=== PATIENT | female | born 1940 | race Caucasian/White ===

== ENCOUNTER → 2017-08-13 11:01 | Outpatient (CLI) | payer MEDICARE, OTHER, SELFPAY ==
[2017-08-13 12:59] LABS: Add Manual Diff / Slide Review NO; Basophils Percent Auto 0.7 % (0-2); Eosinophils Percent Auto 1.2 % (2-4); Hematocrit 39.7 % (36-46); Hemoglobin 13.1 g/dL (12.0-16.0); Lymphocytes Percent Auto 37.5 % (25-40); Mean Corpuscular Hemoglobin 28.9 PG (26-34); Mean Corpuscular Volume 87.7 fL (80-100); Monocytes Percent Auto 8.3 % (3-14); Neutrophils Absolute Auto 2500 /uL (3000-5900); Neutrophils Percent Auto 52.3 % (50-75); Platelet Count 273 X10^3/uL (150-400); Red Blood Cell Count 4.53 X10^6/uL (4.0-5.2); Red Cell Distribution Width 15.5 % (11.6-14.8); White Blood Cell Count 4.9 X10^3/uL (4.5-11.0)
[2017-08-13 13:18] LABS: Alanine Aminotransferase 36 IU/L (9-52); Albumin Globulin Ratio 1.5 (1.0-2.8); Alkaline Phosphatase 102 U/L (38-126); Aspartate Aminotransferase 25 IU/L (14-36); BUN Creatinine Ratio 17.5 (6-22); Bilirubin Total 0.6 mg/dL (0.2-1.3); Blood Urea Nitrogen 14 mg/dL (7-17); Calcium 9.5 mg/dL (8.4-10.2); Carbon Dioxide 25 mmol/L (22-32); Chloride 103 mmol/L (98-107); Cholesterol 179 mg/dL (140-199); Estimated Glomerular Filt Rate > 60.0 mL/min (>60); Globulin 2.7 g/dL (1.7-4.1); Glucose 83 mg/dL (80-110); HDL Cholesterol 78 mg/dL (40-60); HEMOLYSIS < 15 (0-50); LDL Cholesterol Calculated 79 mg/dL (<100); Potassium 4.9 mmol/L (3.4-5.1); Sodium 139 mmol/L (137-145); Total Protein 6.7 g/dL (6.3-8.2); Triglycerides 112 mg/dL (35-150)
[2017-08-13 13:40] LABS: Thyroid Stimulating Hormone 1.31 uIU/mL (0.47-4.68)
== END ==
PROVIDERS: PCP Physician Assistant; Visit Provider Physician Assistant
DX: I10 Essential (primary) hypertension (principal); E03.9 Hypothyroidism, unspecified; E78.5 Hyperlipidemia, unspecified
CPT/HCPCS: 36415; 80053; 80061; 84443; 85025

== ENCOUNTER → 2017-09-20 08:01 | Outpatient (CLI) | payer MEDICARE, OTHER, SELFPAY ==
--- NOTE | 2017-09-20 | DI.MG.S_ITS ---
BILATERAL DIGITAL SCREENING MAMMOGRAM 3D/2D WITH CAD: 09/20/2017 CLINICAL: Routine screening. Family history of breast cancer. Personal history of breast cancer. Comparison is made to exams dated: 09/11/2016 mammogram, 09/11/2015 mammogram, and 09/07/2014 mammogram - [facility]. There are scattered fibroglandular elements in both breasts. Current study was also evaluated with a Computer Aided Detection (CAD) system. There are post operative findings in the left breast. No significant masses, calcifications, or other findings are seen in either breast. There has been no significant interval change. IMPRESSION: NEGATIVE There is no mammographic evidence of malignancy. A 1 year screening mammogram is recommended. This exam was interpreted at Station ID: [id number]. NOTE: For mammograms, a report in lay terms will be sent to the patient. Approximately 15% of breast malignancies will not be visualized mammographically. In the management of a palpable breast mass, a negative mammogram must not discourage biopsy of a clinically suspicious lesion. Electronically Signed By: Dakota stevens/huber:09/20/2017 08:59:12 letter sent: Normal Exam ACR BI-RADS Category 1: Negative [id number]
== END ==
PROVIDERS: Family Provider Physician Assistant; PCP Physician Assistant; Visit Provider Physician Assistant
DX: Z12.31 Encounter for screening mammogram for malignant neoplasm of breast (principal); Z85.3 Personal history of malignant neoplasm of breast; Z80.3 Family history of malignant neoplasm of breast
CPT/HCPCS: 77063; 77067

== ENCOUNTER → 2017-11-17 11:26 | Outpatient (CLI) | payer MEDICARE, OTHER, SELFPAY ==
--- NOTE | 2017-11-17 11:53 | DI.RAD.S_ITS ---
PROCEDURE: XR CERVICAL SPINE 4V OR 5V INDICATIONS: headaches TECHNIQUE: 5 views of the cervical spine were acquired. COMPARISON: None. FINDINGS: Bones: No fractures or dislocations to the T1 level. No suspicious bony lesions. There is normal range of motion between flexion and extension, with preserved normal bony alignment. Note is made of moderately severe degenerative disc height reduction and endplate osteophyte formation at C4-5 and to a slightly lesser degree C5-6. C6-7 and C7-T1 moderate degenerative changes are present also and at none of these levels is significant subluxation during flexion and extension identified. Facet hyperostosis is prominent at C34 through C67, slightly greater on the left than the right Soft tissues: Prevertebral soft tissues are normal in thickness. IMPRESSION: Degenerative disc disease from the mid through the lower thirds of the cervical spine is moderately severe overall with facet hyperostosis through these areas but no ligamentous laxity is seen and no subluxation during flexion and extension was identified. Dictated by: Kevan Denny M.D. on 11/17/2017 at 12:53 Approved by: Kevan Denny M.D. on 11/17/2017 at 12:55
[2017-11-17 12:38] LABS: Erythrocyte Sedimentation Rate 13 MM/HR (0-20)
== END ==
PROVIDERS: Family Provider Physician Assistant; PCP Physician Assistant; Visit Provider Family Medicine
DX: R51 Headache (principal)
CPT/HCPCS: 36415; 72050; 85651

== ENCOUNTER → 2017-11-26 07:25 | Outpatient (CLI) | payer MEDICARE, OTHER, SELFPAY ==
--- NOTE | 2017-11-26 07:26 | DI.MRI.S_ITS ---
PROCEDURE: MR HEAD/BRAIN WO CON INDICATIONS: headaches TECHNIQUE: Non-contrast axial T1 spin echo, axial T2 fast spin echo, sagittal and axial FLAIR, coronal T2 fast spin echo, axial gradient echo, axial diffusion and ADC through the brain. COMPARISON: None. FINDINGS: Image quality: Excellent. CSF spaces: Ventricles appear symmetric in size and shape. Basal cisterns are patent. No extra-axial fluid collections. Brain: No intracranial bleeds or mass effects. There is cerebral volume loss for age. There are periventricular and deep white matter chronic small vessel ischemic changes. Brainstem appears normal. Diffusion-weighted images show no acute ischemic insults. No chronic ischemic insults. Normal intravascular flow voids are present. Skull and face: Calvarial bone marrow is normal in signal. Orbits are normal. Sinuses: Sinuses and mastoids are clear. IMPRESSION: Unremarkable unenhanced examination as above Dictated by: Wilfredo Cummings M.D. on 11/26/2017 at 9:49 Approved by: Wilfredo Cummings M.D. on 11/26/2017 at 9:52
== END ==
PROVIDERS: Family Provider Physician Assistant; PCP Physician Assistant; Visit Provider Family Medicine
DX: R51 Headache (principal)
CPT/HCPCS: 70551

== ENCOUNTER → 2018-06-10 11:57 | Outpatient (CLI) | payer MEDICARE, OTHER, SELFPAY ==
[2018-06-10 15:46] LABS: BUN Creatinine Ratio 15.5 (6-22); Blood Urea Nitrogen 17 mg/dL (7-17); Calcium 9.7 mg/dL (8.4-10.2); Carbon Dioxide 27 mmol/L (22-32); Chloride 98 mmol/L (98-107); Estimated Glomerular Filt Rate 48.2 mL/min (>60); Glucose 99 mg/dL (80-110); HEMOLYSIS < 15 (0-50); Potassium 4.5 mmol/L (3.4-5.1); Sodium 137 mmol/L (137-145)
== END ==
PROVIDERS: PCP Physician Assistant; Visit Provider Internal Medicine Cardiovascular Disease
DX: I10 Essential (primary) hypertension (principal)
CPT/HCPCS: 36415; 80048

== ENCOUNTER → 2018-08-10 13:41 | Outpatient (CLI) | payer MEDICARE, OTHER, SELFPAY ==
[2018-08-10 14:52] LABS: Blood Urea Nitrogen 18 mg/dL (7-17); Calcium 9.6 mg/dL (8.4-10.2); Carbon Dioxide 30 mmol/L (22-32); Chloride 97 mmol/L (98-107); Estimated Glomerular Filt Rate > 60.0 mL/min (>60); Glucose 114 mg/dL (80-110); HEMOLYSIS < 15 (0-50); Potassium 3.7 mmol/L (3.4-5.1); Sodium 135 mmol/L (137-145)
== END ==
PROVIDERS: PCP Physician Assistant; Visit Provider Nurse Practitioner
DX: I10 Essential (primary) hypertension (principal)
CPT/HCPCS: 36415; 80048

== ENCOUNTER → 2018-09-21 09:47 | Outpatient (CLI) | payer MEDICARE, OTHER, SELFPAY ==
--- NOTE | 2018-09-21 | DI.MG.S_ITS ---
BILATERAL DIGITAL SCREENING MAMMOGRAM 3D/2D WITH CAD: 09/21/2018 CLINICAL: Routine screening. Personal history of left breast cancer. Family history of breast cancer. Comparison is made to exams dated: 09/20/2017 mammogram, 09/11/2016 mammogram, and 09/11/2015 mammogram - [facility]. There are scattered fibroglandular elements in both breasts. Current study was also evaluated with a Computer Aided Detection (CAD) system. There are benign post operative findings in the left breast. No significant masses, calcifications, or other findings are seen in either breast. There has been no significant interval change. IMPRESSION: There is no mammographic evidence of malignancy. A 1 year screening mammogram is recommended. This exam was interpreted at Station ID: [id number]. NOTE: For mammograms, a report in lay terms will be sent to the patient. Approximately 15% of breast malignancies will not be visualized mammographically. In the management of a palpable breast mass, a negative mammogram must not discourage biopsy of a clinically suspicious lesion. Electronically Signed By: Estefanía coon/huber:09/21/2018 10:14:42 letter sent: Normal Exam ACR BI-RADS Category 2: Benign Finding(s) 3342F
== END ==
PROVIDERS: PCP Physician Assistant; Visit Provider Physician Assistant
DX: Z12.31 Encounter for screening mammogram for malignant neoplasm of breast (principal); Z85.3 Personal history of malignant neoplasm of breast; Z80.3 Family history of malignant neoplasm of breast
CPT/HCPCS: 77063; 77067

== ENCOUNTER → 2018-11-09 13:08 | Outpatient (CLI) | payer MEDICARE, OTHER, SELFPAY ==
[2018-11-09 14:32] LABS: Alanine Aminotransferase 36 IU/L (9-52); Albumin 4.2 g/dL (3.5-5.0); Albumin Globulin Ratio 1.6 (1.0-2.8); Alkaline Phosphatase 113 U/L (38-126); Aspartate Aminotransferase 28 IU/L (14-36); BUN Creatinine Ratio 21.1 (6-22); Bilirubin Total 0.5 mg/dL (0.2-1.3); Blood Urea Nitrogen 19 mg/dL (7-17); Calcium 10.1 mg/dL (8.4-10.2); Carbon Dioxide 27 mmol/L (22-32); Chloride 94 mmol/L (98-107); Estimated Glomerular Filt Rate > 60.0 mL/min (>60); Globulin 2.7 g/dL (1.7-4.1); Glucose 89 mg/dL (80-110); HEMOLYSIS < 15 (0-50); Potassium 4.4 mmol/L (3.4-5.1); Sodium 134 mmol/L (137-145); Total Protein 6.9 g/dL (6.3-8.2)
== END ==
PROVIDERS: PCP Physician Assistant; Visit Provider Physician Assistant
DX: I10 Essential (primary) hypertension (principal); E03.9 Hypothyroidism, unspecified; E78.2 Mixed hyperlipidemia; R73.09 Other abnormal glucose; R74.8 Abnormal levels of other serum enzymes
CPT/HCPCS: 36415; 80053

== ENCOUNTER 2019-03-27 13:28 | Emergency (ER) | payer MEDICARE, OTHER, SELFPAY ==
[2019-03-27 13:32] VITALS: BP 134/80; PULSE 90; RESP 13; TEMP 36.1; O2SAT 98
--- NOTE | 2019-03-27 13:46 | DI.CT.S_ITS ---
PROCEDURE: CT HEAD/BRAIN WO CON INDICATIONS: left arm numb TECHNIQUE: Noncontrast 4.5 mm thick angled axial sections acquired from the foramen magnum to the vertex, with coronal and sagittal reformats. For radiation dose reduction, the following was used: automated exposure control, adjustment of mA and/or kV according to patient size. COMPARISON: [facility], , MR HEAD/BRAIN WO CON, 11/26/2017, 8:07. FINDINGS: Image quality: Excellent. CSF spaces: Basal cisterns are patent. No extra-axial fluid collections. Ventricles are normal in size and shape. Brain: No midline shift. No intracranial masses or hemorrhage. Hargrove-white matter interface is normal. Skull and face: Calvarium and visualized facial bones are intact, without suspicious lesions. Sinuses: Visualized sinuses and mastoids are clear. IMPRESSION: Negative head CT. No acute intracranial hemorrhage. Dictated by: Thomas Renee M.D. on 03/27/2019 at 13:04 Approved by: Thomas Renee M.D. on 03/27/2019 at 13:05
--- NOTE | 2019-03-27 14:04 | ED_ITS ---
HPI - Neuro Symptoms/Deficit General Chief Complaint: Neuro Symptoms/Deficit Stated Complaint: Pain and Numbness On Left Side Time Seen by Provider: 03/27/19 13:46 Source: patient Mode of arrival: Ambulatory Limitations: no limitations History of Present Illness HPI Narrative: Patient is a 78-year-old female who presents with left arm numbness off and on for while however this morning around 8:00 a.m. she felt lik e it was worse. She has no weakness no neck pain. She has had headache a little bit as well. She says that she has some pain from her shoulder to her fingertips. It is not reproduced whenever she turns her head. She does remember injuring it. She has no difficulty speaking or other focal deficits. She states that she did take nitroglycerin prior to arrival she has no known coronary artery disease is however she does have nitroglycerin she said it did not help. However she did not have any chest pain or shortness of breath or shortness of breath with exertion she denies any heart palpitations. Onset (ago): hour(s) On Anticoagulants: No (baby asa) Related Data Home Medications Medication Instructions Recorded Confirmed alprazolam 0.25 mg PO BEDTIME PRN #0 09/28/08 03/27/19 citalopram 20 mg PO DAILY #0 09/28/08 03/27/19 diltiazem HCl 120 mg PO DAILY #0 06/30/16 03/27/19 aspirin 81 mg PO DAILY 03/27/19 03/27/19 calcium carbonate-vitamin D3 1 tab PO DAILY 03/27/19 03/27/19 [Caltrate 600 plus D] chlorthalidone 25 mg PO DAILY 03/27/19 03/27/19 cholecalciferol (vitamin D3) 2,000 unit PO DAILY 03/27/19 03/27/19 [Vitamin D3] cyanocobalamin (vitamin B-12) 1,000 mcg PO DAILY 03/27/19 03/27/19 [Vitamin B-12] irbesartan 300 mg PO DAILY 03/27/19 03/27/19 levothyroxine 50 mcg PO DAILY 03/27/19 03/27/19 fejkpuqe-dbv-RS-lycopen-lutein 1 tab PO DAILY 03/27/19 03/27/19 [Centrum Silver] nitroglycerin [Nitrostat] 0.4 mg SUBLINGUAL PRN PRN 03/27/19 03/27/19 ondansetron 4 mg TRANSLINGUAL DAILY 03/27/19 03/27/19 Allergies Allergy/AdvReac Type Severity Reaction Status Date / Time Sulfa (Sulfonamide Allergy Severe rash Verified 12/14/17 14:10 Antibiotics) [SULFA (SULFONAMIDE ANTIBIOTICS)] lisinopril [LISINOPRIL] Allergy Intermediate Cough Verified 12/14/17 14:10 Review of Systems Review of Systems ROS Unobtainable: All systems reviewed & are unremarkable except as noted in HPI and below Constitutional Constitutional: Denies chills, Denies fever(s), Denies lethargy and Denies weakness Eyes Eyes: Denies change in vision, Denies eye discharge, Denies irritation and Denies loss of vision Cardiovascular Cardiovascular: Denies chest pain, Denies irregular heart rhythm, Denies lightheadedness, Denies palpitations, Denies dyspnea, Denies dyspnea on exertion and Denies orthopnea Respiratory Respiratory: Denies cough, Denies dyspnea, Denies dyspnea on exertion and Denies wheezing Gastrointestinal Gastrointestinal: Denies abdominal pain, Denies change in bowel habits, Denies diarrhea, Denies nausea and Denies vomiting Genitourinary Genitourinary: Denies hematuria, Denies flank pain, Denies urinary incontinence and Denies urinary urgency Musculoskeletal Musculoskeletal: Denies back pain, Denies muscle weakness, Reports numbness and Reports tingling Integumentary/Breasts Skin/Breast: Denies pruritus, Denies erythema, Denies rash and Denies wounds Neurologic Neurologic: Reports as per HPI, Denies loss of vision, Reports numbness, Reports tingling and Denies weakness Endocrine Endocrine: Denies palpitations Allergic/Immunologic Allergic/Immunologic: Denies wheezing Patient History Social History Smoking Status: Never smoker Smoking Status: Never smoker Substance Use Type: does not use Exam Initial Vital Signs Initial Vital Signs: Vital Signs Temperature 97 F L 03/27/19 13:32 Pulse Rate 90 03/27/19 13:32 Respiratory Rate 13 03/27/19 13:32 Blood Pressure 134/80 03/27/19 13:32 Pulse Oximetry 98 03/27/19 13:32 GENERAL: Well-appearing, well-nourished and in no acute distress. HEENT: Head atraumatic,EOMI, pupils reactive, face symmetric CARDIOVASCULAR: Regular rate and rhythm without murmurs, rubs or gallops. RESPIRATORY: Breath sounds equal bilaterally, no wheezes rales or rhonchi. ABDOMEN: Soft, nontender. Normoactive bowel sounds all 4 quadrants. No guarding or rebound. EXTREMITIES: Normal range of motion, no clubbing or edema. Neurovascularly intact NEUROLOGICAL: Alert and oriented x4.Normal gait and speech. Cranial nerves II through XII grossly intact. Good jagkoy-op-skhc, good tkow-xi-ubay, strength equal bilaterally, no dysarthria or aphasia, sensation in tact to soft touch bilaterally, no visual changes, no facial droop SKIN: Warm, dry, no laceration, no petechiae, no rashes or lesions. Scores NIH Stroke Scale Level of Conciousness: Alert, keenly responsive Ask month/age: Answers both questions correctly. Open/close eyes, close hand: Performs both tasks correctly Best gaze horizontal: Normal Visual borrego: No visual loss Facial palsy: Normal symetrical movement Left arm drift: No drift for full 10 sec Right arm drift: No drift for full 10 sec Left leg drift: No drift for full 10 sec Right leg drift: No drift for full 10 sec Limb ataxia: Absent Sensory on face/arms/legs: Normal, no sensory loss Best language: No aphasia, normal Dysarthria: Normal Extinction or inattention: No abnormality Total NIH Stroke scale score: 0 Course Orders Ordered: Discontinued Medications Sodium Chloride (Normal Saline 0.9%) 1,000 mls @ 150 mls/hr IV CONT RONAL Vital Signs Vital signs: Vital Signs - 8 hr 03/27/19 13:32 03/27/19 14:30 03/27/19 16:10 Temperature 97 F L Pulse Rate 90 59 L 56 L Respiratory Rate 13 14 19 Blood Pressure 134/80 Blood Pressure [Right Arm] 125/76 143/78 H Pulse Oximetry 98 100 100 MDM - Neuro Symptoms/Deficit Lab Data Attestation: I reviewed the patient's lab results. Result diagrams: 03/27/19 14:09 03/27/19 14:09 Labs: Lab Results 03/27/19 03/27/19 03/27/19 Range/Units 14:09 14:09 14:09 WBC 5.8 (4.5-11.0) X10^3/uL RBC 4.17 (4.0-5.2) X10^6/uL Hgb 12.5 (12.0-16.0) g/dL Hct 37.2 (36-46) % MCV 89.4 (80-100) fL MCH 30.1 (26-34) PG MCHC 33.6 (30-36) % RDW 14.6 (11.6-14.8) % Plt Count 311 (150-400) X10^3/uL Neut % (Auto) 53.8 (50-75) % Lymph % (Auto) 36.1 (25-40) % [place] % (Auto) 8.2 (3-14) % Eos % (Auto) 1.2 L (2-4) % Baso % (Auto) 0.7 (0-2) % Neut # (Auto) 3100 (6289-7522) /uL Lymph # (Auto) 2100 (4262-1448) /uL [place]ard # (Auto) 500 (0-900) /uL Eos # (Auto) 100 (0-450) /uL Baso # (Auto) 0 (0-100) /uL PT 9.9 L (10.1-12.7) SECONDS INR 0.9 (0.9-1.3) APTT 31 (26.4-36.2) SECONDS Sodium 136 L (137-145) mmol/L Potassium 3.9 (3.4-5.1) mmol/L Chloride 99 (98-107) mmol/L Carbon Dioxide 30 (22-32) mmol/L BUN 22 H (7-17) mg/dL Creatinine 1.00 (0.52-1.04) mg/dL Estimated GFR 53.6 L (>60) mL/min BUN/Creatinine Ratio 22.0 (6-22) Glucose 106 (80-110) mg/dL Calcium 9.5 (8.4-10.2) mg/dL Urine RBC (0-5/HPF) Urine WBC (0-5/HPF) Ur Renal Epithelial Cell (0-1/HPF) Amorphous Sediment Urine Bacteria (None) Ur Culture Indicated? U Opiates 300ng/mL cut (Negative) Ur Oxycodone Screen (Negative) Urine Methadone Screen (Negative) Ur Barbiturates Screen (Negative) U Tricyclic Antidepress (Negative) Ur Phencyclidine Scrn (Negative) Ur Amphetamines Screen (Negative) U Methamphetamines Scrn (Negative) Ur MDMA Scrn (Ecstasy) (Negative) U Benzodiazepines Scrn (Negative) Urine Cocaine Screen (Negative) U Marijuana (THC) Screen (Negative) 03/27/19 03/27/19 Range/Units 16:10 16:10 WBC (4.5-11.0) X10^3/uL RBC (4.0-5.2) X10^6/uL Hgb (12.0-16.0) g/dL Hct (36-46) % MCV (80-100) fL MCH (26-34) PG MCHC (30-36) % RDW (11.6-14.8) % Plt Count (150-400) X10^3/uL Neut % (Auto) (50-75) % Lymph % (Auto) (25-40) % [place]ard % (Auto) (3-14) % Eos % (Auto) (2-4) % Baso % (Auto) (0-2) % Neut # (Auto) (9489-2437) /uL Lymph # (Auto) (3846-8900) /uL Menard # (Auto) (0-900) /uL Eos # (Auto) (0-450) /uL Baso # (Auto) (0-100) /uL PT (10.1-12.7) SECONDS INR (0.9-1.3) APTT (26.4-36.2) SECONDS Sodium (137-145) mmol/L Potassium (3.4-5.1) mmol/L Chloride (98-107) mmol/L Carbon Dioxide (22-32) mmol/L BUN (7-17) mg/dL Creatinine (0.52-1.04) mg/dL Estimated GFR (>60) mL/min BUN/Creatinine Ratio (6-22) Glucose (80-110) mg/dL Calcium (8.4-10.2) mg/dL Urine RBC 0-1/hpf (0-5/HPF) Urine WBC 1-5/hpf (0-5/HPF) Ur Renal Epithelial Cell 1-5/hpf H (0-1/HPF) Amorphous Sediment 1+ Urine Bacteria Moderate (10-30) H (None) Ur Culture Indicated? Specimen cultured U Opiates 300ng/mL cut Negative (Negative) Ur Oxycodone Screen Negative (Negative) Urine Methadone Screen Negative (Negative) Ur Barbiturates Screen Negative (Negative) U Tricyclic Antidepress Negative (Negative) Ur Phencyclidine Scrn Negative (Negative) Ur Amphetamines Screen Negative (Negative) U Methamphetamines Scrn Negative (Negative) Ur MDMA Scrn (Ecstasy) Negative (Negative) U Benzodiazepines Scrn Negative (Negative) Urine Cocaine Screen Negative (Negative) U Marijuana (THC) Screen Negative (Negative) Urine Dip Bedside Urine Glucose Negative Bedside Urine Bilirubin - Negative Bedside Urine Ketone - Negative Urine Specific [place] 1.015 Bedside Urine Occult Blood - Negative Bedside Urine pH 7.0 Bedside Urine Protein - Negative Bedside Urine Urobilinogen - Negative Bedside Urine Nitrite - Negative Bedside Urine Leukocytes +/- [address] scan - head: Radiologist's Impression: PROCEDURE: CT HEAD/BRAIN WO CON INDICATIONS: left arm numb TECHNIQUE: Noncontrast 4.5 mm thick angled axial sections acquired from the foramen magnum to the vertex, with coronal and sagittal reformats. For radiation dose reduction, the following was used: automated exposure control, adjustment of mA and/or kV according to patient size. COMPARISON: [facility], , MR HEAD/BRAIN WO CON, 11/26/2017, 8:07. FINDINGS: Image quality: Excellent. CSF spaces: Basal cisterns are patent. No extra-axial fluid collections. Ventricles are normal in size and shape. Brain: No midline shift. No intracranial masses or hemorrhage. Hargrove-white matter interface is normal. Skull and face: Calvarium and visualized facial bones are intact, without suspicious lesions. Sinuses: Visualized sinuses and mastoids are clear. IMPRESSION: Negative head CT. No acute intracranial hemorrhage. Dictated by: Thomas Renee M.D. on 03/27/2019 at 13:04 CT - cervical spine: Radiologist's Impression: PROCEDURE: CT CERVICAL SPINE WO CON INDICATIONS: left arm numb TECHNIQUE: Noncontrast 3 mm thick sections acquired from the skull base to the T4 level. Sagittal and coronal reformats were then constructed. For radiation dose reduction, the following was used: automated exposure control, adjustment of mA and/or kV according to patient size. COMPARISON: None. FINDINGS: Image quality: Excellent. Bones: No fractures or dislocations. Visualized superior ribs are intact. Note is made of moderately severe degenerative disc disease along the cervical spine from C4- 5 through C7-T1. Slight anterolisthesis (grade 1) of C3 on C4 is present, likely due to to ligamentous laxity from degenerative change. Facet osteoarthritis is moderate in severity from C4-T1, as potential etiology for nerve root impingement. Soft tissues: Prevertebral soft tissues are normal in thickness. No paravertebral hematomas. No apical pneumothoraces. IMPRESSION: Multilevel degenerative disc disease and facet osteoarthritis to the degree that spinal and foraminal stenosis likely is present. This extends from C4 through T1, and followup by accurate assessment with MR scanning for degree of nerve root impingement and possible disc bulge or herniation contributing to current symptomatology may be warranted. No trauma found. Dictated by: Kevan Denny M.D. on 03/27/2019 at 15:12 ECG Data Attestation: I personally reviewed and interpreted this ECG as follows: Prior ECG tracings: available for review Interpretation: The normal sinus rhythm rate 59 p.r. interval 252 QRS [address] elevation depression or T-wave inversions similar to previous EKG 2015 [facility] Narrative Medical decision making narrative: Patient has been having intermittent left arm numbness ongoing for awhile. CT of cervical spine does show significant degenerative changes. Symptoms seem to be more consistent with a neuropathy rather than cardiac or neurologic. I did recommend she have outpatient MRI with her PCP. 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 *What to do: Recommend MRI possible spine surgery consultation *Continue to take medications as directed Tylenol 650 mg every 4-6 hours if needed for pain *Follow up with your primary care provider in 2-3 days *Return to ER if you should have increasing weakness inability to grab things worsening numbness chest pain she or any new, worsening or concerning symptoms Prescriptions: No Action alprazolam 0.25 mg Tablet 0.25 mg PO BEDTIME PRN (Reason: Anxiety) Qty: 0 RF: 0 citalopram 20 mg Tablet 20 mg PO DAILY Qty: 0 RF: 0 diltiazem HCl 120 MG capsule,extended release 24hr 120 mg PO DAILY Qty: 0 RF: 0 chlorthalidone 25 mg tablet 25 mg PO DAILY RF: 0 aspirin 81 mg Tablet,Delayed Release (Dr/Ec) 81 mg PO DAILY RF: 0 levothyroxine 50 mcg tablet 50 mcg PO DAILY RF: 0 irbesartan 300 mg tablet 300 mg PO DAILY RF: 0 nitroglycerin [Nitrostat] 0.4 mg Tablet, Sublingual 0.4 mg sublingual PRN PRN (Reason: Chest Pain) RF: 0 ondansetron 4 mg tablet,disintegrating 4 mg translingual DAILY RF: 0 Centrum Silver 0.4-300-250 mg-mcg-mcg Tablet 1 tab PO DAILY RF: 0 cyanocobalamin (vitamin B-12) [Vitamin B-12] 1,000 mcg Tablet 1,000 mcg PO DAILY RF: 0 cholecalciferol (vitamin D3) [Vitamin D3] 2,000 unit Tablet 2,000 unit PO DAILY RF: 0 Caltrate 600 plus D 600 mg (1,500 mg)-800 unit Tablet,Chewable 1 tab PO DAILY RF: 0 Referrals: Nereyda Oliver PA-C [Primary Care Provider] -
[2019-03-27 14:18] LABS: Add Manual Diff / Slide Review NO; Basophils Absolute Auto 0 /uL (0-100); Basophils Percent Auto 0.7 % (0-2); Eosinophils Absolute Auto 100 /uL (0-450); Eosinophils Percent Auto 1.2 % (2-4); Hematocrit 37.2 % (36-46); Hemoglobin 12.5 g/dL (12.0-16.0); Lymphocytes Absolute Auto 2100 /uL (1100-4500); Lymphocytes Percent Auto 36.1 % (25-40); Mean Corpuscular HGB Conc 33.6 % (30-36); Mean Corpuscular Hemoglobin 30.1 PG (26-34); Mean Corpuscular Volume 89.4 fL (80-100); Monocytes Absolute Auto 500 /uL (0-900); Monocytes Percent Auto 8.2 % (3-14); Neutrophils Absolute Auto 3100 /uL (1500-7000); Neutrophils Percent Auto 53.8 % (50-75); Platelet Count 311 X10^3/uL (150-400); Red Blood Cell Count 4.17 X10^6/uL (4.0-5.2); Red Cell Distribution Width 14.6 % (11.6-14.8); White Blood Cell Count 5.8 X10^3/uL (4.5-11.0)
[2019-03-27 14:25] LABS: INR 0.9 (0.9-1.3); Prothrombin Time 9.9 SECONDS (10.1-12.7)
[2019-03-27 14:28] LABS: Blood Urea Nitrogen 22 mg/dL (7-17); Calcium 9.5 mg/dL (8.4-10.2); Carbon Dioxide 30 mmol/L (22-32); Chloride 99 mmol/L (98-107); Estimated Glomerular Filt Rate 53.6 mL/min (>60); Glucose 106 mg/dL (80-110); HEMOLYSIS 15 (0-50); PTT Partial Thromboplastin Tim 31 SECONDS (26.4-36.2); Potassium 3.9 mmol/L (3.4-5.1); Sodium 136 mmol/L (137-145)
--- NOTE | 2019-03-27 14:29 | DI.CT.S_ITS ---
PROCEDURE: CT CERVICAL SPINE WO CON INDICATIONS: left arm numb TECHNIQUE: Noncontrast 3 mm thick sections acquired from the skull base to the T4 level. Sagittal and coronal reformats were then constructed. For radiation dose reduction, the following was used: automated exposure control, adjustment of mA and/or kV according to patient size. COMPARISON: None. FINDINGS: Image quality: Excellent. Bones: No fractures or dislocations. Visualized superior ribs are intact. Note is made of moderately severe degenerative disc disease along the cervical spine from C4-5 through C7-T1. Slight anterolisthesis (grade 1) of C3 on C4 is present, likely due to to ligamentous laxity from degenerative change. Facet osteoarthritis is moderate in severity from C4-T1, as potential etiology for nerve root impingement. Soft tissues: Prevertebral soft tissues are normal in thickness. No paravertebral hematomas. No apical pneumothoraces. IMPRESSION: Multilevel degenerative disc disease and facet osteoarthritis to the degree that spinal and foraminal stenosis likely is present. This extends from C4 through T1, and followup by accurate assessment with MR scanning for degree of nerve root impingement and possible disc bulge or herniation contributing to current symptomatology may be warranted. No trauma found. Dictated by: Kevan Denny M.D. on 03/27/2019 at 15:12 Approved by: Kevan Denny M.D. on 03/27/2019 at 15:14
[2019-03-27 14:30] VITALS: BP 125/76; PULSE 59; RESP 14; O2SAT 100
[2019-03-27 16:10] VITALS: BP 143/78; PULSE 56; RESP 19; O2SAT 100
[2019-03-27 16:39] LABS: Amorphous Sediment Urine 1+; Bacteria Urine Moderate (10-30); Culture Indicated Urine Specimen Cultured; RBC Urine 0-1/HPF (0-5/HPF); Renal Epithelial Cells Urine 1-5/HPF (0-1/HPF); WBC Urine 1-5/HPF (0-5/HPF)
[2019-03-27 17:12] LABS: UR Morphine/Opiate cutoff 300 Negative (Negative); Ur Creatinine Normal (Normal); Ur Specific Gravity Normal (Normal); Urine Amphetamines Negative (Negative); Urine Barbiturates Negative (Negative); Urine Benzodiazepines Negative (Negative); Urine Cocaine Negative (Negative); Urine MDMA Negative (Negative); Urine Methadone Negative (Negative); Urine Methamphetamines Negative (Negative); Urine Oxycodone Negative (Negative); Urine Phencyclidine Negative (Negative); Urine Tetrahydrocannabinol Negative (Negative); Urine Tricyclic Antidepressant Negative (Negative); Urine pH Normal (Normal)
== END 2019-03-27 17:11 | disposition home or self-care (01) ==
PROVIDERS: Emergency Provider Emergency Medicine; PCP Physician Assistant
DX: G62.9 Polyneuropathy, unspecified (principal); R07.9 Chest pain, unspecified
CPT/HCPCS: 36415; 70450; 72125; 80048; 80305; 81003; 81015; 85025; 85610; 85730; 87086; 93005; 99284; 99285

== ENCOUNTER → 2019-04-05 09:39 | Outpatient (CLI) | payer MEDICARE, OTHER, SELFPAY ==
--- NOTE | 2019-04-05 | DI.MRI.S_ITS ---
PROCEDURE: MR CERVICAL SPINE WO CON INDICATIONS: Cervical root disorders, not elsewhere classified TECHNIQUE: Noncontrast sagittal T1 spin echo and T2 fast spin echo, sagittal STIR, foraminal oblique sagittal T2 fast spin echo, and axial gradient echo or T2 fast spin echo through the cervical spine. COMPARISON: [facility], CT, CT CERVICAL SPINE WO CON, 03/27/2019, 14:41. [facility], MR, C-SPINE WITHOUT CONTRAST, 06/02/2012, 15:34. FINDINGS: Image quality: Excellent. Alignment and Curvature: There is mild straightening of normal cervical curvature. There is trace anterolisthesis of C3 on C4, trace retrolisthesis of C4 on C5, C5 on C6. Bone Marrow: Marrow demonstrates normal overall signal. Spinal Cord: Visualized spinal cord has normal size and signal. No cerebellar tonsillar herniation. Paraspinous Soft Tissues: No paravertebral masses. Prevertebral soft tissues are normal in thickness. Discs: Moderate to severe desiccation is present cervical spine. C2-C3: Mild disc bulge without spinal stenosis. There is mild bilateral foraminal narrowing, progressive compared to prior exam. C3-C4: Mild disc bulge with minimal effacement of the anterior thecal sac. Mild to moderate left and mild right foraminal narrowing with uncovertebral hypertrophy, progressive compared to prior exam. C4-C5: Mild disc bulge with moderate spinal stenosis. Severe right and moderate to severe left foraminal narrowing with uncovertebral hypertrophy, progressive compared to prior exam. C5-C6: Mild disc bulge with moderate spinal stenosis. Mild left and moderate right foraminal narrowing with uncovertebral hypertrophy, progressive compared to prior exam. C6-C7: Mild disc bulge with moderate spinal stenosis. Mild left and mild to moderate right foraminal narrowing with uncovertebral hypertrophy, progressive compared to prior exam. C7-T1: Mild disc bulge with mild spinal stenosis. There is a disc protrusion/extrusion with caudal migration, extending from the inferior margin of the C7-T1 disc space and extending to the level of T1-T2. It is posterior central with indentation of the anterior thecal sac. Moderate to severe right and mild to moderate left foraminal narrowing with uncovertebral hypertrophy. IMPRESSION: 1. Multilevel degenerative changes demonstrate interval progression as above. 2. Posterior central disc protrusion/extrusion with caudal migration extending from the inferior margin of C7-T1 through T1-T2 with indentation of the anterior thecal sac. Dictated by: Kymberly Colindres M.D. on 04/05/2019 at 12:38 Approved by: Kymberly Colindres M.D. on 04/05/2019 at 12:58
== END ==
PROVIDERS: PCP Physician Assistant; Visit Provider Physician Assistant
DX: M47.812 Spondylosis without myelopathy or radiculopathy, cervical region (principal); M50.23 Other cervical disc displacement, cervicothoracic region; M51.24 Other intervertebral disc displacement, thoracic region; R29.898 Other symptoms and signs involving the musculoskeletal system; R20.2 Paresthesia of skin
CPT/HCPCS: 72141

== ENCOUNTER → 2019-10-20 10:29 | Outpatient (CLI) | payer MEDICARE, OTHER, SELFPAY ==
--- NOTE | 2019-10-20 | DI.MG.S_ITS ---
BILATERAL DIGITAL SCREENING MAMMOGRAM 3D/2D WITH CAD POST LUMPECTOMY: 10/20/2019 CLINICAL: Routine screening. Personal history of left breast cancer. Family history of breast cancer. Comparison is made to exams dated: 09/21/2018 mammogram, 09/20/2017 mammogram, 09/11/2016 mammogram, 09/07/2014 mammogram, and 09/06/2013 mammogram - [facility]. There are scattered fibroglandular elements in both breasts. Current study was also evaluated with a Computer Aided Detection (CAD) system. There are benign post operative findings in the left breast. No significant masses, calcifications, or other findings are seen in either breast. There has been no significant interval change. IMPRESSION: BENIGN There is no mammographic evidence of malignancy. A 1 year screening mammogram is recommended. This exam was interpreted at Station ID: [id number]. NOTE: For mammograms, a report in lay terms will be sent to the patient. Approximately 15% of breast malignancies will not be visualized mammographically. In the management of a palpable breast mass, a negative mammogram must not discourage biopsy of a clinically suspicious lesion. Electronically Signed By: Wilber mccormick/huber:10/20/2019 15:47:22 letter sent: Normal Exam ACR BI-RADS Category 2: Benign Finding(s) 3342F
== END ==
PROVIDERS: PCP Physician Assistant; Referring Provider Physician Assistant; Visit Provider Physician Assistant
DX: Z12.31 Encounter for screening mammogram for malignant neoplasm of breast (principal); Z85.3 Personal history of malignant neoplasm of breast; Z80.3 Family history of malignant neoplasm of breast
CPT/HCPCS: 77063; 77067

== ENCOUNTER → 2019-10-30 21:45 | Outpatient (ROUT) | payer MEDICARE, OTHER, SELFPAY ==
[2019-10-30 22:02] LABS: Add Manual Diff / Slide Review NO; Basophils Absolute Auto 0 /uL (0-100); Basophils Percent Auto 0.9 % (0-2); Eosinophils Absolute Auto 100 /uL (0-450); Eosinophils Percent Auto 1.4 % (2-4); Hematocrit 35.6 % (36-46); Hemoglobin 11.8 g/dL (12.0-16.0); Lymphocytes Absolute Auto 2100 /uL (1100-4500); Lymphocytes Percent Auto 42.8 % (25-40); Mean Corpuscular HGB Conc 33.2 % (30-36); Mean Corpuscular Hemoglobin 29.7 PG (26-34); Mean Corpuscular Volume 89.3 fL (80-100); Monocytes Absolute Auto 500 /uL (0-900); Monocytes Percent Auto 9.3 % (3-14); Neutrophils Absolute Auto 2200 /uL (1500-7000); Neutrophils Percent Auto 45.6 % (50-75); Platelet Count 279 X10^3/uL (150-400); Red Blood Cell Count 3.98 X10^6/uL (4.0-5.2); Red Cell Distribution Width 14.8 % (11.6-14.8); White Blood Cell Count 4.8 X10^3/uL (4.5-11.0)
[2019-10-30 22:28] LABS: Alanine Aminotransferase 18 IU/L (<35); Albumin 3.9 g/dL (3.5-5.0); Albumin Globulin Ratio 1.4 (1.0-2.8); Alkaline Phosphatase 82 U/L (38-126); Aspartate Aminotransferase 26 IU/L (14-36); Bilirubin Total 0.4 mg/dL (0.2-1.3); Blood Urea Nitrogen 25 mg/dL (7-17); Calcium 9.3 mg/dL (8.4-10.2); Carbon Dioxide 28 mmol/L (22-32); Chloride 99 mmol/L (98-107); Cholesterol 156 mg/dL (140-199); Estimated Glomerular Filt Rate 53.5 mL/min (>60); Globulin 2.7 g/dL (1.7-4.1); Glucose 91 mg/dL (80-110); HDL Cholesterol 78 mg/dL (40-60); HEMOLYSIS < 15 (0-50); LDL Cholesterol Calculated 46 mg/dL (<100); Sodium 134 mmol/L (137-145); Total Protein 6.6 g/dL (6.3-8.2); Triglycerides 160 mg/dL (35-150)
[2019-10-30 22:52] LABS: TSH w/ Reflex to FT4 1.57 uIU/mL (0.47-4.68)
== END ==
PROVIDERS: PCP Physician Assistant; Visit Provider Physician Assistant
DX: I10 Essential (primary) hypertension (principal); E03.9 Hypothyroidism, unspecified; E78.5 Hyperlipidemia, unspecified
CPT/HCPCS: 80053; 80061; 84443; 85025

== ENCOUNTER → 2020-07-01 09:45 | Outpatient (CLI) | payer MEDICARE, OTHER, SELFPAY ==
[2020-07-01 10:39] LABS: Add Manual Diff / Slide Review NO; Basophils Absolute Auto 0 /uL (0-100); Basophils Percent Auto 0.6 % (0-2); Eosinophils Absolute Auto 0 /uL (0-450); Eosinophils Percent Auto 1.1 % (2-4); Hematocrit 36.3 % (36-46); Hemoglobin 12.1 g/dL (12.0-16.0); Lymphocytes Absolute Auto 1700 /uL (1100-4500); Lymphocytes Percent Auto 37.8 % (25-40); Mean Corpuscular HGB Conc 33.4 % (30-36); Mean Corpuscular Hemoglobin 29.6 PG (26-34); Mean Corpuscular Volume 88.5 fL (80-100); Monocytes Absolute Auto 400 /uL (0-900); Monocytes Percent Auto 8.8 % (3-14); Neutrophils Absolute Auto 2300 /uL (1500-7000); Neutrophils Percent Auto 51.7 % (50-75); Platelet Count 294 X10^3/uL (150-400); White Blood Cell Count 4.5 X10^3/uL (4.5-11.0)
--- NOTE | 2020-07-01 10:47 | DI.RAD.S_ITS ---
PROCEDURE: XR KNEE RT 1TO2V INDICATIONS: BI KNEE PAIN TECHNIQUE: 3 views of the knee were acquired. COMPARISON: [facility], , KNEE 3V RIGHT, 05/05/2010, 10:35. FINDINGS: Bones: No fractures or dislocations. No suspicious bony lesions. Soft tissues: No joint effusion. No suspicious soft tissue calcifications. IMPRESSION: Moderate to moderately severe medial compartment and mild lateral compartment knee joint space narrowing. This has worsened from the comparison study from 05/05/10. Dictated by: Kevan Denny M.D. on 07/01/2020 at 12:56 Approved by: Kevan Denny M.D. on 07/01/2020 at 12:57
--- NOTE | 2020-07-01 10:47 | DI.RAD.S_ITS ---
PROCEDURE: XR KNEE LT 1TO2V INDICATIONS: BI KNEE PAIN TECHNIQUE: 3 views of the knee were acquired. COMPARISON: None. FINDINGS: Bones: No fractures or dislocations. No suspicious bony lesions. Soft tissues: No joint effusion. No suspicious soft tissue calcifications. IMPRESSION: There is moderately severe medial compartment and moderate lateral compartment knee joint space narrowing consistent with osteoarthritis as the underlying cause. Dictated by: Kevan Denny M.D. on 07/01/2020 at 12:54 Approved by: Kevan Denny M.D. on 07/01/2020 at 12:55
[2020-07-01 10:50] LABS: Hemoglobin A1C% w Est Avg Glu 5.7 % (4.0-6.0)
[2020-07-01 11:01] LABS: Alanine Aminotransferase 23 IU/L (<35); Albumin 4.2 g/dL (3.5-5.0); Albumin Globulin Ratio 1.4 (1.0-2.8); Alkaline Phosphatase 86 U/L (38-126); Aspartate Aminotransferase 33 IU/L (14-36); BUN Creatinine Ratio 21.3 (6-22); Bilirubin Total 0.3 mg/dL (0.2-1.3); Blood Urea Nitrogen 20 mg/dL (7-17); C-Reactive Protein Quant < 0.5 mg/dL (<1.0); Carbon Dioxide 30 mmol/L (22-32); Chloride 99 mmol/L (98-107); Cholesterol 187 mg/dL (140-199); Estimated Glomerular Filt Rate 57.4 mL/min (>60); Globulin 3.1 g/dL (1.7-4.1); Glucose 95 mg/dL (80-110); HDL Cholesterol 81 mg/dL (40-60); HEMOLYSIS < 15 (0-50); LDL Cholesterol Calculated 82 mg/dL (<100); Potassium 4.5 mmol/L (3.4-5.1); Sodium 135 mmol/L (137-145); Total Protein 7.3 g/dL (6.3-8.2); Triglycerides 122 mg/dL (35-150)
[2020-07-01 11:08] LABS: Erythrocyte Sedimentation Rate 12 MM/HR (0-20)
[2020-07-01 11:31] LABS: TSH w/ Reflex to FT4 3.48 uIU/mL (0.47-4.68)
[2020-07-03 11:36] LABS: Albumin 3.9 g/dL (2.9-4.4); Alpha-1-Globulin 0.3 g/dL (0.0-0.4); Alpha-2-Globulin 0.8 g/dL (0.4-1.0); Gamma Globulin 0.9 g/dL (0.4-1.8); Globulin Total 2.9 g/dL (2.2-3.9); Protein, Total 6.8 g/dL (6.0-8.5)
== END ==
PROVIDERS: PCP Physician Assistant; Referring Provider Physician Assistant; Visit Provider Physician Assistant
DX: E03.9 Hypothyroidism, unspecified (principal); I10 Essential (primary) hypertension; G62.9 Polyneuropathy, unspecified; E78.5 Hyperlipidemia, unspecified; R51.9 Headache, unspecified; R20.0 Anesthesia of skin; M25.561 Pain in right knee; M25.562 Pain in left knee
CPT/HCPCS: 36415; 73560; 80053; 80061; 83036; 84155; 84165; 84443; 85025; 85651; 86140

== ENCOUNTER → 2020-07-15 12:19 | Outpatient (CLI) | payer MEDICARE, OTHER, SELFPAY ==
--- NOTE | 2020-07-15 12:21 | DI.RAD.S_ITS ---
PROCEDURE: XR CERVICAL SPINE 2V OR 3V INDICATIONS: CERVICAL NEUROPATHY TECHNIQUE: 3 view(s) of the cervical spine were acquired. COMPARISON: [facility], CR, XR CERVICAL SPINE 4V OR 5V, 11/17/2017, 11:31. FINDINGS: Bones: No fracture identified. Trace anterolisthesis of C3 on C4. Straightening of the normal lordotic curvature. Severe narrowing of the C4-C5 disc space and moderate narrowing of the remaining cervical disc spaces, with sparing at C3-C4. Multilevel spondylosis/endplate changes. Diffuse facet arthropathy. Soft tissues: No prevertebral soft tissue swelling. IMPRESSION: Multilevel cervical spondylosis and facet disease, with slight interval progression at C4-C5. Straightening of the normal lordotic curvature. Dictated by: Wilfredo Cummings M.D. on 07/15/2020 at 14:21 Approved by: Wilfredo Cummings M.D. on 07/15/2020 at 14:23
--- NOTE | 2020-07-15 12:21 | DI.RAD.S_ITS ---
PROCEDURE: XR THORACIC SPINE 3V INDICATIONS: pain TECHNIQUE: 3 views of the thoracic spine were acquired. COMPARISON: None. FINDINGS: Bones: No acute fracture. Multilevel spondylosis/endplate changes. Diffuse facet arthropathy. Mild diffuse narrowing of the thoracic disc spaces. Partially visualized lateral curvature of the spine. Lower cervical spondylosis also noted. Soft tissues: Scattered surgical clips project in the right upper quadrant. IMPRESSION: Diffuse thoracic spondylosis and facet arthropathy Dictated by: Wilfredo Cummings M.D. on 07/15/2020 at 13:09 Approved by: Wilfredo Cummings M.D. on 07/15/2020 at 13:10
--- NOTE | 2020-07-15 12:21 | DI.RAD.S_ITS ---
PROCEDURE: XR LUMBAR SPINE 2-3V INDICATIONS: pain TECHNIQUE: 3 views of the lumbar spine were acquired. COMPARISON: None. FINDINGS: Bones: No acute fracture identified. Partially visualized scoliosis. Multilevel spondylosis/endplate changes. Diffuse facet arthropathy. Moderate to severe narrowing of the lumbar spaces diffusely. Soft tissues: Scattered surgical clips incidentally noted. IMPRESSION: Moderate to severe diffuse spondylosis and facet arthropathy. Partially visualized scoliosis Dictated by: Wilfredo Cummings M.D. on 07/15/2020 at 13:07 Approved by: Wilfredo Cummings M.D. on 07/15/2020 at 13:09
== END ==
PROVIDERS: PCP Physician Assistant; Referring Provider Physician Assistant; Visit Provider Physician Assistant
DX: M47.26 Other spondylosis with radiculopathy, lumbar region (principal); M47.24 Other spondylosis with radiculopathy, thoracic region; M47.22 Other spondylosis with radiculopathy, cervical region; M41.9 Scoliosis, unspecified
CPT/HCPCS: 72040; 72072; 72100

== ENCOUNTER → 2020-07-31 13:08 | Outpatient (CLI) | payer MEDICARE, OTHER, SELFPAY ==
--- NOTE | 2020-07-31 | DI.RAD.S_ITS ---
PROCEDURE: XR ANKLE RT MIN 3V INDICATIONS: ACUTE RIGHT ANKLE PAIN TECHNIQUE: 3 views of the ankle were acquired. COMPARISON: [facility], , ANKLE 3 VIEWS LEFT, 09/28/2008, 17:24. FINDINGS: Bones: No acute fracture identified. Scattered degenerative subchondral sclerosis and spurring. Large plantar calcaneal spur is seen. There is diffuse midfoot and hindfoot osteoarthritis Soft tissues: Lateral soft tissue swelling. IMPRESSION: Chronic degenerative changes as above . If the patient's pain or other symptoms persist, consider further evaluation with MRI Dictated by: Wilfredo Cummings M.D. on 07/31/2020 at 15:47 Approved by: Wilfredo Cummings M.D. on 07/31/2020 at 15:49
== END ==
PROVIDERS: PCP Physician Assistant; Referring Provider Internal Medicine; Visit Provider Internal Medicine
DX: M25.571 Pain in right ankle and joints of right foot (principal); M79.89 Other specified soft tissue disorders; M19.071 Primary osteoarthritis, right ankle and foot; M77.31 Calcaneal spur, right foot
CPT/HCPCS: 73610

== ENCOUNTER → 2020-09-23 12:08 | Outpatient (CLI) | payer MEDICARE, OTHER, SELFPAY ==
[2020-09-23 13:58] LABS: Alanine Aminotransferase 22 IU/L (<35); Albumin 4.2 g/dL (3.5-5.0); Albumin Globulin Ratio 1.4 (1.0-2.8); Alkaline Phosphatase 78 U/L (38-126); Aspartate Aminotransferase 36 IU/L (14-36); BUN Creatinine Ratio 20.7 (6-22); Bilirubin Total 0.4 mg/dL (0.2-1.3); Blood Urea Nitrogen 17 mg/dL (7-17); Calcium 9.7 mg/dL (8.4-10.2); Carbon Dioxide 29 mmol/L (22-32); Chloride 106 mmol/L (98-107); Cholesterol 173 mg/dL (140-199); Estimated Glomerular Filt Rate > 60.0 mL/min (>60); Glucose 88 mg/dL (80-110); HDL Cholesterol 86 mg/dL (40-60); HEMOLYSIS < 15 (0-50); LDL Cholesterol Calculated 70 mg/dL (<100); Potassium 4.6 mmol/L (3.4-5.1); Sodium 139 mmol/L (137-145); Total Protein 7.2 g/dL (6.3-8.2); Triglycerides 84 mg/dL (35-150)
== END ==
PROVIDERS: PCP Physician Assistant; Referring Provider Internal Medicine Cardiovascular Disease; Visit Provider Internal Medicine Cardiovascular Disease
DX: I28.8 Other diseases of pulmonary vessels (principal); E78.5 Hyperlipidemia, unspecified
CPT/HCPCS: 36415; 80053; 80061

== ENCOUNTER → 2020-10-17 14:41 | Outpatient (CLI) | payer MEDICARE, OTHER, SELFPAY ==
--- NOTE | 2020-10-17 | DI.ECHO.S_ITS ---
[place] [facility]---------+ [facility] +---------+ : : [address] : : : : [id number] : : : : Phone: [phone]+ Echocardiogram Report + + :Name: JAY JAY CRESPO Study Date: 10/17/2020 Height: 65 in : :[facility] : Weight: 176 lb : : Gender: Female BSA: 1.9 m2 : :: 1940 Age: 80 yrs BP: 175/106 mmHg: :Reason For Study: PULMONARY VESSELS : :Ordering Physician: Xiomara : :Perry Hernandez Performed By: Michele Cuenca : :Referring: XIOMARA HERNANDEZ : + + Interpretation Summary The left ventricle is normal in size and wall thickness. The ejection fraction is estimated to be 60-65%. There has been no significant change in LV EF since the previous exam. The right ventricle is normal in size and function. There is mild tricuspid regurgitation. Compared to the prior echo exam, there has been no change in TR severity. The right ventricular systolic pressure is estimated to be at least 27 mmHg based on an estimated right atrial pressure of 3 mm Hg. The ascending aorta is mildly enlarged. This is unchanged compared to the previous study. Main pulmonary artery measures 2.7 cm. In May 2017 it was 4.3 cm in diameter. Procedure: A two-dimensional transthoracic echocardiogram with color flow and Doppler was performed. The study quality was technically adequate. Comparison is made with the echocardiogram of 05/13/2017. The patient was in normal sinus rhythm during the exam. Left Ventricle: The left ventricle is normal in size and wall thickness. There is no thrombus. Left ventricular systolic function is normal. The ejection fraction is estimated to be 60-65%. There has been no significant change since the previous exam. There are no focal wall motion abnormalities. MV E/A: 0.85 Med Peak E' Sergey: 2.8 cm/sec E/E' med: 33.8. Right Ventricle: The right ventricle is normal in size and function. Atria: Both atria are normal in size. The left atrium has remained unchanged in size since the prior echo exam. There is no Doppler evidence for an interatrial shunt. Mitral Valve: The mitral valve is normal in structure and function. There is trace mitral regurgitation. Aortic Valve: The aortic valve is normal in structure and function. The aortic valve is trileaflet. There is no aortic valve stenosis. There is trace aortic regurgitation. Tricuspid Valve: The tricuspid valve is normal. There is mild tricuspid regurgitation. The right ventricular systolic pressure is estimated to be at least 27 mmHg based on an estimated right atrial pressure of 3 mm Hg. Compared to the prior echo exam, there has been no change in TR severity. Pulmonic Valve: The pulmonic valve is not well seen, but is grossly normal. Main pulmonary artery measures 2.7 cm. There is trace pulmonic regurgitation. Great Vessels: The aortic root is normal size. The ascending aorta is mildly enlarged. This is unchanged compared to the previous study. The IVC is of normal diameter and collapses greater than 50% with a sniff. This suggests a low right atrial pressure of 3 mm Hg. Pericardium/ Pleura There is no pericardial effusion. There is no pleural effusion. MMode/2D Measurements & Calculations LVIDd: 4.7 cm LVOT diam: 1.9 cm LVIDs: 3.1 cm Ao root diam: 3.2 cm FS: 33.1 % asc Aorta Diam: 3.8 cm IVSd: 0.85 cm LVPWd: 0.93 cm LV rey. diameter/BSA (cm/m^2): 2.5 LV sys. diameter/BSA (cm/m^2): 1.7 LA A2 area: 18.8 cm2 RA long axis: 4.0 cm LA A4 area: 13.9 cm2 RA area: 10.1 cm2 LA length (vol): 4.5 cm RA vol: 21.6 ml LA vol: 49.6 ml RA : 11.5 ml/m2 LA vol index: 26.5 ml/m2 TAPSE: 2.5 cm Doppler Measurements & Calculations Ao V2 max: 116.3 cm/sec LVOT Max Sergey: 126.1 cm/sec Ao V2 mean: 78.2 cm/sec LV V1 max P.4 mmHg Ao max P.4 mmHg LV V1 VTI: 25.1 cm Ao mean P.7 mmHg HIMA(I,D): 3.2 cm2 Ao V2 VTI: 23.4 cm HIMA(V,D): 3.2 cm2 sev ratio: 1.1 HIMA indexed to BSA (cm^2/m^2): 1.7 MV E max sergey: 93.4 cm/sec TR max sergey: 243.5 cm/sec MV A max sergey: 109.7 cm/sec TR max P.7 mmHg MV E/A: 0.85 PA pr(Accel): 55.9 mmHg Med Peak E' Sergey: 2.8 cm/sec E/E' med: 33.8 Lat Peak E' Sergey: 6.0 cm/sec E/E' lat: 15.6 E/e' average: 24.7 MV dec time: 0.19 sec SV(LVOT): 74.6 ml Reading Physician:10:53 AM
== END ==
PROVIDERS: PCP Physician Assistant; Referring Provider Internal Medicine Cardiovascular Disease; Visit Provider Internal Medicine Cardiovascular Disease
DX: I07.1 Rheumatic tricuspid insufficiency (principal); I77.89 Other specified disorders of arteries and arterioles; I28.8 Other diseases of pulmonary vessels
CPT/HCPCS: 93306

== ENCOUNTER 2020-10-29 19:32 | Emergency (ER) | payer MEDICARE, OTHER, SELFPAY ==
[2020-10-29 19:35] VITALS: BP 153/80; PULSE 73; RESP 18; TEMP 36.5; O2SAT 98
[2020-10-30 00:12] VITALS: BP 174/97; PULSE 63; RESP 20; O2SAT 99
--- NOTE | 2020-10-30 04:38 | ED_ITS ---
HPI - Fall General Chief Complaint: Fall Stated Complaint: FELL AND HIT HEAD Time Seen by Provider: 10/29/20 23:59 Source: patient and family Mode of arrival: Ambulatory History of Present Illness HPI Narrative: Woman with a history of occasional vertigo with worsening balance difficulties was in her yd this evening lost her balance fell over backwards and hit her head. She is not on blood thinners. There was no loss of consciousness no obvious trauma, bleeding, pain. She does come in for further evaluation. She reports no chest pain, dyspnea, palpitation, headache, neck pain or other musculoskeletal pain. Related Data Home Medications Medication Instructions Recorded Confirmed alprazolam 0.25 mg tablet 0.25 mg PO BEDTIME PRN #0 09/28/08 03/27/19 citalopram 20 mg tablet 20 mg PO DAILY #0 09/28/08 03/27/19 diltiazem HCl 120 mg 120 mg PO DAILY #0 06/30/16 03/27/19 capsule,extended release 24 hr aspirin 81 mg tablet,delayed 81 mg PO DAILY 03/27/19 03/27/19 release calcium carbonate 600 mg(1,500 1 tab PO DAILY 03/27/19 03/27/19 mg)-vitamin D3 800 unit chewable tablet (Caltrate 600 plus D) chlorthalidone 25 mg tablet 25 mg PO DAILY 03/27/19 03/27/19 cholecalciferol (vitamin D3) 50 2,000 unit PO DAILY 03/27/19 03/27/19 mcg (2,000 unit) tablet (Vitamin D3) cyanocobalamin (vitamin B-12) 1,000 mcg PO DAILY 03/27/19 03/27/19 1,000 mcg tablet (Vitamin B-12) irbesartan 300 mg tablet 300 mg PO DAILY 03/27/19 03/27/19 levothyroxine 50 mcg tablet 50 mcg PO DAILY 03/27/19 03/27/19 xjclyuwl-ihd-vacrb acid 0.4 1 tab PO DAILY 03/27/19 03/27/19 mg-lycopene 300 mcg-lutein 250 mcg tablet (Centrum Silver) nitroglycerin 0.4 mg sublingual 0.4 mg SUBLINGUAL PRN PRN 03/27/19 03/27/19 tablet (Nitrostat) ondansetron 4 mg disintegrating 4 mg TRANSLINGUAL DAILY 03/27/19 03/27/19 tablet Allergies Allergy/AdvReac Type Severity Reaction Status Date / Time Sulfa (Sulfonamide Allergy Severe rash Verified 12/14/17 14:10 Antibiotics) [SULFA (SULFONAMIDE ANTIBIOTICS)] lisinopril [LISINOPRIL] Allergy Intermediate Cough Verified 12/14/17 14:10 Review of Systems Review of Systems Narrative: Remainder of complete review of systems is otherwise unremarkable e xcept for that included in the HPI. Patient History Medical History (Updated 10/30/20 @ 04:53 by Sherley Valeor MD) Vertigo Social History Smoking Status: Never smoker Smoking Status: Never smoker Substance Use Type: does not use Exam Narrative Exam Narrative: General: Healthy appearing, in no acute distress. Able to give a complete and coherent history. Well-nourished well-developed HEENT: Atraumatic, normocephalic Moist mucous membranes, normal sclera with reactive pupils, Neck: No midline cervical spine tenderness and no paraspinous or trapezius muscle spasm Respiratory: Lungs are clear to auscultation, no wheezing no rales no rhonchi. Full and symmetrical air movement Cardiac: Regular rate and rhythm no murmurs no bruits Abdomen: Soft, nontender, good bowel tones, no flank pain Skin: Warm and dry, no rashes Neurologic: Grossly neurologically intact with no obvious asymmetries or abnormalities Extremities: No trauma, well perfused Psych: Cooperative, appropriate insight and affect Initial Vital Signs Initial Vital Signs: Vital Signs Temperature 97.7 F 10/29/20 19:35 Pulse Rate 73 10/29/20 19:35 Respiratory Rate 18 10/29/20 19:35 Blood Pressure 153/80 H 10/29/20 19:35 Pulse Oximetry 98 10/29/20 19:35 Course Vital Signs Vital signs: Vital Signs - 8 hr 10/30/20 00:12 Pulse Rate 63 Respiratory Rate 20 Blood Pressure 174/97 H Pulse Oximetry 99 MDM - Fall MDM Narrative Medical decision making narrative: 80-year-old woman with a history of intermittent vertigo and balance difficulties slightly off balance stumbled fell backward landing on soft grass with no immediate injury or trauma appreciated. She has no abrasions contusions or musculoskeletal complaints at this time. There is no indication for head CT. Physical exa is reassuring. Findings reviewed with patient and she is safe for home discharge Discharge Plan Departure Patient Disposition: Home Clinical Impression: Dizziness Fall Qualifiers: Encounter type: initial encounter Qualified Code(s): W19.XXXA - Unspecified fall, initial encounter Instructions: DI for Dizziness-Nonvertigo Activity Restrictions/Additional Instructions: Thank you for coming in today I am sorry that you are experiencing some dizziness however it does not sound like it is significant enough that taking medications that can have additional side effects are warranted at this time. I am not seeing any signs of life-threatening diagnoses After your fall I am not seeing any evidence of a severe head injury and at this time, there is no need to do any imaging of your head. I would not be surprised if you do have some minor aches and pains that you notice over the next 24 hours after this small fall. If your having continued issues with dizziness or vertigo, please discuss this with your primary care provider at your previously scheduled appointment on Prescriptions: No Action alprazolam 0.25 mg Tablet 0.25 mg PO BEDTIME PRN (Reason: Anxiety) Qty: 0 RF: 0 citalopram 20 mg Tablet 20 mg PO DAILY Qty: 0 RF: 0 diltiazem HCl 120 MG capsule,extended release 24hr 120 mg PO DAILY Qty: 0 RF: 0 chlorthalidone 25 mg tablet 25 mg PO DAILY RF: 0 aspirin 81 mg Tablet,Delayed Release (Dr/Ec) 81 mg PO DAILY RF: 0 levothyroxine 50 mcg tablet 50 mcg PO DAILY RF: 0 irbesartan 300 mg tablet 300 mg PO DAILY RF: 0 nitroglycerin [Nitrostat] 0.4 mg Tablet, Sublingual 0.4 mg sublingual PRN PRN (Reason: Chest Pain) RF: 0 ondansetron 4 mg tablet,disintegrating 4 mg translingual DAILY RF: 0 Centrum Silver 0.4-300-250 mg-mcg-mcg Tablet 1 tab PO DAILY RF: 0 cyanocobalamin (vitamin B-12) [Vitamin B-12] 1,000 mcg Tablet 1,000 mcg PO DAILY RF: 0 cholecalciferol (vitamin D3) [Vitamin D3] 2,000 unit Tablet 2,000 unit PO DAILY RF: 0 Caltrate 600 plus D 600 mg (1,500 mg)-800 unit Tablet,Chewable 1 tab PO DAILY RF: 0 Referrals: Desch,Nereyda, PA-C [Primary Care Provider] -
== END 2020-10-30 00:13 | disposition home or self-care (01) ==
PROVIDERS: Emergency Provider Emergency Medicine; PCP Physician Assistant
DX: R42 Dizziness and giddiness (principal); W19.XXXA Unspecified fall, initial encounter
CPT/HCPCS: 99281

== ENCOUNTER → 2020-11-02 12:46 | Outpatient (CLI) | payer MEDICARE, OTHER, SELFPAY ==
--- NOTE | 2020-11-02 12:48 | DI.MG.S_ITS ---
BILATERAL DIGITAL SCREENING MAMMOGRAM 3D/2D WITH CAD: 11/02/2020 CLINICAL: Routine screening. Personal history of left breast cancer. Family history of breast cancer. Comparison is made to exams dated: 10/20/2019 mammogram, 09/21/2018 mammogram, and 09/20/2017 mammogram - [facility]. There are scattered fibroglandular elements in both breasts. Current study was also evaluated with a Computer Aided Detection (CAD) system. The left breast has post-operative findings. There are grouped heterogeneous calcifications in the left breast at 12 o'clock anterior depth. These are more prominent and increased in number and correlates with surgery. There is a post-surgical scar associated with the calcifications. No other significant masses, calcifications, or other findings are seen in either breast. IMPRESSION: INCOMPLETE: NEEDS ADDITIONAL IMAGING EVALUATION The grouped heterogeneous calcifications in the left breast likely represent sequela of previous surgery and are indeterminate. Diagnostic mammogram for additional views to include mediolateral and spot magnification views is recommended as well as possible ultrasound. This exam was interpreted at Station ID: [id number]. NOTE: For mammograms, a report in lay terms will be sent to the patient. Approximately 15% of breast malignancies will not be visualized mammographically. In the management of a palpable breast mass, a negative mammogram must not discourage biopsy of a clinically suspicious lesion. Electronically Signed By: Wilber Luu M.D. aty/:11/03/2020 21:59:06 letter sent: Additional Imaging Needed ACR BI-RADS Category 0: Incomplete 3340F
== END ==
PROVIDERS: PCP Physician Assistant; Referring Provider Physician Assistant; Visit Provider Physician Assistant
DX: Z12.31 Encounter for screening mammogram for malignant neoplasm of breast (principal); Z85.3 Personal history of malignant neoplasm of breast; Z80.3 Family history of malignant neoplasm of breast
CPT/HCPCS: 77063; 77067

== ENCOUNTER → 2020-11-25 11:52 | Outpatient (CLI) | payer MEDICARE, OTHER, SELFPAY ==
--- NOTE | 2020-11-25 11:55 | DI.MG.S_ITS ---
UNILATERAL LEFT DIGITAL DIAGNOSTIC MAMMOGRAM 3D/2D WITH ADDITIONAL VIEWS: 11/25/2020 CLINICAL: Additional evaluation requested from prior study. Comparison is made to exams dated: 10/20/2019 mammogram, 11/02/2020 mammogram, 09/21/2018 mammogram, 09/20/2017 mammogram, 09/11/2016 mammogram, and 10/07/2009 mammogram - [facility]. There are scattered fibroglandular elements in left breast. The left breast has post-operative findings. There are grouped heterogeneous calcifications in the left breast at 12 o'clock anterior depth. This correlates with surgery. There is a post-surgical scar associated with the calcifications. No other significant masses or calcifications are seen in the breast. IMPRESSION: PROBABLY BENIGN The grouped heterogeneous calcifications in the left breast likely represent fat necrosis from previous surgery and are probably benign. A follow-up mammogram in 6 months is recommended to closely follow and demonstrate stability. This exam was interpreted at Station ID: [id number]. NOTE: For mammograms, a report in lay terms will be sent to the patient. Approximately 15% of breast malignancies will not be visualized mammographically. In the management of a palpable breast mass, a negative mammogram must not discourage biopsy of a clinically suspicious lesion. Electronically Signed By: Partha Gonzales acr/:11/25/2020 12:37:25 letter sent: Followup Recommended ACR BI-RADS Category 3: Probably benign 3343F
== END ==
PROVIDERS: PCP Physician Assistant; Referring Provider Physician Assistant; Visit Provider Physician Assistant
DX: R92.8 Other abnormal and inconclusive findings on diagnostic imaging of breast (principal); R92.1 Mammographic calcification found on diagnostic imaging of breast
CPT/HCPCS: 77065; G0279

== ENCOUNTER → 2021-01-14 15:12 | Outpatient (CLI) | payer MEDICARE, OTHER, SELFPAY ==
[2021-01-14 17:11] LABS: Add Manual Diff / Slide Review NO; Basophils Absolute Auto 0 /uL (0-100); Basophils Percent Auto 0.7 % (0-2); Eosinophils Absolute Auto 100 /uL (0-450); Hematocrit 36.4 % (36-46); Hemoglobin 11.8 g/dL (12.0-16.0); Lymphocytes Absolute Auto 1900 /uL (1100-4500); Lymphocytes Percent Auto 34.4 % (25-40); Mean Corpuscular HGB Conc 32.4 % (30-36); Mean Corpuscular Hemoglobin 28.4 PG (26-34); Mean Corpuscular Volume 87.6 fL (80-100); Monocytes Absolute Auto 400 /uL (0-900); Monocytes Percent Auto 7.3 % (3-14); Neutrophils Absolute Auto 3200 /uL (1500-7000); Neutrophils Percent Auto 56.6 % (50-75); Platelet Count 280 X10^3/uL (150-400); Red Blood Cell Count 4.16 X10^6/uL (4.0-5.2); Red Cell Distribution Width 16.1 % (11.6-14.8); White Blood Cell Count 5.6 X10^3/uL (4.5-11.0)
[2021-01-14 17:32] LABS: Carbon Dioxide 30 mmol/L (22-32); Chloride 104 mmol/L (98-107); HEMOLYSIS < 15 (0-50); Potassium 4.8 mmol/L (3.4-5.1); Sodium 139 mmol/L (137-145)
== END ==
PROVIDERS: PCP Physician Assistant; Referring Provider Orthopaedic Surgery; Visit Provider Orthopaedic Surgery
DX: Z01.812 Encounter for preprocedural laboratory examination (principal); Z01.818 Encounter for other preprocedural examination
CPT/HCPCS: 36415; 80051; 85025

== ENCOUNTER → 2021-05-26 11:59 | Outpatient (CLI) | payer MEDICARE, OTHER, SELFPAY ==
--- NOTE | 2021-05-26 | DI.MG.S_ITS ---
UNILATERAL LEFT DIGITAL DIAGNOSTIC MAMMOGRAM 3D/2D SHORT-TERM FOLLOW-UP POST LUMPECTOMY: 05/26/2021 CLINICAL: Short term follow up for the left breast. Comparison is made to exams dated: 11/25/2020 mammogram, 11/02/2020 mammogram, 10/20/2019 mammogram, and 09/21/2018 mammogram - [facility]. There are scattered fibroglandular elements in left breast. There are grouped coarse dystrophic calcifications in the left breast at 12 o'clock middle depth. These are increased in number of calcifications. No other significant masses or calcifications are seen in the breast. IMPRESSION: BENIGN The grouped coarse dystrophic calcifications in the left breast likely represent fat necrosis and are benign. There is no mammographic evidence of malignancy. Return to annual mammogram screening schedule is recommended. This exam was interpreted at Station ID: [id number]. NOTE: For mammograms, a report in lay terms will be sent to the patient. Approximately 15% of breast malignancies will not be visualized mammographically. In the management of a palpable breast mass, a negative mammogram must not discourage biopsy of a clinically suspicious lesion. Electronically Signed By: Dakota stevens/huber:05/26/2021 12:32:59 letter sent: Normal Exam ACR BI-RADS Category 2: Benign Finding(s) 3342F
== END ==
PROVIDERS: PCP Physician Assistant; Referring Provider Physician Assistant; Visit Provider Physician Assistant
DX: R92.1 Mammographic calcification found on diagnostic imaging of breast
CPT/HCPCS: 77065; G0279

== ENCOUNTER → 2021-11-04 11:14 | Outpatient (CLI) | payer MEDICARE, OTHER, SELFPAY ==
--- NOTE | 2021-11-04 | DI.RAD.S_ITS ---
PROCEDURE: XR KNEE LT 3V INDICATIONS: CHRONIC LEFT KNEE PAIN TECHNIQUE: 3 views of the knee were acquired. COMPARISON: [facility], CR, XR KNEE 4+ VIEWS LEFT, 04/28/2021, 11:01. [facility], CR, XR KNEE RT 1TO2V, 07/01/2020, 11:08. [facility], CR, KNEE 3V RIGHT, 05/05/2010, 10:35. FINDINGS: Bones: No fractures or dislocations. No suspicious bony lesions. Prior medial compartment arthroplasty. There is lucency adjacent to the tibial component. Degenerative changes of the patellofemoral compartment demonstrated. Medial compartment narrowing demonstrated of the imaged right knee. Soft tissues: No joint effusion. No suspicious soft tissue calcifications. IMPRESSION: 1. No acute fracture visualized. 2. Prior medial compartment arthroplasty. Lucency is present adjacent to the tibial component which could indicate loosening or infection. Dictated by: Perez Estes M.D. on 11/04/2021 at 21:59 Approved by: Perez Estes M.D. on 11/04/2021 at 22:08
== END ==
PROVIDERS: PCP Physician Assistant; Referring Provider Physician Assistant; Visit Provider Physician Assistant
DX: M25.562 Pain in left knee (principal); G89.29 Other chronic pain; Z96.652 Presence of left artificial knee joint
CPT/HCPCS: 73562

== ENCOUNTER 2021-11-05 19:10 | Observation (INO) | payer MEDICARE, OTHER, SELFPAY ==
[2021-11-05 19:16] VITALS: BP 181/88; PULSE 75; RESP 16; TEMP 36.1; O2SAT 97; BMI 28.6
--- NOTE | 2021-11-05 19:20 | DI.RAD.S_ITS ---
PROCEDURE: XR CHEST 1V INDICATIONS: chest pain TECHNIQUE: One view of the chest was acquired. COMPARISON: [facility], , CHEST 2 VIEW, 12/12/2014, 10:09. FINDINGS: Surgical changes and devices: Surgical clips project over the right upper abdomen and left chest/breast. Lungs and pleura: Lungs are clear. No pleural effusions or pneumothorax. Mediastinum: Mediastinal contours appear normal. Heart size is normal. Bones and chest wall: No suspicious bony lesions. Overlying soft tissues appear unremarkable. IMPRESSION: Stable radiographic evaluation of the chest without acute cardiopulmonary abnormalities or focal airspace disease. Dictated by: Wilber Luu M.D. on 11/05/2021 at 20:31 Approved by: Wilber Luu M.D. on 11/05/2021 at 20:32
[2021-11-05 19:55] LABS: Add Manual Diff / Slide Review NO; Basophils Absolute Auto 0 /uL (0-100); Basophils Percent Auto 0.8 % (0-2); Eosinophils Absolute Auto 100 /uL (0-450); Eosinophils Percent Auto 1.1 % (2-4); Hemoglobin 13.3 g/dL (12.0-16.0); Lymphocytes Absolute Auto 1800 /uL (1100-4500); Lymphocytes Percent Auto 30.8 % (25-40); Mean Corpuscular HGB Conc 34.1 % (30-36); Mean Corpuscular Hemoglobin 29.7 PG (26-34); Mean Corpuscular Volume 87.2 fL (80-100); Monocytes Absolute Auto 500 /uL (0-900); Monocytes Percent Auto 7.8 % (3-14); Neutrophils Absolute Auto 3400 /uL (1500-7000); Neutrophils Percent Auto 59.5 % (50-75); Platelet Count 281 X10^3/uL (150-400); Red Blood Cell Count 4.47 X10^6/uL (4.0-5.2); White Blood Cell Count 5.8 X10^3/uL (4.5-11.0)
[2021-11-05 20:15] LABS: Alanine Aminotransferase 19 IU/L (<35); Albumin 4.3 g/dL (3.5-5.0); Albumin Globulin Ratio 1.4 (1.0-2.8); Alkaline Phosphatase 97 U/L (38-126); Aspartate Aminotransferase 26 IU/L (14-36); BUN Creatinine Ratio 18.3 (6-22); Bilirubin Total 0.5 mg/dL (0.2-1.3); Blood Urea Nitrogen 17 mg/dL (7-17); Calcium 9.4 mg/dL (8.4-10.2); Carbon Dioxide 26 mmol/L (22-32); Chloride 103 mmol/L (98-107); Creatine Kinase 108 U/L (30-135); Estimated Glomerular Filt Rate > 60 mL/min (>60); Glucose 103 mg/dL (80-110); Lipase 72 U/L (23-300); Magnesium 2.1 mg/dL (1.6-2.3); Potassium 4.2 mmol/L (3.4-5.1); Sodium 135 mmol/L (137-145); Total Protein 7.3 g/dL (6.3-8.2)
[2021-11-05 20:26] LABS: Troponin I < 0.012 ng/mL (0.01-0.034)
[2021-11-05 20:29] LABS: CKMB % Relative Index 0.9 % (1.5-5.0); Creatine Kinase MB 0.96 ng/mL (<2.37); HEMOLYSIS 18 (0-50)
[2021-11-05 21:46] VITALS: BP 163/90; PULSE 60; RESP 16; O2SAT 97
--- NOTE | 2021-11-05 22:03 | ED_ITS ---
HPI - Chest Pain General Chief Complaint: Chest Pain Stated Complaint: Nausea, Headache, Left arm numbness Time Seen by Provider: 11/05/21 20:38 Source: patient Mode of arrival: Family Vehicle History of Present Illness HPI narrative: Patient here for nonreproducible left-sided chest pain that went to her neck and arm with tingling to the arm that started this morning and lasted about 6 hours. Was nauseous and sweaty with it. No dyspnea. Patient has had this off and on for at least couple of months. However, she did see her oak tanner last week for routine annual checkup Dr Peoples, and is scheduled for stress test next month. She did see her family doctor yesterday. Her blood pressure was normal at 120 systolic. It is elevated tonight. Patient denies any chest pain at this time. No complaints. Related Data Home Medications Medication Instructions Recorded Confirmed alprazolam 0.25 mg tablet 0.25 mg PO BEDTIME PRN Anxiety ##0 09/28/08 03/27/19 citalopram 20 mg tablet 20 mg PO DAILY ##0 09/28/08 03/27/19 diltiazem HCl 120 mg 120 mg PO DAILY ##0 06/30/16 03/27/19 capsule,extended release 24 hr aspirin 81 mg tablet,delayed 81 mg PO DAILY 03/27/19 03/27/19 release calcium carbonate 600 mg-vitamin 1 tab PO DAILY 03/27/19 03/27/19 D3 20 mcg (800 unit) chewable tablet (Caltrate 600 plus D) chlorthalidone 25 mg tablet 25 mg PO DAILY 03/27/19 03/27/19 cholecalciferol (vitamin D3) 50 2,000 unit PO DAILY 03/27/19 03/27/19 mcg (2,000 unit) tablet (Vitamin D3) cyanocobalamin (vitamin B-12) 1,000 mcg PO DAILY 03/27/19 03/27/19 1,000 mcg tablet (Vitamin B-12) irbesartan 300 mg tablet 300 mg PO DAILY 03/27/19 03/27/19 levothyroxine 50 mcg tablet 50 mcg PO DAILY 03/27/19 03/27/19 [id number]-ofl-xdtfg acid 0.4 1 tab PO DAILY 03/27/19 03/27/19 mg-lycopene 300 mcg-lutein 250 mcg tablet (Centrum Silver) nitroglycerin 0.4 mg sublingual 0.4 mg sublingual PRN PRN Chest 03/27/19 03/27/19 tablet (Nitrostat) Pain ondansetron 4 mg disintegrating 4 mg translingual DAILY 03/27/19 03/27/19 tablet Allergies Allergy/AdvReac Type Severity Reaction Status Date / Time Sulfa (Sulfonamide Allergy Severe rash Verified 11/05/21 19:20 Antibiotics) [SULFA (SULFONAMIDE ANTIBIOTICS)] lisinopril [LISINOPRIL] Allergy Intermediate Cough Verified 11/05/21 19:20 Review of Systems Review of Systems Narrative: GENERAL: Denies chills, fatigue, malaise, fever, positive sweats. HEENT: Denies sinus pain, ear pain, sore throat RESPIRATORY: Denies dyspnea, cough CARDIOVASCULAR: Positive for chest pain, negative for palpitations GASTROINTESTINAL: Positive for nausea, negative vomiting, abdominal pain : Denies dysuria, frequency, hematuria MUSCULOSKELETAL: denies muscle or bony pain SKIN: Denies rash, skin lesions NEUROLOGIC: Denies weakness, numbness ROS Unobtainable: All systems reviewed & are unremarkable except as noted in HPI and below Patient History Medical History Vertigo Social History Smoking Status: Never smoker Smoking Status: Never smoker Substance Use Type: does not use Exam Narrative Exam Narrative: GENERAL: in no distress, not toxic not dyspneic HEAD: Normocephalic. EYES: Pupils equal round No scleral icterus. ENT: Mucous membranes moist. NECK: Trachea midline. CARDIOVASCULAR: Regular rate and rhythm without murmurs RESPIRATORY: Clear to auscultation. Breath sounds equal bilaterally. No wheezes, rales, or rhonchi. GASTROINTESTINAL: Abdomen soft, non-tender EXTREMITIES: No gross deformities. BACK: No flank tenderness. NEURO: AOx4. SKIN: Warm and dry PSYCH: Not anxious, is cooperative Initial Vital Signs Initial Vital Signs: Vital Signs Temperature 97 F L 11/05/21 19:16 Pulse Rate 75 11/05/21 19:16 Respiratory Rate 16 11/05/21 19:16 Blood Pressure 181/88 H 11/05/21 19:16 Pulse Oximetry 97 11/05/21 19:16 Oxygen Delivery Method 11/05/21 19:16 Course Course Course Narrative: No new issues during course of stay Decision to Admit Date: 11/05/21 Decision to Admit time: 22:08 Orders Ordered: ED Orders 11/05/21 19:20 XR chest 1V Stat EKG-12 Lead Stat 11/05/21 19:35 Complete Blood Count AUTO DIFF Stat Comprehensive Metabolic Panel Stat Lipase Stat Magnesium Stat Troponin & CK Cardiac Panel Stat 11/06/21 05:00 Basic Metabolic Panel Routine Complete Blood Count AUTO DIFF Routine Troponin I Routine Acetaminophen (Acetaminophen 325 Mg Tablet) 650 mg PO Q6HR PRN PRN Reason: Fever/Mild Pain (1-3) Aspirin (Aspirin Ec 81 Mg Tablet) 81 mg PO DAILY RONAL Atorvastatin Calcium (Atorvastatin 20 Mg Tablet) 40 mg PO BEDTIME RONAL Heparin Sodium (Porcine) (Heparin 5,000 Unit/Ml Vial) 5,000 unit SUBCUT BID RONAL Ondansetron HCl (Ondansetron 4 Mg/2 Ml Inj) 4 mg IV Q8HR PRN PRN Reason: Nausea And Vomiting Reevaluation(s) Reevaluation #1: Spoke with patient results. Will likely need admit. She understands Time: 22:08 Consultations Consultation #1: Spoke with Cardiology, recommends admit for stress test and echocardiogram in the morning. dr peoples Time: 22:08 Consultation #2: Spoke with hospitalist, will admit dr valentino Time: 22:17 Vital Signs Vital signs: Vital Signs - 8 hr 11/05/21 19:16 11/05/21 21:46 Temperature 97 F L Pulse Rate 75 60 Respiratory Rate 16 16 Blood Pressure 181/88 H 163/90 H Pulse Oximetry 97 97 Oxygen Delivery Method Room Air Room Air MDM - Chest Pain Differential Diagnosis Differential diagnosis: Likely stable angina, unstable angina pectoris, atypical chest pain, st elevation myocardial infarction and chest pain Lab Data Result diagrams: 11/05/21 19:35 11/05/21 19:35 Labs: Lab Results 11/05/21 11/05/21 Range/Units 19:35 19:35 WBC 5.8 (4.5-11.0) X10^3/uL RBC 4.47 (4.0-5.2) X10^6/uL Hgb 13.3 (12.0-16.0) g/dL Hct 39.0 (36-46) % MCV 87.2 (80-100) fL MCH 29.7 (26-34) PG MCHC 34.1 (30-36) % RDW 16.0 H (11.6-14.8) % Plt Count 281 (150-400) X10^3/uL Neut % (Auto) 59.5 (50-75) % Lymph % (Auto) 30.8 (25-40) % [place] % (Auto) 7.8 (3-14) % Eos % (Auto) 1.1 L (2-4) % Baso % (Auto) 0.8 (0-2) % Neut # (Auto) 3400 (1990-1977) /uL Lymph # (Auto) 1800 (1984-0331) /uL [place] # (Auto) 500 (0-900) /uL Eos # (Auto) 100 (0-450) /uL Baso # (Auto) 0 (0-100) /uL Sodium 135 L (137-145) mmol/L Potassium 4.2 (3.4-5.1) mmol/L Chloride 103 (98-107) mmol/L Carbon Dioxide 26 (22-32) mmol/L BUN 17 (7-17) mg/dL Creatinine 0.93 (0.52-1.04) mg/dL Estimated GFR > 60 (>60) mL/min BUN/Creatinine Ratio 18.3 (6-22) Glucose 103 (80-110) mg/dL Calcium 9.4 (8.4-10.2) mg/dL Magnesium 2.1 (1.6-2.3) mg/dL Total Bilirubin 0.5 (0.2-1.3) mg/dL AST 26 (14-36) IU/L ALT 19 (<35) IU/L Alkaline Phosphatase 97 (38-126) U/L Total Creatine Kinase 108 (30-135) U/L CK-MB (CK-2) 0.96 (<2.37) ng/mL CK-MB (CK-2) Rel Index 0.9 L (1.5-5.0) % Troponin I < 0.012 (0.01-0.034) ng/mL Total Protein 7.3 (6.3-8.2) g/dL Albumin 4.3 (3.5-5.0) g/dL Globulin 3.0 (1.7-4.1) g/dL Albumin/Globulin Ratio 1.4 (1.0-2.8) Lipase 72 (23-300) U/L Imaging Data Chest x-ray: Radiologist's Impression: [address] [address] XRay Report Signed Patient: Dia Tran MR#: [id number] : 1940 Acct:[id number] Age/Sex: 81 / F Date of Service: 11/05/21 Loc: ED Accession Number: [id number] ?? Procedure: XR chest 1V Ordering Provider: Bora Ochoa MD PROCEDURE:? XR CHEST 1V ? INDICATIONS:? chest pain ? TECHNIQUE:? One view of the chest was acquired.? ? COMPARISON:? [facility], , CHEST 2 VIEW, 12/12/2014, 10:09. ? FINDINGS:? ? Surgical changes and devices:? Surgical clips project over the right upper abdomen and left chest/breast. ? Lungs and pleura:? Lungs are clear.? No pleural effusions or pneumothorax.? ? Mediastinum:? Mediastinal contours appear normal.? Heart size is normal.? ? Bones and chest wall:? No suspicious bony lesions.? Overlying soft tissues appear unremarkable.? ? IMPRESSION:? Stable radiographic evaluation of the chest without acute cardiopulmonary abnormalities or focal airspace disease. ? Dictated by: Wilber Luu M.D. on 11/05/2021 at 20:31 ? ? Approved by: Wilber Luu M.D. on 11/05/2021 at 20:32 ? ECG Data Interpretation: Sinus rhythm rate [address] elevation or depression MDM Narrative Medical decision making narrative: Appropriate for admission. I spoke with patient and patient's oak tanner as well as hospitalist. Agree for urgent admit for stress test. Symptoms concerning for unstable angina/angina. Discharge Plan Departure Patient Disposition: Admitted as Observation Clinical Impression: Chest pain Admit Date/Time: 11/05/21 22:16 Admit Provider: Kenyon Valentino
--- NOTE | 2021-11-05 23:23 | P.HP_ITS ---
History of Present Illness History of Present Illness Date Patient Seen: 11/05/21 Time Patient Seen: 23:30 Chief complaint: Nausea, Headache, Left arm numbness Narrative: Ms. Tran is an 81W with PMH HTN, vertigo who presents with chest pain. She states she had been in her normal state of health and had left sided chest pain, associated with nausea and left arm numbness. No shortness of breath. She has seen her entry level recruiter for previous episodes of chest pain, and has been ordered for an stress test which is to be done in December. In the ED workup was done which showed vitals with elevated blood pressure 181/88. Labs showed wbc 5.8, hgb 13.3, plts 281. Creatinine 0.93. Trop negative. EKG showed sinus rhythm no acute ischemia. Chest xray showed no acute process. Patient's entry level recruiter was consulted and recommended admission for stress test. When I saw the patient she notes a knee injury limits her mobility, and she states her chest pain has improved. Family history: Mother with breast cancer Patient History Medical History Vertigo Family & Social History Safety & Behavioral: Feels Safe in Current Yes Environment Been Physically Hurt or No Threatened By a Person Tobacco & Substance use: Smoking Status Never smoker Substance Use Type does not use Meds Home Medications and Allergies Home Medications Medication Instructions Recorded Confirmed Type alprazolam 0.25 mg tablet 0.25 mg PO BEDTIME PRN Anxiety ##0 09/28/08 03/27/19 History citalopram 20 mg tablet 20 mg PO DAILY ##0 09/28/08 03/27/19 History diltiazem HCl 120 mg 120 mg PO DAILY ##0 06/30/16 03/27/19 History capsule,extended release 24 hr aspirin 81 mg tablet,delayed 81 mg PO DAILY 03/27/19 03/27/19 History release calcium carbonate 600 mg-vitamin 1 tab PO DAILY 03/27/19 03/27/19 History D3 20 mcg (800 unit) chewable tablet (Caltrate 600 plus D) chlorthalidone 25 mg tablet 25 mg PO DAILY 03/27/19 03/27/19 History cholecalciferol (vitamin D3) 50 2,000 unit PO DAILY 03/27/19 03/27/19 History mcg (2,000 unit) tablet (Vitamin D3) cyanocobalamin (vitamin B-12) 1,000 mcg PO DAILY 03/27/19 03/27/19 History 1,000 mcg tablet (Vitamin B-12) irbesartan 300 mg tablet 300 mg PO DAILY 03/27/19 03/27/19 History levothyroxine 50 mcg tablet 50 mcg PO DAILY 03/27/19 03/27/19 History nfyrsdow-psb-yvvmk acid 0.4 1 tab PO DAILY 03/27/19 03/27/19 History mg-lycopene 300 mcg-lutein 250 mcg tablet (Centrum Silver) nitroglycerin 0.4 mg sublingual 0.4 mg sublingual PRN PRN Chest 03/27/19 03/27/19 History tablet (Nitrostat) Pain ondansetron 4 mg disintegrating 4 mg translingual DAILY 03/27/19 03/27/19 History tablet Allergies Allergy/AdvReac Type Severity Reaction Status Date / Time Sulfa (Sulfonamide Allergy Severe rash Verified 11/05/21 19:20 Antibiotics) [SULFA (SULFONAMIDE ANTIBIOTICS)] lisinopril [LISINOPRIL] Allergy Intermediate Cough Verified 11/05/21 19:20 Review of Systems Review of Systems Narrative: 14 systems reviewed and negative aside from what is noted in HPI Exam Vital Signs (past 8 hours): - 11/05/21 19:16 11/05/21 21:46 11/06/21 00:00 Temperature 97 F L Pulse Rate 75 60 68 Respiratory Rate 16 16 16 Blood Pressure 181/88 H 163/90 H 183/80 H Pulse Oximetry 97 97 100 Oxygen Delivery Method Room Air Room Air Room Air 11/05/21 23:59 11/06/21 00:00 11/06/21 00:00 Temperature Pulse Rate 59 L 60 Respiratory Rate 15 15 Blood Pressure 183/80 H Pulse Oximetry 98 97 Oxygen Delivery Method Oxygen Delivery Method Room Air Narrative Exam Narrative: GEN: no acute distress HEENT: moist mucuous membranes, PERRL NECK: trachea midline, no JVD PULM: clear bilaterally CV: regular rate and rhythm, no murmurs ABD: soft, nontender, nondistended, no organomegaly EXT: warm and well perfused with no edema NEURO: awake, alert, oriented, no focal deficits Objective Labs Result Diagrams: 11/05/21 19:35 11/05/21 19:35 Labs: Laboratory Results - last 24 hr 11/05/21 11/05/21 19:35 19:35 WBC 5.8 RBC 4.47 Hgb 13.3 Hct 39.0 MCV 87.2 MCH 29.7 MCHC 34.1 RDW 16.0 H Plt Count 281 Neut % (Auto) 59.5 Lymph % (Auto) 30.8 [place] % (Auto) 7.8 Eos % (Auto) 1.1 L Baso % (Auto) 0.8 Neut # (Auto) 3400 Lymph # (Auto) 1800 [place] # (Auto) 500 Eos # (Auto) 100 Baso # (Auto) 0 Sodium 135 L Potassium 4.2 Chloride 103 Carbon Dioxide 26 BUN 17 Creatinine 0.93 Estimated GFR > 60 BUN/Creatinine Ratio 18.3 Glucose 103 Calcium 9.4 Magnesium 2.1 Total Bilirubin 0.5 AST 26 ALT 19 Alkaline Phosphatase 97 Total Creatine Kinase 108 CK-MB (CK-2) 0.96 CK-MB (CK-2) Rel Index 0.9 L Troponin I < 0.012 Total Protein 7.3 Albumin 4.3 Globulin 3.0 Albumin/Globulin Ratio 1.4 Lipase 72 Assessment & Plan Assessment & Plan narrative: Ms. Tran is an 81W with PMH HTN who presents with chest pain. 1. Acute chest pain -EKG shows no evidence of ischemia -first troponin negative -trend troponins -ordered for aspirin, statin -ordered for stress test 2. Hypothyroid -continue synthroid 3. Hypertension -continue patient's home blood pressure medications CODE: Full Proxy: Oumar Tran, I have utilized all available resources to reconcile the patient's home medications Time Spent With Patient Critical Care time: I spent a total of [] minutes of critical care time on this patient's care today; this time is exclusive of procedural time. Quality MIPS - Admit I confirm the patient?s Advance Care Plan is present, Code status is documented, Surrogate decision maker is in patient?s record [If Yes, STOP here]: Yes
[2021-11-05 23:59] VITALS: PULSE 59; RESP 15; O2SAT 98
[2021-11-06] VITALS (25 sets, daily range): BP systolic 154–189; BP diastolic 69–98; PULSE 56–78; RESP 12–21; TEMP 36.6; O2SAT 94–100
[2021-11-06 07:25] LABS: Add Manual Diff / Slide Review NO; Basophils Absolute Auto 0 /uL (0-100); Eosinophils Absolute Auto 100 /uL (0-450); Eosinophils Percent Auto 1.9 % (2-4); Hematocrit 37.8 % (36-46); Hemoglobin 12.7 g/dL (12.0-16.0); Lymphocytes Absolute Auto 1300 /uL (1100-4500); Lymphocytes Percent Auto 31.6 % (25-40); Mean Corpuscular HGB Conc 33.5 % (30-36); Mean Corpuscular Hemoglobin 29.3 PG (26-34); Mean Corpuscular Volume 87.5 fL (80-100); Monocytes Absolute Auto 400 /uL (0-900); Monocytes Percent Auto 9.8 % (3-14); Neutrophils Absolute Auto 2300 /uL (1500-7000); Neutrophils Percent Auto 55.7 % (50-75); Platelet Count 272 X10^3/uL (150-400); Red Blood Cell Count 4.32 X10^6/uL (4.0-5.2); Red Cell Distribution Width 15.8 % (11.6-14.8); White Blood Cell Count 4.1 X10^3/uL (4.5-11.0)
[2021-11-06 07:37] LABS: BUN Creatinine Ratio 16.3 (6-22); Blood Urea Nitrogen 14 mg/dL (7-17); Carbon Dioxide 27 mmol/L (22-32); Chloride 106 mmol/L (98-107); Estimated Glomerular Filt Rate > 60 mL/min (>60); Glucose 90 mg/dL (80-110); HEMOLYSIS < 15 (0-50); Potassium 4.5 mmol/L (3.4-5.1); Sodium 138 mmol/L (137-145)
[2021-11-06 07:46] LABS: Troponin I < 0.012 ng/mL (0.01-0.034)
[2021-11-06 08:03] LABS: COVID19 -Nasal RAPID Negative (Negative)
--- NOTE | 2021-11-06 08:09 | P.PN_ITS ---
Subjective Subjective Date Patient Seen: 11/06/21 Time Patient Seen: 08:00 Interval history: She feels well. She has no new complaints. Exam Vital Signs (past 8 hours): - 11/06/21 00:30 11/06/21 00:31 11/06/21 00:31 Pulse Rate 57 L 61 Respiratory Rate 19 17 Blood Pressure 160/74 H Pulse Oximetry 95 97 11/06/21 01:00 11/06/21 01:41 11/06/21 01:43 Pulse Rate 64 59 L 59 L Respiratory Rate 21 18 15 Blood Pressure Pulse Oximetry 96 96 98 11/06/21 01:43 11/06/21 02:00 11/06/21 02:30 Pulse Rate 57 L 58 L Respiratory Rate 14 12 Blood Pressure 178/88 H Pulse Oximetry 97 96 11/06/21 03:00 11/06/21 03:30 11/06/21 04:00 Pulse Rate 59 L 57 L Respiratory Rate 12 12 Blood Pressure 154/85 H Pulse Oximetry 96 96 11/06/21 04:00 11/06/21 04:30 11/06/21 05:00 Pulse Rate 59 L 59 L 78 Respiratory Rate 13 13 19 Blood Pressure Pulse Oximetry 97 96 96 11/06/21 05:30 11/06/21 06:00 11/06/21 06:30 Pulse Rate 56 L 59 L 61 Respiratory Rate 14 14 18 Blood Pressure Pulse Oximetry 96 94 97 11/06/21 07:00 11/06/21 07:38 11/06/21 07:39 Pulse Rate 58 L 66 61 Respiratory Rate 15 20 Blood Pressure Pulse Oximetry 97 100 98 11/06/21 07:39 Pulse Rate Respiratory Rate Blood Pressure 189/92 H Pulse Oximetry Oxygen Delivery Method Room Air Narrative Exam Narrative: GEN: no acute distress PULM: clear bilaterally CV: regular rate and rhythm, no murmurs ABD: soft, nontender, nondistended, no organomegaly Objective Labs Result Diagrams: 11/06/21 07:04 11/06/21 07:04 Labs: Laboratory Results - last 24 hr 11/05/21 11/05/21 11/06/21 19:35 19:35 07:04 WBC 5.8 4.1 L RBC 4.47 4.32 Hgb 13.3 12.7 Hct 39.0 37.8 MCV 87.2 87.5 MCH 29.7 29.3 MCHC 34.1 33.5 RDW 16.0 H 15.8 H Plt Count 281 272 Neut % (Auto) 59.5 55.7 Lymph % (Auto) 30.8 31.6 [place] % (Auto) 7.8 9.8 Eos % (Auto) 1.1 L 1.9 L Baso % (Auto) 0.8 1.0 Neut # (Auto) 3400 2300 Lymph # (Auto) 1800 1300 [place] # (Auto) 500 400 Eos # (Auto) 100 100 Baso # (Auto) 0 0 Sodium 135 L Potassium 4.2 Chloride 103 Carbon Dioxide 26 BUN 17 Creatinine 0.93 Estimated GFR > 60 BUN/Creatinine Ratio 18.3 Glucose 103 Calcium 9.4 Magnesium 2.1 Total Bilirubin 0.5 AST 26 ALT 19 Alkaline Phosphatase 97 Total Creatine Kinase 108 CK-MB (CK-2) 0.96 CK-MB (CK-2) Rel Index 0.9 L Troponin I < 0.012 Total Protein 7.3 Albumin 4.3 Globulin 3.0 Albumin/Globulin Ratio 1.4 Lipase 72 SARS-CoV-2 (PCR) 11/06/21 11/06/21 07:04 07:39 WBC RBC Hgb Hct MCV MCH MCHC RDW Plt Count Neut % (Auto) Lymph % (Auto) [place] % (Auto) Eos % (Auto) Baso % (Auto) Neut # (Auto) Lymph # (Auto) [place] # (Auto) Eos # (Auto) Baso # (Auto) Sodium 138 Potassium 4.5 Chloride 106 Carbon Dioxide 27 BUN 14 Creatinine 0.86 Estimated GFR > 60 BUN/Creatinine Ratio 16.3 Glucose 90 Calcium 9.0 Magnesium Total Bilirubin AST ALT Alkaline Phosphatase Total Creatine Kinase CK-MB (CK-2) CK-MB (CK-2) Rel Index Troponin I < 0.012 Total Protein Albumin Globulin Albumin/Globulin Ratio Lipase SARS-CoV-2 (PCR) Negative [facility] Medical History Vertigo Social History Smoking Status: Never smoker Assessment & Plan Assessment & Plan narrative: Ms. Tran is an 81W with PMH HTN who presents with chest pain. 1. Acute chest pain -EKG shows no evidence of ischemia -first troponin negative -trended troponins negative x2 -ordered for aspirin, statin -ordered for stress test 2. Hypothyroid -continue synthroid 3. Hypertension -continue patient's home blood pressure medications CODE: Full Proxy: Oumar Tran, I have utilized all available resources to reconcile the patient's home medications Time Spent With Patient Critical Care time: I spent a total of [] minutes of critical care time on this patient's care today; this time is exclusive of procedural time.
[2021-11-06] MEDS: HEPARIN 5,000 UNIT/ML VIAL 5000 UNIT SUBCUT (09:40)
[2021-11-06] MEDS: ASPIRIN EC 81 MG TABLET PO (09:40)
--- NOTE | 2021-11-06 13:51 | PC.NURSE ---
came to check on pt/ pt in stress test. don says he's going home for now and will check back in a bit he has and old back injury and cant wait in room and is hard of hearing so cant really understand anyone on phone. told where pt is and that i would have his call with an update when she returns.
--- NOTE | 2021-11-06 14:07 | PC.NURSE ---
pt has returned from her stress test. called and informed him of return to room. pt offered food. food heated up and given to pt. call light within reach, warm blankets provided.
--- NOTE | 2021-11-06 18:35 | DI.NM.S_ITS ---
DATE OF SERVICE: 11/06/2021 PROCEDURE PERFORMED: Exercise treadmill stress and rest myocardial perfusion imaging with gating to assess ejection fraction and regional wall motion. ORDERING PROVIDER: Kenyon Fuentes M.D. INDICATION: The patient is an 81-year-old female with a history of atypical chest discomfort. EXERCISE TREADMILL TESTING: The patient was able to exercise for a total of 4 minutes, 38 seconds on a standard [place] protocol, suggesting average exercise capacity with an SHONA of 0%, achieving 7.0 METs. She had a slightly accentuated heart rate response to exercise, achieving a maximum heart rate of 165 BPM (119% of her predicted maximum), and a mild hypertensive blood pressure response to exercise with a resting blood pressure of 140/92, increasing to 200/100. She had no chest discomfort or other anginal symptoms. Her resting ECG shows sinus rhythm with relatively normal ST segments. With stress, there were no significant ST- segment shifts, although at peak exercise, she develops a left bundle branch block that resolves in recovery, still with no ST-segment deviation. She had occasional PVCs, but otherwise no arrhythmias. At 3 minutes, 50 seconds of exercise at a heart rate of 144 BPM, 27.0 millicuries of technetium-99m Myoview was injected and she was imaged 10 minutes later using a gated SPECT acquisition protocol. Earlier in the day while at rest, she had been injected with 11.2 millicuries of technetium-99m Myoview and was imaged 20 minutes later, again using a gated SPECT acquisition protocol. FINDINGS: 1. Raw data: There is fair myocardial tracer uptake with moderate breast shadows noted that clearly produce some attenuation artifact. The lung/heart ratio is borderline increased at 0.42, which can be a sign of pulmonary congestion, but is not visually evident. The TID ratio was normal at 0.76. 2. Quantitated gated SPECT: Post-stress ejection fraction is estimated at 88% without any focal wall motion abnormality and specifically the distal anterior wall and anterior septum appear to have normal contractility. The resting ejection fraction is 81% with an end-diastolic volume of 75 mL and appears unchanged from the post-stress images. 3. Myocardial perfusion imaging: Post-stress supine images shows a fairly normal myocardial perfusion pattern with the exception of a moderate perfusion defect in the distal anterior wall extending into the anterior septum in a pattern that could reflect breast attenuation artifact. This defect improves, but does not completely resolve on the prone images. The resting images show an identical perfusion pattern without any clear area of improvement in the distal anterior and anteroseptal defect. IMPRESSION: 1. Probable normal myocardial perfusion study. 2. Small to moderate fixed perfusion defect in the distal anterior wall and anterior septum that improves but does not resolve on prone imaging, mostlikely reflecting breast attenuation artifact, although a previous nontransmural myocardial infarction cannot entirely be excluded. There is no evidence for any significant myocardial ischemia. 3. Normal left ventricular systolic function without any focal wall motion abnormality and normal left ventricular volumes. While the lung/heart ratio was borderline increased at 0.42, this is nonspecific given the absence of any obvious visual suggestion of increased uptake. 4. Average exercise capacity without angina or ECG evidence of ischemia, although she develops a LBBB pattern at peak exercise, likely reflecting sinus tachycardia with a rate related LBBB, although an SVT with aberrancy cannot be entirely excluded. This has been previously described. Otherwise, she had rare isolated PVCs, rarely in couplets, but no other complex ectopy.. Dia Tran - LATRICE/jun/dennis doc#: [id number]/job#: [id number] dd: 11/06/2021 16:35:00 dt: 11/06/2021 18:20:00 DICTATING MD/COPIES TO: Alireza Cooley MD/Bhaskar Peoples MD COPIES MNE: RUDDY;
--- NOTE | 2021-11-06 19:36 | P.DS_ITS ---
History of Present Illness History of Present Illness Chief complaint: Nausea, Headache, Left arm numbness Narrative: Ms. Tran is an 81W with PMH HTN, vertigo who presents with chest pain. She states she had been in her normal state of health and had left sided chest pain, associated with nausea and left arm numbness. No shortness of breath. She has seen her blankbook forwarder for previous episodes of chest pain, and has been ordered for an stress test which is to be done in December. In the ED workup was done which showed vitals with elevated blood pressure 181/88. Labs showed wbc 5.8, hgb 13.3, plts 281. Creatinine 0.93. Trop negative. EKG showed sinus rhythm no acute ischemia. Chest xray showed no acute process. Patient's blankbook forwarder was consulted and recommended admission for stress test. When I saw the patient she notes a knee injury limits her mobility, and she states her chest pain has improved. Family history: Mother with breast cancer Discharge Providers Provider Date of admission: 11/05/21 22:16 Discharge Date: 11/06/21 Primary care physician: Nereyda Oliver PA-C Discharge provider: Kenyon Fuentes MD Summary Hospital Course Discharge Diagnosis: 1. Atypical chest pain 2. Hypothyroid 3. Hypertension Hospital Course: Ms. Tran came in to the hospital with chest pain. Her pain resolved in the hospital. Her EKG was reassuring with no evidence acute ischemia. Her troponins were negative. She had a stress test that was low risk and she was able to be discharged home. Exam Vital Signs (past 8 hours): - 11/06/21 12:37 11/06/21 15:30 11/06/21 12:38 Temperature 98 F 98 F 98 F Pulse Rate 74 65 Respiratory Rate 18 18 18 Blood Pressure 181/69 H 173/69 H 181/86 H Pulse Oximetry 99 98 Oxygen Delivery Method Room Air Room Air 11/06/21 12:38 Temperature Pulse Rate 74 Respiratory Rate Blood Pressure Pulse Oximetry 98 Oxygen Delivery Method Oxygen Delivery Method Room Air Narrative Exam Narrative: GEN: no acute distress PULM: clear bilaterally CV: regular rate and rhythm, no murmurs ABD: soft, nontender, nondistended, no organomegaly Objective Labs Result Diagrams: 11/06/21 07:04 11/06/21 07:04 Labs: Laboratory Results - last 24 hr 11/05/21 11/05/21 11/06/21 19:35 19:35 07:04 WBC 5.8 4.1 L RBC 4.47 4.32 Hgb 13.3 12.7 Hct 39.0 37.8 MCV 87.2 87.5 MCH 29.7 29.3 MCHC 34.1 33.5 RDW 16.0 H 15.8 H Plt Count 281 272 Neut % (Auto) 59.5 55.7 Lymph % (Auto) 30.8 31.6 [place] % (Auto) 7.8 9.8 Eos % (Auto) 1.1 L 1.9 L Baso % (Auto) 0.8 1.0 Neut # (Auto) 3400 2300 Lymph # (Auto) 1800 1300 [place] # (Auto) 500 400 Eos # (Auto) 100 100 Baso # (Auto) 0 0 Sodium 135 L Potassium 4.2 Chloride 103 Carbon Dioxide 26 BUN 17 Creatinine 0.93 Estimated GFR > 60 BUN/Creatinine Ratio 18.3 Glucose 103 Calcium 9.4 Magnesium 2.1 Total Bilirubin 0.5 AST 26 ALT 19 Alkaline Phosphatase 97 Total Creatine Kinase 108 CK-MB (CK-2) 0.96 CK-MB (CK-2) Rel Index 0.9 L Troponin I < 0.012 Total Protein 7.3 Albumin 4.3 Globulin 3.0 Albumin/Globulin Ratio 1.4 Lipase 72 SARS-CoV-2 (PCR) 11/06/21 11/06/21 07:04 07:39 WBC RBC Hgb Hct MCV MCH MCHC RDW Plt Count Neut % (Auto) Lymph % (Auto) [place] % (Auto) Eos % (Auto) Baso % (Auto) Neut # (Auto) Lymph # (Auto) [place] # (Auto) Eos # (Auto) Baso # (Auto) Sodium 138 Potassium 4.5 Chloride 106 Carbon Dioxide 27 BUN 14 Creatinine 0.86 Estimated GFR > 60 BUN/Creatinine Ratio 16.3 Glucose 90 Calcium 9.0 Magnesium Total Bilirubin AST ALT Alkaline Phosphatase Total Creatine Kinase CK-MB (CK-2) CK-MB (CK-2) Rel Index Troponin I < 0.012 Total Protein Albumin Globulin Albumin/Globulin Ratio Lipase SARS-CoV-2 (PCR) Negative [facility] Medical History Vertigo Social History Smoking Status: Never smoker Discharge Plan Discharge Plan Patient Disposition: Home Provider Discharge Comment: Ms. Tran came in with chest pain. Her pain resolved. She did not have a heart attack. She had a stress test with no evidence of problem. She should follow up with her PCP and cardiology as soon as she can. Discharge orders & Medications Prescriptions: Continued alprazolam 0.25 mg Tablet 0.25 mg PO BEDTIME PRN (Reason: Anxiety) Qty: 0 citalopram 20 mg Tablet 20 mg PO DAILY Qty: 0 diltiazem HCl 120 MG capsule,extended release 24hr 120 mg PO DAILY Qty: 0 chlorthalidone 25 mg tablet 25 mg PO DAILY aspirin 81 mg Tablet,Delayed Release (Dr/Ec) 81 mg PO DAILY levothyroxine 50 mcg tablet 50 mcg PO DAILY irbesartan 300 mg tablet 300 mg PO DAILY nitroglycerin [Nitrostat] 0.4 mg Tablet, Sublingual 0.4 mg sublingual PRN PRN (Reason: Chest Pain) ondansetron 4 mg tablet,disintegrating 4 mg translingual DAILY Centrum Silver 0.4-300-250 mg-mcg-mcg Tablet 1 tab PO DAILY cyanocobalamin (vitamin B-12) [Vitamin B-12] 1,000 mcg Tablet 1,000 mcg PO DAILY Label Comments: sublingual cholecalciferol (vitamin D3) [Vitamin D3] 2,000 unit Tablet 2,000 unit PO DAILY Caltrate 600 plus D 600 mg (1,500 mg)-800 unit Tablet,Chewable 1 tab PO DAILY Follow up/Referrals: Nereyda Oliver PA-C [Primary Care Provider] - Diet/Activity/Treatments Diet: Regular Discharge Data Primary Care Provider: Nereyda Oliver Attending Provider: Kenyon Fuentes
--- NOTE | 2021-11-06 20:33 | PC.NURSE ---
Pt d/c'd directly from ED by RN Pat Mcadams. Paperwork printed in [facility]. Discharge instructions and education given by ED RN. Pt was not ever brought up to [facility]. Left campus at 20:06.
== END 2021-11-06 20:06 | disposition home or self-care (01) ==
LOC: ED 22:10 → AC 22:17
PROVIDERS: Admitting Provider Internal Medicine; Emergency Provider Internal Medicine; PCP Physician Assistant; Referring Provider Emergency Medicine; Visit Provider Internal Medicine
DX: R07.9 Chest pain, unspecified (principal); R20.0 Anesthesia of skin; R11.0 Nausea; E03.9 Hypothyroidism, unspecified; I10 Essential (primary) hypertension; Z20.822 Contact with and (suspected) exposure to COVID-19
CPT/HCPCS: 36415; 71045; 78452; 80048; 80053; 82550; 82553; 83690; 83735; 84484; 85025; 87635; 93005; 93017; 96372; 99283; 99284; C9803; G0378; A9502; J1644

== ENCOUNTER → 2021-11-26 08:59 | Outpatient (CLI) | payer MEDICARE, OTHER, SELFPAY ==
--- NOTE | 2021-11-26 09:00 | DI.MG.S_ITS ---
BILATERAL DIGITAL SCREENING MAMMOGRAM 3D/2D WITH CAD: 11/26/2021 CLINICAL: Routine screening. Comparison is made to exams dated: 05/26/2021 mammogram, 11/25/2020 mammogram, 11/02/2020 mammogram, 10/20/2019 mammogram, and 09/21/2018 mammogram - [facility]. There are scattered areas of fibroglandular density in both breasts (category b / 25%-50% glandular tissue). Current study was also evaluated with a Computer Aided Detection (CAD) system. There is a benign calcification in the left breast. There also are benign vascular calcifications in the right breast. Additionally, there are benign post operative findings in the left breast. No significant masses, calcifications, or other findings are seen in either breast. There has been no significant interval change. IMPRESSION: BENIGN There is no mammographic evidence of malignancy. A 1 year screening mammogram is recommended. This exam was interpreted at Station ID: [id number]. NOTE: For mammograms, a report in lay terms will be sent to the patient. Approximately 15% of breast malignancies will not be visualized mammographically. In the management of a palpable breast mass, a negative mammogram must not discourage biopsy of a clinically suspicious lesion. Electronically Signed By: Cristal bear/huber:11/26/2021 13:04:24 letter sent: Normal Exam ACR BI-RADS Category 2: Benign Finding(s) 3342F
== END ==
PROVIDERS: PCP Physician Assistant; Referring Provider Physician Assistant; Visit Provider Physician Assistant
DX: Z12.31 Encounter for screening mammogram for malignant neoplasm of breast (principal)
CPT/HCPCS: 77063; 77067

== ENCOUNTER → 2022-03-09 12:02 | Outpatient (CLI) | payer MEDICARE, OTHER, SELFPAY ==
[2022-03-09 13:13] LABS: Add Manual Diff / Slide Review NO; Basophils Absolute Auto 0 /uL (0-100); Basophils Percent Auto 0.8 % (0-2); Eosinophils Absolute Auto 100 /uL (0-450); Eosinophils Percent Auto 2.2 % (2-4); Hematocrit 39.1 % (36-46); Hemoglobin 12.6 g/dL (12.0-16.0); Lymphocytes Absolute Auto 1800 /uL (1100-4500); Lymphocytes Percent Auto 35.2 % (25-40); Mean Corpuscular HGB Conc 32.3 % (30-36); Mean Corpuscular Hemoglobin 28.6 PG (26-34); Mean Corpuscular Volume 88.6 fL (80-100); Monocytes Absolute Auto 500 /uL (0-900); Monocytes Percent Auto 9.2 % (3-14); Neutrophils Absolute Auto 2700 /uL (1500-7000); Neutrophils Percent Auto 52.6 % (50-75); Platelet Count 285 X10^3/uL (150-400); Red Blood Cell Count 4.41 X10^6/uL (4.0-5.2); Red Cell Distribution Width 16.4 % (11.6-14.8); White Blood Cell Count 5.1 X10^3/uL (4.5-11.0)
[2022-03-09 13:34] LABS: C-Reactive Protein Quant < 0.5 mg/dL (<1.0)
[2022-03-09 14:39] LABS: Erythrocyte Sedimentation Rate 11 MM/HR (0-20)
== END ==
PROVIDERS: PCP Physician Assistant; Referring Provider Orthopaedic Surgery; Visit Provider Orthopaedic Surgery
DX: M25.561 Pain in right knee (principal); M25.462 Effusion, left knee
CPT/HCPCS: 36415; 85025; 85651; 86140

== ENCOUNTER → 2022-03-20 09:00 | Outpatient (CLI) | payer MEDICARE, OTHER, SELFPAY ==
--- NOTE | 2022-03-20 | DI.NM.S_ITS ---
PROCEDURE: NM BONE SCAN WHOLE BODY RADIOPHARMACEUTICAL: 20.5 mCi Tc-99m MDP IV. INDICATIONS: Presence of left artificial knee joint TECHNIQUE: Delayed whole-body scintigrams were obtained approximately 3-4 hours after intravenous injection of radiotracer. Anterior and posterior views were acquired from vertex to feet. Additional left and right oblique views of the knees were obtained. COMPARISON: [facility], CR, XR KNEE LT 3V, 11/04/2021, 11:19. FINDINGS: On whole body images, there is normal radiotracer excretion in the urinary system. Some degenerative uptake is seen in the shoulders, and axial skeleton. Degenerative uptake is also seen in the right knee, and ankle joints. Moderate degree of uptake is seen surrounding the medial left knee prosthesis. Degenerative changes are also seen in the lateral compartment. IMPRESSION: Moderate uptake around the medial unicondylar left knee prosthesis. This can be seen in the postoperative setting, or as a result of loosening or infection. If necessary, consider repeat bone scan as a three phase protocol and/or repeat radiograph. Dictated by: Ernesto Jha M.D. on 03/20/2022 at 13:32 Approved by: Ernesto Jha M.D. on 03/20/2022 at 13:36
== END ==
PROVIDERS: PCP Physician Assistant; Referring Provider Orthopaedic Surgery; Visit Provider Orthopaedic Surgery
DX: M25.562 Pain in left knee (principal); Z96.652 Presence of left artificial knee joint
CPT/HCPCS: 78306; A9503

== ENCOUNTER 2022-07-07 08:46 | Inpatient (IN) | payer MEDICARE, OTHER, SELFPAY ==
[2022-07-02 12:51] VITALS: BMI 29.4
[2022-07-07] VITALS (13 sets, daily range): BP systolic 94–171; BP diastolic 58–94; PULSE 58–74; RESP 12–18; TEMP 36.2–36.8; O2SAT 90–99; BMI 29.4
--- NOTE | 2022-07-07 06:00 | DI.RAD.S_ITS ---
PROCEDURE: XR KNEE LT 1TO2V INDICATIONS: TKA TECHNIQUE: 2 view(s) of the knee acquired. COMPARISON: [facility], CR, XR KNEE LT 1TO2V, 07/01/2020, 11:08. FINDINGS: Bones: Patient is status post knee joint arthroplasty. Hardware components are in expected positions. Visualized bony structures are intact. Soft tissues: Overlying postoperative changes are noted. IMPRESSION: Expected postsurgical change for left knee arthroplasty. Dictated by: Evelin Fabian MD, PhD on 07/07/2022 at 15:07 Approved by: Evelin Fabian MD, PhD on 07/07/2022 at 15:08
[2022-07-07 09:33] LABS: COVID19 -Nasal RAPID Negative (Negative)
[2022-07-07] MEDS: ACETAMINOPHEN 325 MG TABLET 975 MG PO (09:33)
[2022-07-07] MEDS: CELECOXIB 200 MG CAPSULE PO (09:33)
[2022-07-07] MEDS: LACTATED RINGERS 1,000 ML 42 ML IV ×2 (09:52→12:33)
[2022-07-07] MEDS: VANCOMYCIN 1,000 MG/200 ML PIGGYBACK 200 MG IV (09:58)
--- NOTE | 2022-07-07 10:21 | PM.PREOP ---
Pre-operative Note Interval Note History & Physical reviewed/Exam performed by Physician: Yes Changes to H&P: No
--- NOTE | 2022-07-07 10:22 | PM.OP.1 ---
Operative Date/Time/Diagnoses Date of procedure: 07/07/22 Time of procedure: 11:10 Pre-op diagnosis: Left knee history of medial compartment arthroplasty with slight loosening, progressive osteoarthritis and a loose body Post-op diagnosis: same Procedure & Clinicians Procedure: Revision left total knee arthroplasty unicompartment total knee arthroplasty Same procedure as scheduled: Yes Indications: This is a 81-year-old female with a history of a left knee medial compartment arthroplasty. She notes persistent ongoing medial joint line pain. She also has a history of locking and had fairly large loose body noted in the lateral compartment. She has some progressive osteoarthritis of her lateral compartment and patellofemoral joint. She is brought the operating room for revision to total knee arthroplasty. Preoperative workup did not suggest underlying infection. Surgeon: Paris Maldonado Stitcher Tape Controlled Machine: Liana Hernandez Anesthesia Type: General and Spinal Operative Notes Findings: Adequate bone, adequate stability, mild synovitis, until obvious softening of bone or suggestions of significant infection, loose body removed. Closure Type: primary Specimen(s): other (Cultures and PCR) Prosthetic devices, grafts, tissues, transplants, or devices: Maldonado and Nephew Journey BCS 2 size 4 femur, size 4 tibia, +11 poly, Journey BCS to, 10 x 100 mm stem, 35 x 7-1/2 mm patella Estimated Blood Loss (mL): 250 Blood products transfused: none Tourniquet time (min): 137 Procedure in detail: The patient was seen in the pre-operative area, where the patient identified the left knee as the operative site and this was marked with my initials. The patient received pre-operative antibiotics, and was taken to the operating room and placed on the operative table in the supine position. After satisfactory anesthesia, a full stack software developer out was performed. The left leg was encircled with a tourniquet about the proximal thigh, and the leg was prepared from the toes to the tourniquet with ChloroPrep in the usual fashion and draped through sterile drapes. The leg was elevated and exsanguinated with Eschmark bandage and the tourniquet inflated to [250] mmHg pressure. The knee was approached through an approximately 18 cm incision centered over the patella and carried into the knee through a medial parapatellar arthrotomy. A portion of the lateral meniscus was resected. Soft tissue was carefully mobilized around the patella the patella was measured with a caliper. Bone was resected from the patella and the patellar height was reconstituted with an appropriate sized patellar component. A cover was then placed on the patella. A small amount of additional medial and lateral meniscus was resected. The polyethylene was removed and soft tissue was carefully cleared from around the medial unicompartment replacement components. The distal femur was cut at 5?. A [+2] cut was used. The initial cut was started and then we left the pins in to clean up the cup after the femoral component was removed. A TPS was used to carefully remove the femoral component. Carefully cleared around the component removing mainly cement and trying to preserve as much bone as possible. The pins and distal femoral block were then used to find on the freshened up the distal femoral cut on the medial side. It looked like an appropriate distal femoral cut and the cut was made without difficulty. The distal femoral cut was reasonably good there was a little loss from the medial femoral condyle cancellous bone. We harvested bone for ultimate grafting to fill in the defect. Attention was then directed to the tibia. A TPS was used to carefully free the tibial component from medial tibia. The component was then removed. An extramedullary guide was used for the tibial cut. 11 mm was resected off the least affected side. The patient was placed in extension residual medial and lateral meniscus as well as any residual bone was carefully resected. Hemostasis was achieved especially posteriorly. Additional local was injected into the posterior capsule. The extension gap was assessed and additional releases for gap balancing were performed as necessary. It was checked with the gap casting chipper. The rotation was assessed and the appropriate size femoral guide was placed on the distal femur and finishing cuts were made. The rotation was set by making up for the posterior medial defect and then externally rotating the femoral component. An osteotome was used. There was no evidence of notching. The anterior, posterior and chamfer cuts were then made. The posterior osteophytes and soft tissues were then removed. The posterior capsule was injected with part of a mixture of 60 ml 0.25% Marcaine mixed with 20 ml Exparel for post operative pain control. The femoral component was placed and the notch was finished. The remainder of this mixture was injected into the capsule and subcutaneous tissues during cement curing. The tibial and femoral components were then placed and the knee placed through a range of motion. Range of motion was [0-130], with good stability throughout the range. The trials were then removed, and the tibia was finished. A short cemented stem was also placed on the tibia. The bone was prepared with pulsatile lavage, and dried with a sponge. Cement was applied and the final prosthetics placed. Excess cement was removed during and after cement curing. A brief Betadine soak was performed. After confirming there was no extruded cement posteriorly, the final tibial insert was placed. The knee was copiously irrigated and the tourniquet deflated. Hemostasis was obtained with the Bovie cautery. A drain was placed and brought out superolaterally. The capsule was closed with interrupted nonabsorbable suture. The subcutaneous layer was closed with barbed sutures, and the skin with a running 3-0 V-Lock suture and Surgical glue. A Eve dressing was applied and the patient was taken to recovery having tolerated the procedure well. Complications: none Post-operative Condition: stable Disposition: Acute Care Plan for aftercare: The patient will be maintained on a standard total knee replacement protocol with weight bearing as tolerated. The patient will receive aspirin and sequential compression devices for DVT prophylaxis. The patient will be discharged home when safe for the home environment.
[2022-07-07] MEDS: CEFAZOLIN 2 GM/100 ML PREMIX 100 ML IV ×2 (11:10→18:48)
[2022-07-07] MEDS: TRANEXAMIC ACID 1,000 MG VIAL 2000 MG INJ ×2 (11:30→14:00)
[2022-07-07] MEDS: BUPIVACAINE LIPOSOME 266 MG/20 ML VIAL INJ (11:55)
[2022-07-07] MEDS: BUPIVACAINE 0.25% (PF) 60 ML, EPINEPHrine 0.3 MG INJ (11:55)
--- NOTE | 2022-07-07 12:21 | SUR.OPER ---
Supine on padded OR bed. Pillow under head, arms secured on padded armboards <90 degree abduction. Safety belt across torso. Non-operative leg secured with tape over blanket over lower leg. Operative leg secured in DeMayo/Billy/Nathe positioner. Foam padded brace at thigh of operative leg.
--- NOTE | 2022-07-07 15:07 | SUR.PHASEI ---
pt waiting to transfer and report given to Timoteo JONES and waiting on Dr. Maldonado to complete transfer orders.
[2022-07-07] MEDS: LACTATED RINGERS 1,000 ML 100 ML IV (15:55)
[2022-07-07] MEDS: IBUPROFEN 400 MG TABLET PO ×3 (15:57→23:18)
[2022-07-07] MEDS: ACETAMINOPHEN 325 MG TABLET 650 MG PO ×2 (15:57→23:18)
--- NOTE | 2022-07-07 17:20 | PT-IP ANOTE ---
Visited with patient; she was able to move her operative leg though stated it was still somewhat numb. Instructed patient to perform heel slides every hour while awake to reduce stiffness. Educated patient that PT will eval her in the morning.
[2022-07-07] MEDS: ASPIRIN EC 81 MG TABLET PO (20:10)
[2022-07-07] MEDS: DOCUSATE 100 MG CAPSULE PO (20:10)
[2022-07-08 01:39] VITALS: BP 169/89; PULSE 68; RESP 20; TEMP 36.3; O2SAT 96
[2022-07-08] MEDS: CEFAZOLIN 2 GM/100 ML PREMIX 100 ML IV (03:20)
[2022-07-08 05:00] VITALS: BP 142/71; PULSE 71; RESP 18; TEMP 36.4; O2SAT 95
[2022-07-08] MEDS: ACETAMINOPHEN 325 MG TABLET 650 MG PO ×2 (06:02→09:05)
[2022-07-08] MEDS: LEVOTHYROXINE 50 MCG TABLET PO (06:03)
[2022-07-08 06:14] LABS: Hemoglobin 11.7 g/dL (12.0-16.0)
--- NOTE | 2022-07-08 06:54 | P.DS_ITS ---
History of Present Illness History of Present Illness Date Patient Seen: 07/08/22 Time Patient Seen: 06:54 Chief complaint: INPT Narrative: Operative Date/Time/Diagnoses Date of procedure: 07/07/22 Time of procedure: 11:10 Pre-op diagnosis: Left knee history of medial compartment arthroplasty with slight loosening, progressive osteoarthritis and a loose body Post-op diagnosis: same Procedure & Clinicians Procedure: Revision left total knee arthroplasty unicompartment total knee arthroplasty Same procedure as scheduled: Yes Indications: This is a 81-year-old female with a history of a left knee medial compartment arthroplasty.? She notes persistent ongoing medial joint line pain.? She also has a history of locking and had fairly large loose body noted in the lateral compartment.? She has some progressive osteoarthritis of her lateral compartment and patellofemoral joint.? She is brought the operating room for revision to total knee arthroplasty.? Preoperative workup did not suggest underlying infection. Surgeon: Paris Maldonado Sheetmetal Worker: Liana Hernandez Anesthesia Type: General and Spinal Operative Notes Findings: Adequate bone, adequate stability, mild synovitis, until obvious softening of bone or suggestions of significant infection, loose body removed. Closure Type: primary Specimen(s): other (Cultures and PCR) Prosthetic devices, grafts, tissues, transplants, or devices: Maldonado and Nephew Journey BCS 2 size 4 femur, size 4 tibia, +11 poly, Jourpage BCS to, 10 x 100 mm stem, 35 x 7-1/2 mm patella Estimated Blood Loss (mL): 250 Blood products transfused: none Tourniquet time (min): 137 Discharge Providers Provider Date of admission: 07/07/22 08:46 Discharge Date: 07/08/22 Primary care physician: Hannah Zimmer PA-C Consults: 07/07/22 06:00 Consult to Anesthesiology Routine Comment: Consulting Provider: Anesthesiologist Reason for consultation: Regional block for post operative pain control 07/07/22 15:12 Consult to Discharge Planning Routine Comment: Consult to Occupational Therapy Evaluate & Treat Comment: Physician Instructions: Evaluate and treat Consult to Physical Therapy Evaluate & Treat Comment: Physician Instructions: postop TKA protocol Discharge provider: Orquidea Reynolds PA-C Summary Hospital Course Discharge Diagnosis: Left knee history of medial compartment arthroplasty with slight loosening, progressive osteoarthritis and a loose body; s/p revision total knee arthroplasty Hospital Course: Ms Tran's hospital course was unremarkable. On the morning of POD# 1, she was feeling well and wanted to go home. She had been OOB to use the bathroom, but had not yet worked w/ PT. Her pain was well-controlled w/ oral medication. She had not yet worked w/ PT. Exam Vital Signs (past 8 hours): - 07/08/22 01:39 07/08/22 05:00 Temperature 97.3 F L 97.5 F L Pulse Rate 68 71 Respiratory Rate 20 18 Blood Pressure 169/89 H 142/71 H Pulse Oximetry 96 95 Oxygen Flow Rate 0 0 Oxygen Delivery Method Room Air Oxygen Flow Rate 0 Narrative Exam Narrative: 5/5 strength in hip flexors, quadriceps, hamstrings, DF, PF, EHL on on left. Sensation to light touch intact throughout RLE. Calf soft, compressible, nonte nder and without palpable cords or masses. CHAS dressing functioning, CDI. Objective Labs 07/08/22 05:28 Labs: Laboratory Results - last 24 hr 07/07/22 07/08/22 09:00 05:28 Hgb 11.7 L Hct 36.0 SARS-CoV-2 (PCR) Negative [facility]END[facility] TO [facility] Medical History (Updated 07/02/22 @ 13:53 by Kesha Jordan RN) 1st degree AV block Anxiety GERD (gastroesophageal reflux disease) History of COVID-19 (03/2022) HTN (hypertension) Melanoma Osteoarthritis Thyroid disorder Vertigo Surgical History (Updated 07/08/22 @ 07:37 by Orquidea Reynolds PA-C) History of left nephrectomy (1984) History of lumpectomy of left breast History of partial hysterectomy Hx of bilateral cataract extraction Hx of hernia repair Hx of repair of right rotator cuff S/P left unicompartmental knee replacement (01/23/21) Social History household members: spouse Smoking Status: Never smoker alcohol intake: current Discharge Assessment & Plan Assessment and Plan Assessment: Left knee history of medial compartment arthroplasty with slight loosening, progressive osteoarthritis and a loose body; s/p revision total knee arthroplasty Plan of Treatment: Discharge home after PT if PT agrees. Multimodal pain control, ASA 81mg BID x 6 weeks for VTE prophylaxis, outpt PT, f/u in office in 2 weeks. Discharge Plan Discharge Plan Patient Disposition: Home Discharge orders & Medications Prescriptions: New oxycodone 5 mg Tablet 5 mg PO Q4-6H PRN (Reason: Pain, Moderate (4-6)) Qty: 50 0RF aspirin 81 mg Tablet,Delayed Release (Dr/Ec) 81 mg PO BID Qty: 90 0RF docusate sodium 100 mg Capsule 100 mg PO BID PRN (Reason: constipation) Qty: 60 1RF ondansetron 4 mg Tablet,Disintegrating 4 mg PO Q4HR PRN (Reason: Nausea And Vomiting) Qty: 30 0RF Continued alprazolam 0.25 mg Tablet 0.25 mg PO BEDTIME PRN (Reason: Anxiety) Qty: 0 citalopram 20 mg Tablet 20 mg PO DAILY Qty: 0 diltiazem HCl 120 MG capsule,extended release 24hr 120 mg PO DAILY Qty: 0 levothyroxine 50 mcg tablet 50 mcg PO DAILY irbesartan 300 mg tablet 300 mg PO DAILY nitroglycerin [Nitrostat] 0.4 mg Tablet, Sublingual 0.4 mg sublingual PRN PRN (Reason: Chest Pain) Centrum Silver 0.4-300-250 mg-mcg-mcg Tablet 1 tab PO DAILY cyanocobalamin (vitamin B-12) [Vitamin B-12] 1,000 mcg Tablet 1,000 mcg PO DAILY Patient Comments: sublingual cholecalciferol (vitamin D3) [Vitamin D3] 2,000 unit Tablet 2,000 unit PO DAILY Caltrate 600 plus D 600 mg (1,500 mg)-800 unit Tablet,Chewable 1 tab PO DAILY acetaminophen 500 mg Capsule 1,000 mg PO Q6H PRN (Reason: Pain) Discontinued aspirin 81 mg Tablet,Delayed Release (Dr/Ec) 81 mg PO DAILY Follow up/Referrals: Paris Maldonado MD [Physician] - As previously scheduled (Follow up w/ Violeta Hernandez PA-C, on 07/22/2022 @ 1:00 pm at [facility] office in [place].) Hannah Zimmer PA-C [Primary Care Provider] - Diet/Activity/Treatments Diet: Diet as Tolerated Activity: Walk frequently! Cold/Heat Therapy: Ice to knee as needed for pain. Skin/Wound/Dressing Care Report to your healthcare provider any signs of infection, such as:: chills, fever, night sweats, unusual drainage and unusual redness Dressing: May shower; may get battery pack wet, but keep out of direct shower spray. When batteries in 5-7 days, may disconnect or cut off battery pack and dispose of it. Leave dressing in place until follow up in office. No bathing or otherwise soaking incision. Call the office if the dressing becomes saturated inside. Visit Report/Discharge Packet Instructions: DI for Knee Replacement, DI for Prescription Opioid Use Stand Alone Forms: Patient Portal/API, Stroke Signs & Symptoms, Surgery Discharge Discharge Data Primary Care Provider: Hannah Zimmer
[2022-07-08 07:46] VITALS: BP 160/89; PULSE 77; RESP 17; TEMP 36.1; O2SAT 97
[2022-07-08] MEDS: ASPIRIN EC 81 MG TABLET PO (09:04)
[2022-07-08] MEDS: CALCIUM CARBONATE 500 MG TAB PO (09:04)
[2022-07-08] MEDS: CITALOPRAM 10 MG TABLET 20 MG PO (09:04)
[2022-07-08] MEDS: CYANOCOBALAMIN (VITAMIN B-12) 500 MCG TABLET 1000 MCG PO (09:04)
[2022-07-08] MEDS: CHOLECALCIFEROL (VITAMIN D3) 1,000 UNIT TABLET 2000 UNIT PO (09:04)
[2022-07-08] MEDS: DOCUSATE 100 MG CAPSULE PO (09:04)
[2022-07-08 09:05] VITALS: BP 160/89; PULSE 77
[2022-07-08] MEDS: MULTIVITAMIN 1 TABLET 1 TAB PO (09:05)
[2022-07-08] MEDS: dilTIAZem CD 120 MG CAP PO (09:05)
[2022-07-08] MEDS: LOSARTAN 50 MG TABLET 100 MG PO (09:05)
--- NOTE | 2022-07-08 10:20 | OT.IPNOTE ---
Attempted to see pt for OT eval, pt already dressed to go home. Able to touch base with pt for her OT needs, pt has a supportive to assist at home. Pt already able to reach her LLE for dressing needs, in addition that her will be able to assist her. No charge.
--- NOTE | 2022-07-08 11:43 | PT.IIE ---
Current Diagnoses Pain due to internal orthopedic prosthetic devices, implants and grafts, initial encounter (07/07/22) Presence of unspecified artificial knee joint (07/07/22) Surgery Performed Operation Date: 07/07/22 10:45 Actual Procedures p Total Knee Arthroplasty Revision all components, uni to total(Left) - Paris Maldonado MD Surgical History (Last Updated 07/02/22 @ 13:11 by Kesha Jordan, RN) History of left nephrectomy (1984) History of lumpectomy of left breast History of partial hysterectomy Hx of bilateral cataract extraction Hx of hernia repair Hx of repair of right rotator cuff S/P left unicompartmental knee replacement (01/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) Medical History (Last Updated 07/02/22 @ 13:53 by Kesha Jordan, RN) 1st degree AV block Anxiety GERD (gastroesophageal reflux disease) History of COVID-19 (03/2022) HTN (hypertension) Melanoma Osteoarthritis Thyroid disorder Vertigo Physical Therapy Inpatient Evaluation/Re-Eval M1 PT/OT-IP Prior Functional Status Start: 07/08/22 11:31 Freq: NEEDED Status: Active Protocol: Document 07/08/22 11:31 ES (Rec: 07/08/22 11:43 ES [id number]) Medical Review Prior Functional Status Medical History Reviewed Yes Diet/Fluid Consistency Regular Communication WFL Mobility and Gait Indep with cane Activities of Daily Living and IADL's Indep Social History Household Members spouse Living Arrangements House Number of Floors (Floors) One Floor Number of Stairs To Enter/Railing? 3 with single rail Home Environment High Toilet,Walk in Shower,Tub /Shower,Tub/Shower Doors Home Equipment Four Wheel Walker,Straight Cane Employment Status Retired Additional Social History Comment is able to assist M2 PT-IP Current Condition Start: 07/08/22 11:31 Freq: NEEDED Status: Active Protocol: Document 07/08/22 11:31 ES (Rec: 07/08/22 11:43 ES [id number]) Physical Therapy Current Condition Current Condition Evaluation Date 07/08/22 Treatment Diagnosis s/p L TKA Onset Date 07/07/22 M3 PT-IP Subjective Start: 07/08/22 11:31 Freq: NEEDED Status: Active Protocol: Document 07/08/22 11:31 ES (Rec: 07/08/22 11:43 ES [id number]) Subjective Physical Therapy Visit Type Type Initial Evaluation Visit Start Time 08:57 Visit Stop Time 09:38 Total Visit Minutes 41 Physical Therapy Visit Comments Patient Comments Patient up in chair and agreeable to work with PT. Reported no pain. Patient Goals To be able to work in her yard /garden again. Therapy Pain Assessment Pain Present Pain Present Denied Pain M4 PT-IP Mobility and Gait Start: 07/08/22 11:31 Freq: NEEDED Status: Active Protocol: Document 07/08/22 11:31 ES (Rec: 07/08/22 11:43 ES [id number]) PT-Bed Mobility Assessment Supine to Sit Supine to Sit Standby Assistance Sit to Supine Sit to Supine Standby Assistance Scooting Scooting to Edge of Bed Independent PT-Transfer Assessment Sit to and From Stand Sit to and from Stand Standby Assistance,Use of Upper Extremities Equipment Transfer Assistive Device Gait Belt,Front Wheeled Walker Transfers Transfer Destination Chair,Toilet Transfer Technique Stand Step Pivot Transfer Ability Level of Assist Standby Assistance Comments Mobility Comments Cues for placing operative foot forward, cues for hand placement with good recall. Gait Assessment Gait Gait Assistance Required: Standby Assistance Distance (Feet) 150 Able to Maintain Weight Bearing Status Yes During Gait Assistive Devices Assistive Device Gait Belt,Front Wheeled Walker Gait Deviations General Gait Pattern Antalgic Factors Limiting Gait Function Factors Limiting Gait Function Decreased Strength Comments Gait Comments Ambulated with decreased step length initially, then progressed to increased step length with cues. Stair Climbing Assessment Evaluation Level of Assist On Stairs Standby Assistance Devices Stair Climbing Assistive Devices Left Railing Technique/Endurance Stair Climbing Direction Ascend and Descend Stair Climbing Technique Step to Step Number of Steps Climbed 3 Query Text: Stair Climbing Set # Repetitions (reps) 2 Comments Stair Climbing Comments Initially performed with B rails facing forward, then performed with sidestepping using single rail. Educated patient to use sidestepping until able to transition to single rail. PT-Balance Assessment Sitting Balance and Reactions Static Sitting Balance Ability Normal Dynamic Sitting Balance Ability Normal Standing Balance and Reactions Static Standing Balance Ability Good Dynamic Standing Balance Ability Good Device Used FWW M5 PT-IP Objective Assessments Start: 07/08/22 11:31 Freq: NEEDED Status: Active Protocol: Document 07/08/22 11:31 ES (Rec: 07/08/22 11:43 ES [id number]) Orientation Orientation/Cognition Level of Alertness Alert Orientation Name,Age,Birthday,Month,Date, Year,Day of Week,Place, Situation Language Function Ability No Deficits Noted Safety Awareness Understands Safety Issues Memory Description No Deficits Noted Gross Range of Motion Upper Extremity ROM Assessment Within Functional Limits Lower Extremity ROM Assessment Left Impaired Impairments L knee limited 2/2 surgery/ stiffness Strength Upper Extremity Strength Assessment Within Functional Limits Lower Extremity Strength Assessment Left Impaired Hip WFL Knee grossly 3+/5 Ankle WFL Coordination Assessment Gross Coordination Gross Coordination WNL Sensation Assessment Sensation Gross Sensation WNL Muscle Tone Muscle Tone WNL Yes M6 PT-IP Treatment Start: 07/08/22 11:31 Freq: NEEDED Status: Active Protocol: Document 07/08/22 11:31 ES (Rec: 07/08/22 11:43 ES [id number]) Physical Therapy Treatment Exercises Exercises Ankle Pumps,Gluteal Sets,Quad Sets,Heel Slides,Straight Leg Raises,Short Arc Quads,Passive Knee Extension Hang,Seated Knee Flexion/Extension Knee ROM Measurement 90 degrees flexion in sitting Education Education Provided Precautions,Weight Bearing Status,Post-Op Packet,Safety M7 PT-IP Assessment and Plan Start: 07/08/22 11:31 Freq: NEEDED Status: Active Protocol: Document 07/08/22 11:31 ES (Rec: 07/08/22 11:43 ES [id number]) PT Summary Assessment and Plan Potential Rehabilitation Potential Excellent Status of Condition at Evaluation Stable Summary Impairments ROM,Strength,Balance,Bed Mobility,Transfers,Gait Assessment Summary Patient is a 81 year old female s/p L TKA who presents with impaired functional mobility due to the above impairments. Patient demonstrated ability to perform all mobility using FWW with supervision, and was able to ambulate household distances and ascend/descend stairs with modified sidestepping pattern with supervision. Her pain was well -controlled throughout visit. She demonstrated sufficient knee flexion ROM and good understanding of HEP. She is appropriate to d/c home with 's assistance. Frequency of Treatment Frequency Of Treatment Discharge Weight Bearing Status Weight Bearing Status Weight Bear as Tolerated Recommendations To Nursing Amount of Assist Needed Standby Assistance Discharge Recommendations PT Discharge Recommendations Home with Assistance, Outpatient PT Transportation Needs at Discharge Private Vehicle
--- NOTE | 2022-07-08 12:44 | CM.DANOTE ---
Initial DCP Assessment Note 81 yo F s/p knee surgery, cleared by therapies for return home w/assist, outpatient PT. Discharge home today, no needs from this CM team NABEEL Discharge Planning/Care Management CM Discharge Assessment Start: 07/08/22 08:42 Freq: Status: Discharge Protocol: Document 07/08/22 08:42 NABEEL (Rec: 07/08/22 08:51 NABEEL [id number]) Discharge Planning Assessment Assigned Training Administrator LIV Velazco DPOA/Assigned Designee Name Oumar () Nathalia (daughter) Contact Information Don: [phone] Nathalia: Advance Directives? Yes Advance Directives on File Yes History Provided By Patient,Medical Record Prior Living Arrangements House Household Members spouse Type of transporation used prior to Drives own vehicle admit Independent with ADL's Yes: Poor activity tolerance r /t pain Is patient alert and oriented? Yes Needs Assistance With Home Chores / Shopping Barriers to Discharge No Comment Patient is an 81 yo female s/p revision total knee arthroplasty PCP Hannah ELIAS /Mat Patient has planned to return home w/family to assist, she is eager to return home however still awaits eval with PT this morning If cleared by therapies, patient plans to return home w /family and outpatient PT No needs identifed by this CM team at this time , will plan to follow closely to address any DC needs or concerns that may arise Discharge Plan Home Transportation Arrangement Family to transport Referrals Initiated None needed Additional Comment Following Closely in case HH vs SNF recommended
== END 2022-07-08 10:40 | disposition home or self-care (01) | DRG 468 ==
PROVIDERS: Admitting Provider Orthopaedic Surgery; PCP Physician Assistant; Referring Provider Orthopaedic Surgery; Visit Provider Orthopaedic Surgery
PROC: 0SRD0J9 Replacement of Left Knee Joint with Synthetic Substitute, Cemented, Open Approach (ICD-10-PCS; principal; 2022-07-07 10:45)
DX: T84.033A Mechanical loosening of internal left knee prosthetic joint, initial encounter (principal); M17.12 Unilateral primary osteoarthritis, left knee; M23.42 Loose body in knee, left knee; F41.9 Anxiety disorder, unspecified; E07.9 Disorder of thyroid, unspecified; I10 Essential (primary) hypertension; Z20.822 Contact with and (suspected) exposure to COVID-19; Z96.652 Presence of left artificial knee joint
CPT/HCPCS: 36415; 73560; 82962; 85014; 85018; 87070; 87075; 87205; 87635; 87801; 97161; C1776; C9803; C9290; J0171; J0690; J1100; J2250; J2405; J2704; J3010

== ENCOUNTER → 2022-12-08 11:42 | Outpatient (CLI) | payer MEDICARE, OTHER, SELFPAY ==
[2022-07-07 16:04] VITALS: BMI 29.4
--- NOTE | 2022-12-08 11:44 | DI.MG.S_ITS ---
BILATERAL DIGITAL SCREENING MAMMOGRAM 3D/2D WITH CAD: 12/08/2022 CLINICAL: Routine screening. Family history of breast cancer. Breast cancer. Comparison is made to exams dated: 11/26/2021 mammogram, 05/26/2021 mammogram, 11/25/2020 mammogram, and 11/02/2020 mammogram - [facility]. There are scattered areas of fibroglandular density in both breasts (category b / 25%-50% glandular tissue). Current study was also evaluated with a Computer Aided Detection (CAD) system. There is a benign calcification in the left breast. There also are benign post operative findings in the left breast. No significant masses, calcifications, or other findings are seen in either breast. There has been no significant interval change. IMPRESSION: BENIGN There is no mammographic evidence of malignancy. A 1 year screening mammogram is recommended. This exam was interpreted at Station ID: [id number]. NOTE: For mammograms, a report in lay terms will be sent to the patient. Approximately 15% of breast malignancies will not be visualized mammographically. In the management of a palpable breast mass, a negative mammogram must not discourage biopsy of a clinically suspicious lesion. Electronically Signed By: Cristal bear/huber:12/08/2022 16:21:43 letter sent: Normal Exam ACR BI-RADS Category 2: Benign Finding(s) 3342F
== END ==
PROVIDERS: PCP Physician Assistant; Referring Provider Physician Assistant; Visit Provider Physician Assistant
DX: Z12.31 Encounter for screening mammogram for malignant neoplasm of breast (principal); Z85.3 Personal history of malignant neoplasm of breast; Z80.3 Family history of malignant neoplasm of breast
CPT/HCPCS: 77063; 77067

== ENCOUNTER → 2023-03-09 15:00 | Outpatient (CLI) | payer MEDICARE, OTHER, SELFPAY ==
[2022-07-07 16:04] VITALS: BMI 29.4
[2023-03-09 16:06] LABS: BUN Creatinine Ratio 20.7 (6-22); Blood Urea Nitrogen 17 mg/dL (7-17); Calcium 9.6 mg/dL (8.4-10.2); Carbon Dioxide 27 mmol/L (22-32); Chloride 103 mmol/L (98-107); Estimated Glomerular Filt Rate > 60 mL/min (>60); Glucose 93 mg/dL (80-110); HEMOLYSIS < 15 (0-50); Potassium 4.5 mmol/L (3.4-5.1); Sodium 136 mmol/L (137-145)
== END ==
PROVIDERS: PCP Physician Assistant; Referring Provider Internal Medicine Cardiovascular Disease; Visit Provider Internal Medicine Cardiovascular Disease
DX: I10 Essential (primary) hypertension (principal)
CPT/HCPCS: 36415; 80048

== ENCOUNTER 2023-08-03 10:20 | Emergency (ER) | payer MEDICARE, OTHER, SELFPAY ==
[2022-07-07 16:04] VITALS: BMI 29.4
[2023-08-03] VITALS (8 sets, daily range): BP systolic 165–181; BP diastolic 88–102; PULSE 61–71; RESP 17; TEMP 36.7; O2SAT 92–99
--- NOTE | 2023-08-03 11:00 | ED.FALL ---
HPI - Fall General Chief Complaint: Fall Stated Complaint: FELL T-1 Time Seen by Provider: 08/03/23 11:00 Source: patient Mode of arrival: Family Vehicle History of Present Illness HPI Narrative: 82-year-old woman with a history of hypertension, hypothyroidism, depression who presents after experiencing a mechanical fall last night hitting the edge of a stool on the right side of her face with some well swelling around the eye. Some minor swelling of the dorsum of the right hand. She has having no visual complaints, no headache, neck pain. She has full range of motion at the hand in the wrist. No tenderness at the right elbow. There is a minor minor contusion and no limited range of motion of the left elbow. She is looking for reassurance is that she did not break any bones in her hand or around her eye. She has not on blood thinners Related Data Home Medications Medication Instructions Recorded Confirmed alprazolam 0.25 mg tablet 0.25 mg PO BEDTIME PRN Anxiety ##0 09/28/08 07/07/22 citalopram 20 mg tablet 20 mg PO DAILY ##0 09/28/08 07/07/22 diltiazem HCl 120 mg 120 mg PO DAILY ##0 06/30/16 07/07/22 capsule,extended release 24 hr calcium carbonate 600 mg-vitamin 1 tab PO DAILY 03/27/19 07/07/22 D3 20 mcg (800 unit) chewable tablet (Caltrate 600 plus D) cholecalciferol (vitamin D3) 50 2,000 unit PO DAILY 03/27/19 07/07/22 mcg (2,000 unit) tablet (Vitamin D3) cyanocobalamin (vitamin B-12) 1,000 mcg PO DAILY 03/27/19 07/07/22 1,000 mcg tablet (Vitamin B-12) irbesartan 300 mg tablet 300 mg PO DAILY 03/27/19 07/07/22 levothyroxine 50 mcg tablet 50 mcg PO DAILY 03/27/19 07/07/22 oscfmbtv-[id number]-hjxtz acid 0.4 1 tab PO DAILY 03/27/19 07/07/22 mg-lycopene 300 mcg-lutein 250 mcg tablet (Centrum Silver) nitroglycerin 0.4 mg sublingual 0.4 mg sublingual PRN PRN Chest 03/27/19 07/02/22 tablet (Nitrostat) Pain acetaminophen 500 mg capsule 1,000 mg PO Q6H PRN Pain 07/02/22 07/02/22 Previous Rx's Medication Instructions Recorded aspirin 81 mg tablet,delayed 81 mg PO BID #90 tabs 07/08/22 release docusate sodium 100 mg capsule 100 mg PO BID PRN constipation #60 07/08/22 caps ondansetron 4 mg disintegrating 4 mg PO Q4HR PRN Nausea And 07/08/22 tablet Vomiting #30 tabs oxycodone 5 mg tablet 5 mg PO Q4-6H PRN Pain, Moderate 07/08/22 (4-6) #50 tabs Allergies Allergy/AdvReac Type Severity Reaction Status Date / Time Sulfa (Sulfonamide Allergy Severe rash Verified 07/07/22 09:14 Antibiotics) [SULFA (SULFONAMIDE ANTIBIOTICS)] lisinopril [LISINOPRIL] AdvReac Intermediate Cough Verified 07/07/22 09:14 Review of Systems Review of Systems Narrative: Pertinent positive and negative findings as per HPI Patient History Medical History (Updated 08/03/23 @ 12:50 by Sherley Valero MD) 1st degree AV block History of COVID-19 (03/2022) Anxiety Melanoma Osteoarthritis GERD (gastroesophageal reflux disease) Thyroid disorder HTN (hypertension) Vertigo Surgical History (Updated 07/08/22 @ 07:37 by Orquidea Reynolds PA-C) Hx of bilateral cataract extraction Hx of hernia repair Hx of repair of right rotator cuff History of lumpectomy of left breast History of left nephrectomy (1984) History of partial hysterectomy S/P left unicompartmental knee replacement (01/23/21) Social History household members: spouse Smoking Status: Never smoker alcohol intake: current Smoking Status: Never smoker alcohol intake frequency: 0-2 drinks per day Substance Use Type: does not use Exam Initial Vital Signs Initial Vital Signs: Vital Signs Pulse Rate 71 08/03/23 10:34 Pulse Oximetry 92 08/03/23 10:34 General: Contusion around the right eye but, in no acute distress. Able to give a complete and coherent history. Well-nourished well-developed HEENT: Moist mucous membranes, normal sclera with reactive pupils, no tenderness over his scalp. She is able to open the right eye does not have tenderness along the orbital rim or over the malar ridge. No dental malocclusion appreciated. Neck: No midline cervical spine tenderness Respiratory: Lungs are clear to auscultation, no wheezing no rales no rhonchi. Full and symmetrical air movement, no tenderness to compression of the chest Cardiac: Regular rate and rhythm no murmurs no bruits Abdomen: Soft, nontender, good bowel tones, no flank pain Skin: Warm and dry, no rashes Neurologic: Grossly neurologically intact with no obvious asymmetries or abnormalities Extremities: Her right hand has some swelling to the dorsum of the hand range of motion is preserved through the wrist hand and fingers. Minor contusion to the left elbow. Psych: Cooperative, appropriate insight and affect Course Orders Ordered: ED Orders 08/03/23 11:08 CT head/brain wo con Stat CT orbit BI wo con Stat XR hand RT min 3V Stat Vital Signs Vital signs: Vital Signs - 8 hr 08/03/23 10:34 08/03/23 10:35 08/03/23 10:35 Temperature Pulse Rate 71 71 Respiratory Rate Blood Pressure 169/102 H Pulse Oximetry 92 92 Oxygen Delivery Method 08/03/23 10:39 08/03/23 11:00 08/03/23 11:00 Temperature 98.0 F Pulse Rate 66 70 Respiratory Rate 17 Blood Pressure 169/102 H 165/88 H Pulse Oximetry 99 95 Oxygen Delivery Method Room Air 08/03/23 11:30 Temperature Pulse Rate 62 Respiratory Rate Blood Pressure Pulse Oximetry 97 Oxygen Delivery Method MDM - Fall MDM Narrative Medical decision making narrative: CC: Mechanical fall Complicating co-morbidities: Hypothyroidism Data collected from: patient, friend and neighbor Medical records reviewed: Discharge summary after an episode of atypical chest pain in October of 2021 is reviewed Differential considered: Fractures, contusions Exam documented above, pertinent findings include: She has some swelling around the right eye. No subconjunctival hemorrhage. No visual field deficits, no visual changes. No restrictions to extraocular eye movements and pupillary reflexes are appropriate. Some minor swelling to the dorsum of the right hand, neurovascularly intact. Minor bruise to the left elbow Imaging studies independently reviewed: CT scan of the head is unremarkable CT scan of the orbits shows no orbital injury and the periorbital edema is consistent with her clinical exam Right hand has no bony abnormalities Discussion: 82-year-old woman with a mechanical fall yesterday. Bruising to the right eye and contusion to the right hand. No intracranial bleeding, no periorbital injury and no hand fractures. Discussed use of Tylenol for pain control. Reassurance is given and she is safe for discharge home Discharge Plan Departure Patient Disposition: Home Clinical Impression: Contusion of periorbital region, right Qualifiers: Encounter type: initial encounter Qualified Code(s): S05.11XA - Contusion of eyeball and orbital tissues, right eye, initial encounter Contusion of hand Qualifiers: Encounter type: initial encounter Laterality: right Qualified Code(s): S60.221A - Contusion of right hand, initial encounter Instructions: DI for Eye Contusion Activity Restrictions/Additional Instructions: Thank you for coming in today You did not break any bones. Your eye socket as well as your brain all look nice and normal. There was no broken bones in your hand. It is going to take a couple of weeks for the bruising to entirely heal You can use ice as well as Tylenol to help with pain Please do take care to prevent falls, I am glad you did not have any worsening injuries today Prescriptions: No Action alprazolam 0.25 mg Tablet 0.25 mg PO BEDTIME PRN (Reason: Anxiety) Qty: 0 citalopram 20 mg Tablet 20 mg PO DAILY Qty: 0 diltiazem HCl 120 MG capsule,extended release 24hr 120 mg PO DAILY Qty: 0 levothyroxine 50 mcg tablet 50 mcg PO DAILY irbesartan 300 mg tablet 300 mg PO DAILY nitroglycerin [Nitrostat] 0.4 mg Tablet, Sublingual 0.4 mg sublingual PRN PRN (Reason: Chest Pain) Centrum Silver 0.4-300-250 mg-mcg-mcg Tablet 1 tab PO DAILY cyanocobalamin (vitamin B-12) [Vitamin B-12] 1,000 mcg Tablet 1,000 mcg PO DAILY Patient Comments: sublingual cholecalciferol (vitamin D3) [Vitamin D3] 2,000 unit Tablet 2,000 unit PO DAILY Caltrate 600 plus D 600 mg (1,500 mg)-800 unit Tablet,Chewable 1 tab PO DAILY acetaminophen 500 mg Capsule 1,000 mg PO Q6H PRN (Reason: Pain) aspirin 81 mg Tablet,Delayed Release (Dr/Ec) 81 mg PO BID Qty: 90 0RF docusate sodium 100 mg Capsule 100 mg PO BID PRN (Reason: constipation) Qty: 60 1RF ondansetron 4 mg Tablet,Disintegrating 4 mg PO Q4HR PRN (Reason: Nausea And Vomiting) Qty: 30 0RF oxycodone 5 mg Tablet 5 mg PO Q4-6H PRN (Reason: Pain, Moderate (4-6)) Qty: 50 0RF Referrals: Hannah Zimmer PA-C [Primary Care Provider] - Stand Alone Forms: Patient Portal/API
--- NOTE | 2023-08-03 11:08 | DI.RAD.S_ITS ---
PROCEDURE: XR HAND RT MIN 3V INDICATIONS: trauma TECHNIQUE: 3 views of the hand(s) acquired. COMPARISON: [facility], , HAND 2V RIGHT, 06/09/2006, 9:13. FINDINGS: Bones: No fractures or dislocations. Carpal bones are normally aligned. No suspicious bony lesions. Moderate to severe degenerative arthritis at the 1st carpometacarpal joint. Soft tissues: No suspicious soft tissue calcifications. IMPRESSION: No acute bony abnormality. 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 Dictated by: Robert Patel M.D. on 08/03/2023 at 12:07 Approved by: Robert Patel M.D. on 08/03/2023 at 12:11
--- NOTE | 2023-08-03 11:08 | DI.CT.S_ITS ---
PROCEDURE: CT ORBIT BI WO CON INDICATIONS: fall TECHNIQUE: Noncontrast 2.5 mm axial images acquired through the orbits, with coronal and sagittal reformats. For radiation dose reduction, the following was used: automated exposure control, adjustment of mA and/or kV according to patient size. COMPARISON: None. FINDINGS: Image quality: Excellent. Orbits: Globes are symmetrical. No metallic foreign bodies. The optic nerves are normal in size. No retrobulbar masses or fat abnormalities. The extra-ocular muscles are normal and symmetrical in appearance. Lacrimal glands are normal in size. Optic chiasm is normal. Intracranial: Visualized portions of the cerebral hemispheres, brainstem, and spinal cord are normal. Bones and sinuses: Right periorbital edema. Visualized calvarium and facial bones appear intact. Visualized sinuses and mastoids are clear. IMPRESSION: Right periorbital edema. Otherwise unremarkable CT of the orbits. Intact bony orbits and globes. Dictated by: Robert Patel M.D. on 08/03/2023 at 11:53 Approved by: Robert Patel M.D. on 08/03/2023 at 11:55
--- NOTE | 2023-08-03 11:08 | DI.CT.S_ITS ---
PROCEDURE: CT HEAD/BRAIN WO CON INDICATIONS: fall TECHNIQUE: Noncontrast 4.5 mm thick angled axial sections acquired from the foramen magnum to the vertex, with coronal and sagittal reformats. For radiation dose reduction, the following was used: automated exposure control, adjustment of mA and/or kV according to patient size. COMPARISON: [facility], CT, CT HEAD/BRAIN WO CON, 03/27/2019, 13:50. FINDINGS: Image quality: Diagnostic. CSF spaces: Basal cisterns are patent. No extra-axial fluid collections. The ventricles are symmetric in size and shape. Brain: No intracranial bleeds or masses. There is cerebral volume loss for age, with resultant ventricular and sulcal prominence. There are mild, age-appropriate periventricular and deep white matter chronic small vessel ischemic changes. There is intracranial internal carotid artery atherosclerosis. Skull and face: Calvarium and visualized facial bones appear intact, without suspicious lesions. Sinuses: Visualized sinuses and mastoids are clear. IMPRESSION: No acute intracranial pathology. Dictated by: Robert Patel M.D. on 08/03/2023 at 11:52 Approved by: Robert Patel M.D. on 08/03/2023 at 11:53
== END 2023-08-03 13:06 | disposition home or self-care (01) ==
PROVIDERS: Emergency Provider Emergency Medicine; PCP Physician Assistant
DX: S00.11XA Contusion of right eyelid and periocular area, initial encounter (principal); S60.221A Contusion of right hand, initial encounter; W18.30XA Fall on same level, unspecified, initial encounter
CPT/HCPCS: 70450; 70480; 73130; 99281; 99284

== ENCOUNTER → 2023-09-07 12:36 | Outpatient (CLI) | payer MEDICARE, OTHER, SELFPAY ==
[2022-07-07 16:04] VITALS: BMI 29.4
--- NOTE | 2023-09-07 12:39 | DI.RAD.S_ITS ---
PROCEDURE: XR KNEE RT 4V INDICATIONS: KNEE PAIN TECHNIQUE: 4 views of the knee were acquired. COMPARISON: [facility], CR, XR KNEE LT 1TO2V, 07/07/2022, 14:32. [facility], CR, XR KNEE LT 3V, 11/04/2021, 11:19. FINDINGS: Bones: No fractures or dislocations. No suspicious bony lesions. Tricompartmental osteophytosis. Moderate joint space narrowing at the medial compartment. Soft tissues: Trace joint effusion. No suspicious soft tissue calcifications. IMPRESSION: Moderate right knee DJD most pronounced at the medial compartment. Findings progressed compared to 2021. Dictated by: Jose Bolaños M.D. on 09/07/2023 at 22:04 Approved by: Jose Bolaños M.D. on 09/07/2023 at 22:08
== END ==
LOC: RAD 12:38
PROVIDERS: PCP Physician Assistant; Referring Provider Physician Assistant; Visit Provider Physician Assistant
DX: M17.11 Unilateral primary osteoarthritis, right knee (principal); M25.561 Pain in right knee
CPT/HCPCS: 73564

== ENCOUNTER → 2023-11-26 13:53 | Outpatient (CLI) | payer MEDICARE, OTHER, SELFPAY ==
[2022-07-07 16:04] VITALS: BMI 29.4
--- NOTE | 2023-11-26 13:57 | EKG_ITS ---
[place] [place] [id number] [place] [address] Test Date: 2023-11-26 Pat Name: Dia Tran Department: Room: Gender: Female Reconstructive Surgeon: : 1940 Requested By: Order Number: [id number] Reading MD: Raymond Funez Measurements Intervals [place] Rate: 55 P: 59 OK: 226 QRS: 4 QRSD: 84 T: 21 QT: 440 QTc: 420 Interpretive Statements Sinus bradycardia with 1st degree AV block with premature atrial complexes in a pattern of bigeminy Electronically Signed On 11-26-2023 18:03:50 PDT by Raymond Funez
[2023-11-26 15:33] LABS: Add Manual Diff / Slide Review NO; Basophils Absolute Auto 0 /uL (0-100); Basophils Percent Auto 0.5 % (0-2); Eosinophils Absolute Auto 0 /uL (0-450); Eosinophils Percent Auto 0.8 % (2-4); Hematocrit 39.3 % (36-46); Hemoglobin 12.8 g/dL (12.0-16.0); Lymphocytes Absolute Auto 1700 /uL (1100-4500); Mean Corpuscular HGB Conc 32.6 % (30-36); Mean Corpuscular Hemoglobin 29.1 PG (26-34); Mean Corpuscular Volume 89.3 fL (80-100); Monocytes Absolute Auto 500 /uL (0-900); Monocytes Percent Auto 8.8 % (3-14); Neutrophils Absolute Auto 3500 /uL (1500-7000); Neutrophils Percent Auto 60.9 % (50-75); Platelet Count 293 X10^3/uL (150-400); Red Blood Cell Count 4.41 X10^6/uL (4.0-5.2); Red Cell Distribution Width 15.6 % (11.6-14.8); White Blood Cell Count 5.7 X10^3/uL (4.5-11.0)
[2023-11-26 16:31] LABS: Blood Urea Nitrogen 15 mg/dL (7-17); Calcium 9.4 mg/dL (8.4-10.2); Carbon Dioxide 24 mmol/L (22-32); Chloride 104 mmol/L (98-107); Estimated Glomerular Filt Rate > 60 mL/min (>60); Glucose 88 mg/dL (80-110); HEMOLYSIS < 15 (0-50); Potassium 4.7 mmol/L (3.4-5.1); Sodium 136 mmol/L (137-145)
[2023-11-26 17:09] LABS: Hemoglobin A1C% w Est Avg Glu 5.7 % (4.0-6.0)
== END ==
PROVIDERS: PCP Physician Assistant; Referring Provider Orthopaedic Surgery; Visit Provider Orthopaedic Surgery
DX: Z01.818 Encounter for other preprocedural examination (principal); R73.9 Hyperglycemia, unspecified; Z01.812 Encounter for preprocedural laboratory examination; N39.0 Urinary tract infection, site not specified
CPT/HCPCS: 36415; 80048; 83036; 85025; 93005

== ENCOUNTER → 2023-11-27 10:53 | Outpatient (CLI) | payer MEDICARE, OTHER, SELFPAY ==
[2022-07-07 16:04] VITALS: BMI 29.4
[2023-11-27 11:37] LABS: Appearance Urine UA CLEAR; Bilirubin Urine UA NEGATIVE (NEGATIVE); Color Urine UA YELLOW; Glucose Urine UA NEGATIVE (Negative); Ketones Urine UA NEGATIVE (NEGATIVE); Leukocyte Esterase Urine UA NEGATIVE (NEGATIVE); Nitrite Urine UA NEGATIVE (Negative); Occult Blood Urine UA NEGATIVE (Negative); Protein Urine UA NEGATIVE (Negative); Specific Gravity Urine UA 1.015 (1.000-1.035); Urobilinogen Urine UA 0.2 E.U./dL (0.2)
[2023-11-27 11:48] LABS: Bacteria Urine None Seen; Culture Indicated Urine Cult Not Indicated; RBC Urine None Seen (0-5/HPF); Squamous Epithelial Cell Urine None Seen (0-5/HPF); Urine Volume 10mL (spun); WBC Urine 0-1/HPF (0-5/HPF)
== END ==
PROVIDERS: PCP Physician Assistant; Referring Provider Orthopaedic Surgery; Visit Provider Orthopaedic Surgery
DX: N39.0 Urinary tract infection, site not specified (principal)
CPT/HCPCS: 81001

== ENCOUNTER → 2023-12-13 11:50 | Outpatient (CLI) | payer MEDICARE, OTHER, SELFPAY ==
[2022-07-07 16:04] VITALS: BMI 29.4
--- NOTE | 2023-12-13 11:52 | DI.MG.S_ITS ---
BILATERAL DIGITAL SCREENING MAMMOGRAM 3D/2D WITH CAD POST LUMPECTOMY: 12/13/2023 CLINICAL: Routine screening. Personal history of left breast cancer. Family history of Breast Cancer. Comparison is made to exams dated: 12/08/2022 mammogram, 11/26/2021 mammogram, 11/02/2020 mammogram, 05/26/2021 mammogram, 10/20/2019 mammogram, and 09/21/2018 mammogram - [facility]. There are scattered areas of fibroglandular density (category b / 25%-50% glandular tissue). Current study was also evaluated with a Computer Aided Detection (CAD) system. There are benign post operative findings in the left breast. No significant masses, calcifications, or other findings are seen in either breast. There has been no significant interval change. IMPRESSION: BENIGN There is no mammographic evidence of malignancy. A 1 year screening mammogram is recommended. This exam was interpreted at Station ID: [id number]. NOTE: For mammograms, a report in lay terms will be sent to the patient. Approximately 15% of breast malignancies will not be visualized mammographically. In the management of a palpable breast mass, a negative mammogram must not discourage biopsy of a clinically suspicious lesion. Electronically Signed By: Winnie Fernandes M.D., Ph.D. mindy/huber:12/15/2023 10:06:05 letter sent: Normal Exam ACR BI-RADS Category 2: Benign
== END ==
LOC: MAMMO 11:51
PROVIDERS: PCP Physician Assistant; Referring Provider Physician Assistant; Visit Provider Physician Assistant
DX: Z12.31 Encounter for screening mammogram for malignant neoplasm of breast (principal); Z85.3 Personal history of malignant neoplasm of breast; Z80.3 Family history of malignant neoplasm of breast
CPT/HCPCS: 77063; 77067

== ENCOUNTER 2024-01-04 11:28 | Day surgery (SDC) | payer MEDICARE, OTHER, SELFPAY ==
[2022-07-07 16:04] VITALS: BMI 29.4
[2023-12-28 09:40] VITALS: BMI 29.9
[2024-01-04] VITALS (8 sets, daily range): BP systolic 132–166; BP diastolic 72–93; PULSE 57–86; RESP 12–18; TEMP 36.2–37.1; O2SAT 94–100; BMI 29.9
--- NOTE | 2024-01-04 06:00 | DI.RAD.S_ITS ---
PROCEDURE: XR KNEE RT 1TO2V INDICATIONS: TKA TECHNIQUE: 2 view(s) of the knee acquired. COMPARISON: [facility], , XR KNEE RT 4V, 09/07/2023, 12:02. FINDINGS: Bones: Patient is status post knee joint arthroplasty. Hardware components are in expected positions. Visualized bony structures are intact. Soft tissues: Overlying postoperative changes are noted. IMPRESSION: Expected immediate postoperative appearance, status post total right knee arthroplasty. Dictated by: Robert Patel M.D. on 01/04/2024 at 17:44 Approved by: Robert Patel M.D. on 01/04/2024 at 17:44
[2024-01-04] MEDS: ACETAMINOPHEN 325 MG TABLET 975 MG PO (12:18)
[2024-01-04] MEDS: CELECOXIB 200 MG CAPSULE 400 MG PO (12:19)
[2024-01-04] MEDS: LACTATED RINGERS 1,000 ML 42 ML IV (12:20)
[2024-01-04] MEDS: VANCOMYCIN 1,000 MG/200 ML PIGGYBACK 200 MG IV (13:33)
--- NOTE | 2024-01-04 14:19 | PM.PREOP ---
Pre-operative Note Interval Note History & Physical reviewed/Exam performed by Physician: Yes Changes to H&P: No
--- NOTE | 2024-01-04 14:32 | P.OP_ITS ---
Operative Date/Time/Diagnoses Date of procedure: 01/04/24 Time of procedure: 14:45 Pre-op diagnosis: right knee OA Post-op diagnosis: same Procedure & Clinicians Procedure: Right total knee arthroplasty Same procedure as scheduled: Yes Indications: The patient has had progressively worsening right knee pain with radiographic changes consistent with arthritis. Non-operative management has failed and the patient has requested total knee replacement. The risks, benefits and alternatives to surgery were discussed with the patient prior to proceeding. Risks discussed included, but were not limited to, failure to relieve pain, stiffness, infection, nerve damage, deep venous thrombosis, pulmonary embolism, stroke, coma, heart attack, permanent paralysis and , as well as the potential need for eventual revision of the prosthetic. Surgeon: Paris Maldonado Microwave Remote Sensing Scientist: Vladimir Mary Anesthesia Type: General and Peripheral nerve block Operative Notes Findings: Severe right knee OA, adequate bone, adequate stability Closure Type: primary Specimen(s): none sent Prosthetic devices, grafts, tissues, transplants, or devices: Maldonado and nephrenetta lucero BCS2 size 5 femur, size 4 tibia, +9 poly, 32 x 7-1/2 mm patella Estimated Blood Loss (mL): 250 Blood products transfused: none Tourniquet time (min): 87 Procedure in detail: The patient was seen in the pre-operative area, where the patient identified the right knee as the operative site and this was marked with my initials. The patient received pre-operative antibiotics, and was taken to the operating room and placed on the operative table in the supine position. After satisfactory anesthesia, a motel food service supervisor out was performed. The right leg was encircled with a tourniquet about the proximal thigh, and the leg was prepared from the toes to the tourniquet with ChloroPrep in the usual fashion and draped through sterile drapes. The leg was elevated and exsanguinated with Eschmark bandage and the tourniquet inflated to [250] mmHg pressure. A PA was used during the procedure was essential for intraoperative retraction and safe implantation of the components. The knee was approached through an approximately 18 cm incision centered over the patella and carried into the knee through a medial parapatellar arthrotomy. Portion of the medial and lateral meniscus was resected. Soft tissue was carefully mobilized around the patella the patella was measured with a caliper. Bone was resected from the patella and the patellar height was reconstituted with up an appropriate sized patellar component. A cover was then placed on the patella. A small amount of additional medial and lateral meniscus was resected. Cori pins were placed in the femur and a guide was pinned to the tibia for robotic assisted navigation. A careful plan was taken and defined. Patient was placed her range of motion testing stability and overall alignment. The Cori robotic bur was used for the distal femoral resection. It looked like an appropriate distal femoral cut and the cut was made without difficulty. The rotation was assessed and the appropriate size femoral guide was placed on the distal femur and finishing cuts were made. There was no evidence of notching. The anterior, posterior and chamfer cuts were then made. The posterior osteophytes and soft tissues were then removed. The posterior capsule was injected with part of a mixture of 60 ml 0.25% Marcaine mixed with 20 ml Exparel for post operative pain control. The remainder of this mixture was injected into the capsule and subcutaneous tissues during cement curing. The tibial guide was meticulously navigated in order to optimize the cut. Cut was made without difficulty. The rotation was assessed. The patient was placed in extension residual medial and lateral meniscus as well as any residual bone was carefully resected. [No] additional tibia was resected. Hemostasis was achieved especially posteriorly. Additional local was injected in the posterior capsule. The extension gap was assessed. The femoral component trial was placed and the notch was finished. Trial tibial and femoral components were then placed and the knee placed through a range of motion. Range of motion was [0- 130], with good stability throughout the range. The trials were then removed, and the tibia was finished. The bone was prepared with pulsatile lavage, and dried with a sponge. Cement was applied and the final prosthetics placed. Excess cement was removed during and after cement curing. A brief Betadine soak was performed. After confirming there was no extruded shayne ent posteriorly, the final tibial insert was placed. The knee was copiously irrigated and the tourniquet deflated. Hemostasis was obtained with the Bovie cautery. The capsule was closed with interrupted # 1 Vicryl suture. The subcutaneous layer was closed with barbed sutures, and the skin with a running 3-0 V-Lock suture and skin angela. An Aquacel Ag dressing was applied and the patient was taken to recovery having tolerated the procedure well. Complications: none Post-operative Condition: stable Disposition: Acute Care Plan for aftercare: The patient will be maintained on a standard total knee replacement protocol with weight bearing as tolerated. The patient will receive aspirin and sequential compression devices for DVT prophylaxis. The patient will be discharged home when safe for the home environment.
[2024-01-04] MEDS: CEFAZOLIN 2 GM/100 ML PREMIX 100 ML IV ×2 (14:45→22:30)
[2024-01-04] MEDS: TRANEXAMIC ACID 1,000 MG VIAL 1000 MG INJ ×2 (14:59→16:35)
[2024-01-04] MEDS: BUPIVACAINE 0.25% (PF) 60 ML, EPINEPHrine 0.3 MG INJ (15:26)
[2024-01-04] MEDS: BUPIVACAINE LIPOSOME 266 MG/20 ML VIAL INJ (15:26)
[2024-01-04] MEDS: LACTATED RINGERS 1,000 ML 100 ML IV (18:18)
[2024-01-04] MEDS: ONDANSETRON 4 MG/2 ML INJ IV (18:18)
[2024-01-04] MEDS: OXYCODONE IR 5 MG TABLET PO (20:24)
[2024-01-04] MEDS: ASPIRIN EC 81 MG TABLET PO (20:24)
[2024-01-04] MEDS: DOCUSATE 100 MG CAPSULE PO (20:24)
[2024-01-05] VITALS: BP 140/83; PULSE 86; RESP 17; TEMP 37; O2SAT 96
[2024-01-05] MEDS: OXYCODONE IR 5 MG TABLET PO ×3 (01:13→15:18)
[2024-01-05 05:37] LABS: Hematocrit 36.9 % (36-46); Hemoglobin 11.9 g/dL (12.0-16.0)
[2024-01-05] MEDS: LEVOTHYROXINE 50 MCG TABLET PO (06:11)
[2024-01-05] MEDS: CEFAZOLIN 2 GM/100 ML PREMIX 100 ML IV (06:11)
--- NOTE | 2024-01-05 07:47 | P.DS_ITS ---
History of Present Illness History of Present Illness Date Patient Seen: 01/05/24 Time Patient Seen: 07:47 Chief complaint: SDC Narrative: The patient has had progressively worsening right knee pain with radiographic changes consistent with arthritis. Non-operative management has failed and the patient has requested total knee replacement. The risks, benefits and alternatives to surgery were discussed with the patient prior to proceeding. Risks discussed included, but were not limited to, failure to relieve pain, stiffness, infection, nerve damage, deep venous thrombosis, pulmonary embolism, stroke, coma, heart attack, permanent paralysis and , as well as the potential need for eventual revision of the prosthetic. Discharge Providers Provider Discharge Date: 01/05/24 Primary care physician: Hannah Zimmer PA-C Consults: 01/04/24 06:00 Consult to Anesthesiology Routine Comment: Consulting Provider: Anesthesiologist Reason for consultation: Regional block for post operative pain control 01/04/24 17:38 Consult to Discharge Planning Routine Comment: Consult to Occupational Therapy Evaluate & Treat Comment: Physician Instructions: Evaluate and treat Consult to Physical Therapy Evaluate & Treat Comment: Physician Instructions: postop TKA protocol Discharge provider: Vladimir Mary PA-C Summary Hospital Course Discharge Diagnosis: right knee OA Hospital Course: Procedure & Clinicians Procedure: Right total knee arthroplasty Same procedure as scheduled: Yes Surgeon: Paris Maldonado Card Runner: Vladimir Mary Anesthesia Type: General and Peripheral nerve block Operative Notes Findings: Severe right knee OA, adequate bone, adequate stability Closure Type: primary Specimen(s): none sent Prosthetic devices, grafts, tissues, transplants, or devices: Maldonado and nephew journey BCS2 size 5 femur, size 4 tibia, +9 poly, 32 x 7-1/2 mm patella Estimated Blood Loss (mL): 250 Blood products transfused: none Tourniquet time (min): 87 Status at Discharge Cognitive/behavioral status at discharge: oriented Functional status at discharge: uses cane/walker Overall status at discharge: patient is back to baseline Time Spent with Patient Time spent: Less than 30 minutes Exam Vital Signs (past 8 hours): - 01/05/24 00:00 Temperature 98.6 F Pulse Rate 86 Respiratory Rate 17 Blood Pressure 140/83 Pulse Oximetry 96 Oxygen Flow Rate 0 Oxygen Delivery Method Room Air Oxygen Flow Rate 0 Narrative Exam Narrative: Pain controlled with oral medications. Mild soreness at surgical site. No new numbness or tingling down either lower extremity. 5/5 strength in hip flexors, quadriceps, hamstrings, DF, PF, EHL bilaterally. Sensation to light touch intact throughout BLE. Calves soft, compressible, nontender. Dressing placed intraoperatively CDI. Resp Effort & Inspection: normal respiratory effort and able to speak in complete sentences Objective Labs 01/05/24 05:19 Labs: Laboratory Results - last 24 hr 01/05/24 05:19 Hgb 11.9 L Hct 36.9 PFSH Medical History (Updated 08/18/23 @ 00:00 by ) 1st degree AV block History of COVID-19 (03/2022) Anxiety Melanoma Osteoarthritis GERD (gastroesophageal reflux disease) Thyroid disorder HTN (hypertension) Vertigo Surgical History (Updated 12/28/23 @ 10:24 by Ella Batres RN) History of total left knee replacement (2022) Hx of bilateral cataract extraction Hx of hernia repair Hx of repair of right rotator cuff History of lumpectomy of left breast History of left nephrectomy (1984) History of partial hysterectomy S/P left unicompartmental knee replacement (01/23/21) Social History household members: spouse Smoking Status: Never smoker alcohol intake: current Discharge Assessment & Plan Assessment and Plan Assessment: Status post right knee total arthroplasty. Plan of Treatment: Discharge to home. Aspirin 81 mg twice a day for DVT prophylaxis for 6 weeks. Multimodal pain control baseline with meloxicam 15 mg daily and acetaminophen 500 mg q.4 hours as needed for pain. Patient has been prescribed oxycodone 5 mg take 1 tablet every 4 as needed for breakthrough pain. Attend physical therapy within the next 5-10 days. Follow up in clinic in 2 weeks for wound check. Discharge Plan Discharge Plan Patient Disposition: Home Discharge orders & Medications Discharge Orders: Discharge (Order); Ordered 01/05/24 Ordered By: Vladimir Mary Prescriptions: Continued alprazolam 0.25 mg Tablet 0.25 mg PO BEDTIME PRN (Reason: Anxiety) Qty: 0 citalopram 20 mg Tablet 20 mg PO DAILY Qty: 0 levothyroxine 50 mcg tablet 50 mcg PO DAILY irbesartan 300 mg tablet 300 mg PO DAILY nitroglycerin [Nitrostat] 0.4 mg Tablet, Sublingual 0.4 mg sublingual PRN PRN (Reason: Chest Pain) Centrum Silver 0.4-300-250 mg-mcg-mcg Tablet 1 tab PO DAILY cyanocobalamin (vitamin B-12) [Vitamin B-12] 1,000 mcg Tablet 1,000 mcg PO DAILY Patient Comments: sublingual Caltrate 600 plus D 600 mg (1,500 mg)-800 unit Tablet,Chewable 1 tab PO DAILY metoprolol succinate 100 mg tablet extended release 24 hr 100 mg PO DAILY amlodipine 2.5 mg tablet 2.5 mg PO DAILY pantoprazole 40 mg Tablet,Delayed Release (Dr/Ec) 40 mg PO DAILY acetaminophen 500 mg Capsule 1,000 mg PO Q6H PRN (Reason: Pain) ondansetron 4 mg Tablet,Disintegrating 4 mg PO Q4HR PRN (Reason: Nausea And Vomiting) Qty: 30 0RF Follow up/Referrals: Vladimir Mary PA-C [Advanced Waste/Materials Exchange Specialist] - 01/14/24 9:30 am (appt:01/13 @ 9:30 with [facility] Hannah Zimmer PA-C [Primary Care Provider] - Diet/Activity/Treatments Diet: Diet as Tolerated Activity: Ambulate multiple times a day. Use a cane or walker as needed. Full weight on leg. Cold/Heat Therapy: Use ice multiple times a day. Skin/Wound/Dressing Care Report to your healthcare provider any signs of infection, such as:: chills, fever, night sweats, unusual drainage and unusual redness Dressing: Leave dressing in place until follow up in office. No bathing or otherwise soaking incision. Call the office if the dressing becomes saturated inside. Visit Report/Discharge Packet Instructions: DI for Knee Replacement, DI for Prescription Opioid Use Stand Alone Forms: Patient Portal/API, Surgery Discharge Discharge Data Primary Care Provider: Hannah Zimmer Attending Provider: Paris Maldonado
[2024-01-05] MEDS: MULTIVITAMIN 1 TABLET 1 TAB PO (08:14)
[2024-01-05] MEDS: DOCUSATE 100 MG CAPSULE PO (08:14)
[2024-01-05] MEDS: PANTOPRAZOLE DR 40 MG TABLET PO (08:14)
[2024-01-05] MEDS: AMLODIPINE 5 MG TABLET 2.5 MG PO (08:14)
[2024-01-05 08:15] VITALS: BP 119/80; PULSE 62
[2024-01-05] MEDS: CYANOCOBALAMIN (VITAMIN B-12) 500 MCG TABLET 1000 MCG PO (08:15)
[2024-01-05] MEDS: CHOLECALCIFEROL (VITAMIN D3) 1,000 UNIT TABLET 1000 UNIT PO (08:15)
[2024-01-05] MEDS: CALCIUM CARBONATE 500 MG TAB PO (08:15)
[2024-01-05] MEDS: LOSARTAN 50 MG TABLET 100 MG PO (08:15)
[2024-01-05] MEDS: CITALOPRAM 10 MG TABLET 20 MG PO (08:15)
[2024-01-05] MEDS: ASPIRIN EC 81 MG TABLET PO (08:15)
[2024-01-05 08:16] VITALS: BP 119/80; PULSE 62
[2024-01-05] MEDS: METOPROLOL ER 50 MG TABLET 100 MG PO (08:16)
[2024-01-05] MEDS: ACETAMINOPHEN 325 MG TABLET 650 MG PO ×2 (08:16→14:55)
[2024-01-05] MEDS: IBUPROFEN 400 MG TABLET PO (09:19)
--- NOTE | 2024-01-05 10:25 | PT.IIE ---
Current Diagnoses Unilateral primary osteoarthritis, right knee (01/04/24) Surgery Performed Operation Date: 01/04/24 13:45 Actual Procedures p Total Knee Arthroplasty - Robot(Right) - Paris Maldonado MD Surgical History (Last Updated 12/28/23 @ 10:24 by Ella Batres, KAREN) History of left nephrectomy (1984) History of lumpectomy of left breast History of partial hysterectomy History of total left knee replacement (2022) Hx of bilateral cataract extraction Hx of hernia repair Hx of repair of right rotator cuff S/P left unicompartmental knee replacement (01/23/21) Medical History (Last Updated 07/02/22 @ 13:53 by Kesha Jordan, KAREN) 1st degree AV block Anxiety GERD (gastroesophageal reflux disease) History of COVID-19 (03/2022) HTN (hypertension) Melanoma Osteoarthritis Thyroid disorder Vertigo Physical Therapy Inpatient Evaluation/Re-Eval M1 PT/OT-IP Prior Functional Status Start: 01/05/24 13:46 Freq: NEEDED Status: Active Protocol: Document 01/05/24 10:25 AB (Rec: 01/05/24 13:57 AB [id number]) Medical Review Prior Functional Status Medical History Reviewed Yes Communication able to make needs known Mobility and Gait pt stated that she was modified independent with all mobilities and ambulation without AD but occasionally uses a SPC for uneven/outdoor ambulation Social History Household Members spouse Living Arrangements House Number of Floors (Floors) One Floor Number of Stairs To Enter/Railing? 3 steps L rail to enter the house Home Environment High Toilet,Walk in Shower Home Equipment Four Wheel Walker,Straight Cane M2 PT-IP Current Condition Start: 01/05/24 13:46 Freq: NEEDED Status: Active Protocol: Document 01/05/24 10:25 AB (Rec: 01/05/24 13:57 AB [id number]) Physical Therapy Current Condition Current Condition Evaluation Date 01/05/24 Treatment Diagnosis s/p R TKA; difficulty in walking Onset Date 01/04/24 M3 PT-IP Subjective Start: 01/05/24 13:46 Freq: NEEDED Status: Active Protocol: Document 01/05/24 10:25 AB (Rec: 01/05/24 13:57 AB [id number]) Subjective Physical Therapy Visit Type Type Initial Evaluation Visit Start Time 10:25 Visit Stop Time 11:00 Number of LINE DANCER Visits 0 Physical Therapy Visit Comments Patient Comments agreeable to do PT Therapy Pain Assessment Pain When Pain Assessed At Rest Pain Present Pain Present Pain Reported Location right knee Intensity 3 Scale Used Numeric (0 - 10) Pain Management Techniques Apply Cold,Distraction, Modification of Treatment,Re- positioning,Timing of Activity with Medications M4 PT-IP Mobility and Gait Start: 01/05/24 13:46 Freq: NEEDED Status: Active Protocol: Document 01/05/24 10:25 AB (Rec: 01/05/24 13:57 AB [id number]) PT-Bed Mobility Assessment Supine to Sit Supine to Sit Standby Assistance Sit to Supine Sit to Supine Standby Assistance PT-Transfer Assessment Sit to and From Stand Sit to and from Stand Standby Assistance,Contact Guard Assistance,1 Person Assistance,Use of Upper Extremities Equipment Transfer Assistive Device Gait Belt,Front Wheeled Walker ,4 Wheeled Walker Orthotic/Prosthetic Devices or Brace: No Transfers Transfer Destination Toilet Transfer Technique ambulated Transfer Ability Level of Assist Standby Assistance,Contact Guard Assistance,1 Person Assistance,Use of Upper Extremities Comments Mobility Comments pt sitting on EOB wtih OT. PT took over pt's care. pt agreed to do PT. obtained PLOF and home setup. pt completed sit to stand from EOB SBA and ambulated in room ~ 25 ft using FWW SBA to CGA. pt sat on EOB and completed bed mobility sit <>supine SBA. Assessed ambulation using 4WW. pt requested to use the toilet. completed sit to stand CGA and ambulated to the toilet using 4WW SBA to CGA. pt needed assist with brief/ pants management. pt completed sit to stand from the toilet using grab bar CGA and ambulated to the sink using 4WW. able to maintain standing SBA while completing handwashing. pt ambulated back to the chair using 4WW. declined stair climbing and stated that she is really tired and wants to rest. positioned pt on the chair. call light and table placed within reach. informed pt regarding caregiver training. pt stated that spouse does not like hospitals and will not come up to do training. Gait Assessment Gait Gait Assistance Required: Standby Assistance,Contact Guard Assist Distance (Feet) 25 Able to Maintain Weight Bearing Status Yes During Gait Assistive Devices Assistive Device Gait Belt,4 Wheeled Walker Orthotic/Prosthetic Devices or Brace: No Gait Deviations General Gait Pattern Antalgic,Decreased Stride Length,Decreased Feet Clearance Factors Limiting Gait Function Factors Limiting Gait Function Decreased Activity Tolerance, Decreased Strength,Difficulty Following Directions,Limited Range of Motion,Pain,Poor Balance,Poor Safety Awareness PT-Balance Assessment Sitting Balance and Reactions Static Sitting Balance Ability Good Dynamic Sitting Balance Ability Good Standing Balance and Reactions Static Standing Balance Ability Fair Dynamic Standing Balance Ability Fair Device Used FWW M5 PT-IP Objective Assessments Start: 01/05/24 13:46 Freq: NEEDED Status: Active Protocol: Document 01/05/24 10:25 AB (Rec: 01/05/24 13:57 AB [id number]) Orientation Orientation/Cognition Level of Alertness Alert Orientation Name,Place,Situation Language Function Ability No Deficits Noted Safety Awareness Decreased Safety Awareness Memory Description No Deficits Noted Strength Lower Extremity Strength Assessment Right Impaired Hip 4-/5 Knee 3+/5 Coordination Assessment Gross Coordination Gross Coordination WNL Sensation Assessment Sensation Gross Sensation WNL Muscle Tone Muscle Tone WNL Yes M6 PT-IP Treatment Start: 01/05/24 13:46 Freq: NEEDED Status: Active Protocol: Document 01/05/24 10:25 AB (Rec: 01/05/24 13:57 AB [id number]) Physical Therapy Treatment Education Education Provided Precautions,Weight Bearing Status,Post-Op Packet,Safety M7 PT-IP Assessment and Plan Start: 01/05/24 13:46 Freq: NEEDED Status: Active Protocol: Document 01/05/24 10:25 AB (Rec: 01/05/24 13:57 AB [id number]) PT Summary Assessment and Plan Potential Rehabilitation Potential Fair Status of Condition at Evaluation Evolving Summary Impairments Pain,ROM,Strength,Balance, Coordination,Sensation,Tone, Cognition,Bed Mobility, Transfers,Gait,Activity Tolerance Assessment Summary pt is an 83 y/o F s/p R TKA POD 1. pt is WBAT on RLE. pt requiring SBA to CGA with mobility using 4WW and plans to go home with spouse to assist. pt presents with decrease activity tolerance and unable to do stair climbing training this morning . pt also declined caregiver training and stated that spouse will not come up to the hospital. will assess progress. Goals Bed Mobility Goal Independent Transfer Goal Independent,Four Wheeled Walker Gait Goal Independent,Four Wheel Walker Gait Distance 200 Other Goals up/down 3 steps L rail ascending Days to Meet Goals 5 Frequency of Treatment Frequency Of Treatment Twice a Day Treatment Plan Physical Therapy Treatment Plan Bed Mobility Training,Transfer Training,Gait Training, Therapeutic Exercise,Balance Retraining,Post Op Education, Discharge Planning,Hot or Cold Pack,Neuromuscular Re-ed, Coordination Retraining,Manual Therapy Weight Bearing Status Weight Bearing Status Weight Bear as Tolerated Allowed Weight Bearing Amount (enter % RLE WBAT or #) (%) Recommendations To Nursing Amount of Assist Needed 1 Person Assist Discharge Recommendations PT Discharge Recommendations Home with Assistance, Outpatient PT Transportation Needs at Discharge Private Vehicle
--- NOTE | 2024-01-05 10:30 | OT.IP.EVAL ---
Current Diagnoses Unilateral primary osteoarthritis, right knee (01/04/24) Surgery Performed Operation Date: 01/04/24 13:45 Actual Procedures p Total Knee Arthroplasty - Robot(Right) - Paris Maldonado MD Past Medical History (Last Updated 07/02/22 @ 13:53 by Kesha Jordan, RN) 1st degree AV block Anxiety GERD (gastroesophageal reflux disease) History of COVID-19 (03/2022) HTN (hypertension) Melanoma Osteoarthritis Thyroid disorder Vertigo Surgical History (Last Updated 12/28/23 @ 10:24 by Ella Batres, KAREN) History of left nephrectomy (1984) History of lumpectomy of left breast History of partial hysterectomy History of total left knee replacement (2022) Hx of bilateral cataract extraction Hx of hernia repair Hx of repair of right rotator cuff S/P left unicompartmental knee replacement (01/23/21) Occupational Therapy Inpatient Evaluation/Re-Eval M1 PT/OT-IP Prior Functional Status Start: 01/05/24 10:35 Freq: NEEDED Status: Active Protocol: Document 01/05/24 10:35 [facility] (Rec: 01/05/24 10:51 [facility] [id number]) Medical Review Prior Functional Status Communication Independent Mobility and Gait Pt states only used a SPC in the yard and uneven surfaces. Activities of Daily Living and IADL's Pt states able to do ADL and IADL needs but had pain. Social History Household Members spouse Living Arrangements House Number of Floors (Floors) One Floor Number of Stairs To Enter/Railing? 3 steps with left rail to enter. Home Environment High Toilet,Walk in Shower,Tub /Shower Home Equipment Four Wheel Walker,Straight Cane Additional Social History Comment Pt to assist pt and has outpt PT set up. M2 OT-IP Current Condition Start: 01/05/24 10:35 Freq: Status: Active Protocol: Document 01/05/24 10:35 [facility] (Rec: 01/05/24 10:51 [facility] [id number]) Occupational Therapy Current Condition Current Condition Evaluation Date 01/05/24 Treatment Diagnosis S/P R TKA Diagnosis Onset Date 01/04/24 M3 OT- IP Subjective and Pain Start: 01/05/24 10:35 Freq: Status: Active Protocol: Document 01/05/24 10:35 [facility] (Rec: 01/05/24 10:51 [facility] [id number]) OT- Subjective Occupational Therapy Visit Type Type Initial Evaluation Visit Start Time 10:05 Visit Stop Time 10:30 Occupational Therapy Visit Comments Patient Comments Pt agreed to get dressed. Patient/Caregiver Goals TO go home. OT Pain Assessment Pain When Pain Assessed At Rest Pain Present Pain Present Pain Reported Location right knee Intensity 5 Scale Used Numeric (0 - 10) M4 OT- IP ADL's Start: 01/05/24 10:35 Freq: Status: Active Protocol: Document 01/05/24 10:35 [facility] (Rec: 01/05/24 10:51 [facility] [id number]) OT TFS-Tlkc-Lajpslj General Evaluation Self-Feeding Ability Independent OT ADL-Grooming Comments OT Grooming Comments Not performed. OT ADL-Oral Care Comments Oral Care Comments NOt performed. OT ADL-Dressing General Eval Upper Body Dressing Ability Independent Lower Body Dressing Ability Moderate Assistance Areas Needing Assistance Socks,Shoes Comments OT Dressing Comments Pt would benefit from assist or obtaining LB dressing equipment. OT ADL-Toileting Comments OT Toileting Comments Pt states used the toilet earlier. Educated pt to be mindful of her right knee positioning especially during toileting and dressing needs. OT ADL-Bathing Comments OT Bathing Comments Pt states has a corner shower that is too small for a shower chair but that her to assist and can lean on the shower wall per pt. Otherwise best to get a tub bench for the tub shower. M5 OT- IP IADL's Start: 01/05/24 10:35 Freq: Status: Active Protocol: Document 01/05/24 10:35 [facility] (Rec: 01/05/24 10:51 [facility] [id number]) OT-Instrumental Activities of Daily Living Deficits IADL Deficits Identified Deficits Home Safety Awareness Awareness of Need for Assistance at Home Good Awareness Ability to Problem Solve Emergency Able to Problem Solve Situations Meal Preparation Meal Preparation Caregiver Provides Assist Pricing Clerk Pricing Clerk Caregiver Provides Assist M6 OT- IP Functional Cognition Start: 01/05/24 10:35 Freq: Status: Active Protocol: Document 01/05/24 10:35 [facility] (Rec: 01/05/24 10:51 [facility] [id number]) Cognitive Factors Limiting Selfcare Function Cognitive Ability Level of Alertness Alert Patient Orientation Name,Age,Birthday,Month,Date, Year,Day of Week,Place, Situation Attention Span Ability Capable of Focused Attention, Capable of Sustained Attention Ability to Follow Commands Able to Follow One Step Commands Memory Description Short Term Impaired Cognitive Comments Cognitive Assessment Comments Pt a little forgetful of her home details. Pt needing vc for FWW safety and to slow down. OT- Vision and Hearing OT- Hearing Assessment OT- Hearing Assessment Hearing Impaired OT- Vision Assessment Visual Acuity Glasses For Reading Visual Attentiveness WFL Occular Pursuits WFL M7 OT- IP Mobility and Balance Start: 01/05/24 10:35 Freq: Status: Active Protocol: Document 01/05/24 10:35 [facility] (Rec: 01/05/24 10:51 [facility] [id number]) OT-Transfer Assessment Sit to and From Stand Sit to and from Stand Contact Guard Assistance Transfers Transfer Ability Contact Guard Assistance, Minimal Assistance Technique Transfer Destination Bed,Chair Transfer Technique Stand Step Pivot Devices Transfer Assistive Devices Gait Belt,Front Wheeled Walker ,4 Wheeled Walker Comments Mobility Comments SULEMA for balance as pt is a little unsteady on her feet with the 4ww. CGA with the fww and safer at this time for pt to use. Pt is insistent that she will be fine with her 4ww or that she can just get a fww from the [facility]. OT- Balance Assessment Sitting Balance and Reactions Static Sitting Balance Ability Normal Dynamic Sitting Balance Ability Good Standing Balance and Reactions Static Standing Balance Ability Fair Dynamic Standing Balance Ability Fair M8 OT- IP Objective Assessments Start: 01/05/24 10:35 Freq: Status: Active Protocol: Document 01/05/24 10:35 [facility] (Rec: 01/05/24 10:51 [facility] [id number]) OT Gross Range of Motion Upper Extremity Range of Motion Assessment Within Functional Limits OT Strength Upper Extremity Strength Assessment Within Functional Limits M9 OT- IP Assessment and Plan Start: 01/05/24 10:35 Freq: Status: Active Protocol: Document 01/05/24 10:35 [facility] (Rec: 01/05/24 10:51 [facility] [id number]) OT Summary Assessment and Plan Potential Rehabilitation Potential Excellent Analytic Complexity at Evaluation Low Summary OT Impairments Pain,Strength,Balance, Functional Mobility,Dressing, Toileting,Bathing,Toilet Transfers,Shower Transfers, Activity Tolerance Progress Towards Goals Progressing Toward Goals Assessment Summary Pt low complexity and main barriers are pain, steps, unsteady on her feet and best to have a fww to use. Pt would also benefit from LB dressing and possibly tub bench and HHSP. Pt to go home with assist and attend outpt PT. Goals Self-Feeding Goal Independent Grooming Goal Independent Dressing Goal Independent,Roustabout Supervisor,Sock Aid Toileting Goal Independent Bathing Goal Standby Assistance Toilet Transfer Goal Independent Shower Transfer Goal Standby Assistance Days to Meet Goals 7 Frequency of Treatment Other frequency 5x/week Treatment Plan OT Treatment Plan ADL Training,Functional Mobility,Patient/Family Education,Discharge Planning Discharge Recommendations OT Discharge Recommendations Home with 05/10 Assist Available,Outpatient PT Home Equipment Needs FWW, LB dressing equipment, HHSP, tub bench? Transportation Needs at Discharge Private Vehicle
--- NOTE | 2024-01-05 11:40 | CM.DANOTE ---
B DCP Assesment Note Pt is an 83yo F here following right knee surgery with Dr. Maldonado, pt is POD1 PCP Hannah Zimmer Payer Medicare and Mat P[employer] reviewed EMR. Per chat, pt lives indep with spouse Oumar in [place]. Similar surgery completed June, dc'd home with spouse no CM needs. Per OT, pt has walker/cane at home, rec home with assistance/OP PT, PT eval pending.. dc order in. P: dc home today with spouse support, no identified barriers to safe dc home at this time. CM team will continue to follow as needed LIV Herron Discharge Planning/Care Management CM Discharge Assessment Start: 01/05/24 11:39 Freq: Status: Active Protocol: Document 01/05/24 11:39 SL (Rec: 01/05/24 11:40 SL [id number]) Discharge Planning Assessment Assigned Lacquer Sizer LIV Mackenzie DPOA/Assigned Designee Name Don, spouse Contact Information [phone] Advance Directives? Yes Advance Directives on File Yes History Provided By Patient,Medical Record Prior Living Arrangements House Household Members spouse Independent with ADL's Yes Is patient alert and oriented? Yes DME Already Rented / Owned Bath Bench,FWW / Walker,Cane Discharge Plan Home Transportation Arrangement Family to transport Referrals Initiated None needed Whiteboard Updated in Patient Room with No name and ext. # of Lacquer Sizer Review Status In Process Please Provide Date Initial DC 01/05/24 Assessment Was Performed Next Review Type Continued Stay Review Pre-Anesthesia Assessment Start: 12/28/23 09:40 Freq: Status: Complete Protocol: Document 12/28/23 09:40 LB (Rec: 12/28/23 10:27 LB [id number]) Pre-Anesthesia Assessment PAC Comment 12/28/23 Phone assessment. Patient Information Reviewed Via Phone Assessment Assessment Completed With Patient Diagnostic Results BMP/CMP,CBC,EKG,Urinalysis Comment 11/26/23 at . Primary Care Provider Hannah Zimmer Medical Clearance Received Not Applicable Seen Specialist in Last 12 Months Yes Specialist Seen Location Worker,Emergency, Orthopedist,Other Primary Language Prydeinig Preferred Language Prydeinig Freight Adjuster Required No Height 165.1 cm Weight 81.647 kg Body Mass Index (BMI) 29.9 Hearing Ability Normal Visual Assist Glasses Dentition Type Full- Upper & Lower Barriers to Learning None Other Aids No Comment For reading only. Hx Anesthesia Reactions No Hx Family Anesthesia Reaction No Hx Malignant Hyperthermia No Hx Blood Transfusions No Anesthesia Review Requested No Insulation Hoseman No alcohol intake current alcohol intake frequency 0-2 drinks per day Smoking Status Never smoker Substance Use Type does not use Pain Present Denied Pain Comment Right knee. Musculoskeletal Symptoms Difficulty Walking,Joint Pain History of Falling (Recent or History of Yes ) Comment 08/03/23 seen at . Patient is completely paralyzed or No completely immobile Mental Status Oriented to own ability Comment Will bring walker. Is patient on oxygen? No Does patient have SUNSHINE/SOB No Hx Sleep Apnea No CPAP/BIPAP use not prescribed Currently Taking a Beta Kirk Yes: Metoprolol 100mg daily. Can You Climb a Flight of Stairs Without Yes SOB Hx Chest Pain Yes: Admit 11/05/21-11/06/21 negative cardiac work up Hx SOB No Hx Syncope or Dizziness Yes: Vertigo Anti-Coagulant Therapy No Has a Location Worker Yes Location Worker name Dr Peoples. Cardiac Testing Nuc perf @ 11/06/21, Echo @ [facility] Hx Pacemaker/ICD No Cardiac Clearance Received Not Applicable Dysphagia No Gastrointestinal Symptoms Constipation,Nausea,Reflux Chronic UTI No Urinary Catheter Present No Hx Urinary Self Catheterization No Diabetes No HgbA1C 5.7 Date 11/26/23 Patient No Lactating No Hx Drug Resistant Organism No Presence of External or Internal Medical Yes: Left knee, Bilat IOL. Devices Have you had any close contact with No someone diagnosed with COVID-19? Are you experiencing any of these No symptoms symptoms? Received a COVID vaccine? Yes Marital Status Lives With spouse Current Living Arrangements House Number of Floors (Floors) One Floor Number of Stairs To Enter/Railing? 3 steps with railing. Support System Spouse Does the Patient Have Assistance After Yes Surgery Patient Discharge Plan Description Return Home Do You Have Any Spiritual Beliefs That No May Affect Your HC Choices? Do You Have Any Cultural Practices That No May Affect Your HC Choices? Emergency Contact Name Oumar () Nathalia (daughter) Emergency Contact Phone Number Don: [phone] Nathalia: Advance Directives? Yes Advance Directives on File Yes Power of Psychiatric Rn Yes Power of Psychiatric Rn Name Oumar () Power of Psychiatric Rn PAC Instructions Assistance for 24 hours post- op,Do not shave/clip surgical site,Durable medical equipment ,Medications to take/avoid, Nasal antibiotic,No ETOH/ petroleum product on skin DOS, NPO,Post-op transportation,Pre -surgical wash,Sensory aids, Sturdy shoes/comfortable clothes,Do not bring valuables and remove jewelry
[2024-01-05] MEDS: ONDANSETRON 4 MG ODT PO (11:50)
--- NOTE | 2024-01-05 14:50 | PT.IPTN ---
Current Diagnoses Unilateral primary osteoarthritis, right knee (01/04/24) Surgery Performed Operation Date: 01/04/24 13:45 Actual Procedures p Total Knee Arthroplasty - Robot(Right) - Paris Maldonado MD Physical Therapy Treatment Note M2 PT-IP Current Condition Start: 01/05/24 13:46 Freq: NEEDED Status: Discharge Protocol: Document 01/05/24 10:25 AB (Rec: 01/05/24 13:57 AB [id number]) Physical Therapy Current Condition Current Condition Evaluation Date 01/05/24 Treatment Diagnosis s/p R TKA; difficulty in walking Onset Date 01/04/24 M3 PT-IP Subjective Start: 01/05/24 13:46 Freq: NEEDED Status: Discharge Protocol: Document 01/05/24 14:50 AB (Rec: 01/05/24 17:25 AB [id number]) Subjective Physical Therapy Visit Type Type Treatment Note Visit Start Time 14:50 Visit Stop Time 15:15 Number of OPHTHALMIC ASSISTANT Visits 0 Therapy Pain Assessment Pain When Pain Assessed At Rest Pain Present Pain Present Pain Reported Location right knee Intensity 4 Scale Used Numeric (0 - 10) Pain Management Techniques Apply Cold,Distraction, Modification of Treatment,Re- positioning,Timing of Activity with Medications M4 PT-IP Mobility and Gait Start: 01/05/24 13:46 Freq: NEEDED Status: Discharge Protocol: Document 01/05/24 14:50 AB (Rec: 01/05/24 17:25 AB [id number]) PT-Transfer Assessment Sit to and From Stand Sit to and from Stand Contact Guard Assistance,1 Person Assistance,Use of Upper Extremities Equipment Transfer Assistive Device Gait Belt,4 Wheeled Walker Orthotic/Prosthetic Devices or Brace: No Comments Mobility Comments pt sitting on the chair and spouse in room. spouse agreed to do caregiver training. educated spouse on how to use safety belt and how to assist pt. spouse was able to put safety belt on pt and assisted pt with sit to stand from chair CGA. pt ambulated ~ 50ft using 4WW SBA to CGA. stair climbing training. educated pt and spouse on how to do stairs. pt completed up/ down steps holding on to L rail with B hands min A and cues. spouse was able to antonino tpt. assisted pt back to the room. Left pt in room with spouse. Gait Assessment Gait Gait Assistance Required: Standby Assistance,Contact Guard Assist Distance (Feet) 50 Able to Maintain Weight Bearing Status Yes During Gait Assistive Devices Assistive Device Gait Belt,4 Wheeled Walker Orthotic/Prosthetic Devices or Brace: No Gait Deviations General Gait Pattern Antalgic,Decreased Stride Length,Decreased Feet Clearance Factors Limiting Gait Function Factors Limiting Gait Function Decreased Activity Tolerance, Decreased Strength,Limited Range of Motion,Pain,Poor Balance,Poor Safety Awareness Stair Climbing Assessment Evaluation Level of Assist On Stairs Minimal Assistance,1 Person Assistance Devices Stair Climbing Assistive Devices Left Railing Technique/Endurance Stair Climbing Direction Ascend and Descend Stair Climbing Technique Step to Step Number of Steps Climbed 3 Stair Climbing Set # Repetitions (reps) 1 M5 PT-IP Objective Assessments Start: 01/05/24 13:46 Freq: NEEDED Status: Discharge Protocol: Document 01/05/24 10:25 AB (Rec: 01/05/24 13:57 AB [id number]) Orientation Orientation/Cognition Level of Alertness Alert Orientation Name,Place,Situation Language Function Ability No Deficits Noted Safety Awareness Decreased Safety Awareness Memory Description No Deficits Noted Strength Lower Extremity Strength Assessment Right Impaired Hip 4-/5 Knee 3+/5 Coordination Assessment Gross Coordination Gross Coordination WNL Sensation Assessment Sensation Gross Sensation WNL Muscle Tone Muscle Tone WNL Yes M6 PT-IP Treatment Start: 01/05/24 13:46 Freq: NEEDED Status: Discharge Protocol: Document 01/05/24 14:50 AB (Rec: 01/05/24 17:25 AB [id number]) Physical Therapy Treatment Education Education Provided Safety M7 PT-IP Assessment and Plan Start: 01/05/24 13:46 Freq: NEEDED Status: Discharge Protocol: Document 01/05/24 14:50 AB (Rec: 01/05/24 17:25 AB [id number]) PT Summary Assessment and Plan Potential Rehabilitation Potential Fair Summary Impairments Pain,ROM,Strength,Balance, Coordination,Sensation,Tone, Cognition,Bed Mobility, Transfers,Gait,Activity Tolerance Progress Towards Goals Slow Progress due to Pain,Slow Progress due to Activity Tolerance Assessment Summary pt requiring SBA to CGA with ambulation using 4WW and min A with stair climbing. caregiver training conducted and spouse was able to assist pt safely. pt plans to go home today. Goals Bed Mobility Goal Independent Transfer Goal Independent,Four Wheeled Walker Gait Goal Independent,Four Wheel Walker Gait Distance 200 Other Goals up/down 3 steps L rail ascending Days to Meet Goals 5 Frequency of Treatment Frequency Of Treatment Twice a Day Treatment Plan Physical Therapy Treatment Plan Bed Mobility Training,Transfer Training,Gait Training, Therapeutic Exercise,Balance Retraining,Post Op Education, Discharge Planning,Hot or Cold Pack,Neuromuscular Re-ed, Coordination Retraining,Manual Therapy Weight Bearing Status Weight Bearing Status Weight Bear as Tolerated Allowed Weight Bearing Amount (enter % RLE WBAT or #) (%) Recommendations To Nursing Amount of Assist Needed 1 Person Assist Discharge Recommendations PT Discharge Recommendations Home with Assistance, Outpatient PT Transportation Needs at Discharge Private Vehicle
[2024-01-05] MEDS: polyethylene glycoL 3350 17 GM POWD.PACK PO (15:18)
== END 2024-01-05 15:38 | disposition home or self-care (01) ==
LOC: OR 11:29 → AC 16:40
PROVIDERS: PCP Physician Assistant; Referring Provider Orthopaedic Surgery; Visit Provider Orthopaedic Surgery
PROC: 0SRC0JZ Replacement of Right Knee Joint with Synthetic Substitute, Open Approach (ICD-10-PCS; CPT 27447; principal; 2024-01-04 13:45)
DX: M17.11 Unilateral primary osteoarthritis, right knee (principal); M25.761 Osteophyte, right knee
CPT/HCPCS: 27447; 36415; 73560; 85014; 85018; 97162; 97165; 97530; 97535; C1776; C9290; J0171; J0690; J1100; J2405; J2704; J3010

== ENCOUNTER → 2024-03-31 09:28 | Outpatient (CLI) | payer MEDICARE, OTHER, SELFPAY ==
[2024-01-04 18:12] VITALS: BMI 29.9
--- NOTE | 2024-03-31 09:29 | DI.MG.S_ITS ---
UNILATERAL LEFT DIGITAL DIAGNOSTIC MAMMOGRAM 3D/2D: 03/31/2024 CLINICAL: Left breast pain. Comparison is made to exams dated: 12/13/2023 mammogram, 12/08/2022 mammogram, 11/26/2021 mammogram, and 05/26/2021 mammogram - [facility]. The breasts are almost entirely fatty (category a/<25% glandular tissue). No significant masses, calcifications, or other findings are seen in the breast. Stable left lumpectomy and dystrophic calcifications. IMPRESSION: INCOMPLETE: NEED ADDITIONAL IMAGING EVALUATION No mammographic evidence of malignancy. Stable left lumpectomy. A targeted ultrasound is recommended and will immediately follow. This exam was interpreted at Station ID: [id number]. NOTE: For mammograms, a report in lay terms will be sent to the patient. Approximately 15% of breast malignancies will not be visualized mammographically. In the management of a palpable breast mass, a negative mammogram must not discourage biopsy of a clinically suspicious lesion. Electronically Signed By: Jose Bolaños M.D. slc/:03/31/2024 10:42:59 letter sent: Additional Imaging Needed ACR BI-RADS Category 0: Incomplete: Need Additional Imaging Evaluation
--- NOTE | 2024-03-31 09:30 | DI.US.S_ITS ---
LIMITED ULTRASOUND OF LEFT BREAST AND AXILLA: 03/31/2024 CLINICAL: Focal left breast pain. Comparison is made to exams dated: 03/31/2024 mammogram, 12/13/2023 mammogram, 12/08/2022 mammogram, 11/26/2021 mammogram, 05/26/2021 mammogram, and 11/25/2020 mammogram - [facility]. Color flow and real-time ultrasound of the left breast 2 o'clock, and axilla regions were performed. Hargrove scale images of the real-time examination were reviewed. There is a benign post-surgical scar in the left breast at 2 o'clock middle depth. This correlates with mammography findings. No significant abnormalities were seen sonographically in the left axilla. IMPRESSION: BENIGN There is no sonographic evidence of malignancy. The post-surgical scar in the left breast is benign. No enlarged left axillary lymph nodes. A 1 year screening mammogram is recommended. 12/13/2024. Exam findings were conveyed to the patient. Patient is advised to monitor for significant change. Clinical follow-up as needed. This exam was interpreted at Station ID: [id number]. Electronically Signed By: Jose Bolaños M.D. slc/:03/31/2024 10:46:53 letter sent: Normal Exam ACR BI-RADS Category 2: Benign
== END ==
LOC: MAMMO 09:29
PROVIDERS: PCP Physician Assistant; Referring Provider Physician Assistant; Visit Provider Physician Assistant
DX: R92.313 Mammographic fatty tissue density, bilateral breasts (principal); N64.4 Mastodynia; L90.5 Scar conditions and fibrosis of skin; Z85.3 Personal history of malignant neoplasm of breast
CPT/HCPCS: 76642; 77065; G0279

== ENCOUNTER → 2024-09-26 12:57 | Outpatient (CLI) | payer MEDICARE, OTHER, SELFPAY ==
[2024-01-04 18:12] VITALS: BMI 29.9
[2024-09-26 14:18] LABS: Add Manual Diff / Slide Review NO; Hematocrit 38.6 % (36-46); Hemoglobin 12.6 g/dL (12.0-16.0); Lymphocytes Absolute Auto 1200 /uL (1100-4500); Mean Corpuscular HGB Conc 32.8 % (30-36); Mean Corpuscular Hemoglobin 29.6 PG (26-34); Mean Corpuscular Volume 90.3 fL (80-100); Platelet Count 271 X10^3/uL (150-400)
== END ==
PROVIDERS: PCP Physician Assistant; Referring Provider Physician Assistant; Visit Provider Physician Assistant
DX: Z96.651 Presence of right artificial knee joint (principal)
CPT/HCPCS: 36415; 85025; 85651; 86140

== ENCOUNTER → 2025-02-15 13:57 | Outpatient (CLI) | payer MEDICARE, OTHER, SELFPAY ==
[2024-01-04 18:12] VITALS: BMI 29.9
--- NOTE | 2025-02-15 14:00 | DI.MG.S_ITS ---
MM screening mammo BI: 02/15/2025. BI-RADS: 2 CLINICAL: 84-year old female for bilateral screening mammogram. No Tyrer-Cuzick risk score calculation due to the patient's personal history of breast cancer. Patient reports a history of left breast carcinoma diagnosed at age 67. Status-post left lumpectomy with radiation therapy and hormonal therapy. Current reported family history of breast cancer: mother. PRIOR EXAMS 03/31/2024, 12/13/2023, 12/08/2022, 11/26/2021. MAMMOGRAPHY TECHNIQUE: 2D and 3D (tomosynthesis) digital mammographic views obtained, with additional images as needed for full coverage. Current study was also evaluated with a Computer Aided Detection (CAD) system. DENSITY B. There are scattered areas of fibroglandular density. MAMMOGRAPHY FINDINGS Right: There are no suspicious masses, calcifications, or other findings in the breast. No significant change from comparison. Left: Benign-appearing post-surgical changes noted on the left. There are no suspicious masses, calcifications, or other findings in the breast. No significant change from comparison. IMPRESSION: * No evidence of malignancy with benign findings. RECOMMENDATIONS Bilateral * Annual screening mammography. OVERALL ASSESSMENT CATEGORY BI-RADS-2: Benign. [employer] recommends annual screening mammography beginning at age 40 for women with average risk of breast cancer. ELECTRONICALLY SIGNED: Perez Ray M.D. on 02/16/2025 at 09:02:16 AM PT Interpreting Station ID: [id number]
== END ==
LOC: MAMMO 14:00
PROVIDERS: PCP Physician Assistant; Referring Provider Physician Assistant; Visit Provider Physician Assistant
DX: Z12.31 Encounter for screening mammogram for malignant neoplasm of breast (principal); Z85.3 Personal history of malignant neoplasm of breast; Z80.3 Family history of malignant neoplasm of breast
CPT/HCPCS: 77063; 77067